=== PATIENT | male | born 1960 | race Caucasian/White ===

== ENCOUNTER → 2017-02-20 | Outpatient (CLI) | payer MEDICARE, MEDICAID ==
--- NOTE | 2017-02-20 12:53 | XCELERA REPORT ---
[address] [address] Lower Extremity Arterial Evaluation Name: JEYSON HELLER Age: 56 yrs Gender: Male : 1960 Patient Status: Outpatient Patient Location: Study Date: 02/20/2017 10:25 AM Procedure: A color flow and duplex scan of the lower extremity arteries was performed bilaterally with velocity and waveform anaylsis. Ankle brachial indicies performed. Reason For Study: PAD Ordering Physician: CHARLEY ATKINSON Performed By: Chiara Batista Measurements and Calculations Right Left MEDICAL INSTRUCTOR PSV 114.1 97.6 cm/sec Prox PFA PSV -106.2 -82.5 cm/sec Prox SFA PSV -128.9 105.9 cm/sec Mid SFA PSV -109.7 -101.2 cm/sec Dist SFA PSV -110.3 -134.1 cm/sec Prox Pop A PSV 59.7 85.9 cm/sec Prox KLARISSA PSV 80.5 257.7 cm/sec Mid KLARISSA PSV 101.2 33.7 cm/sec Dist KLARISSA PSV 78.6 cm/sec Prox EVENT MARKETING ASSISTANT PSV 60.9 cm/sec Mid EVENT MARKETING ASSISTANT PSV 73.5 cm/sec Dist EVENT MARKETING ASSISTANT PSV 18.6 -63.3 cm/sec Prox Rayray A PSV 16.1 51.9 cm/sec Mid Rayray A PSV 17.3 77.0 cm/sec Dist Rayray A PSV -20.6 -73.9 cm/sec Goldy Pedis PSV 96.3 42.7 cm/sec Right Side Arterial Evaluation Normal velocity and triphasic waveforms noted from the Common Femoral artery to the Dorsalis Pedis artery. Biphasic in the Deep Femoral. Occluded Posterior Tibial with retrograde reconstitution. Ankle Brachial index was not obtainable due to non compressibility. Left Side Arterial Evaluation Normal velocity and triphasic waveforms noted from the Common Femoral artery to the Posterior Tibial artery. Biphasic in the Deep Femoral. Occluded Anterior Tibial after a proximal stenosis. Biphasic Dorsalis Pedis, reconstituted. Ankle Brachial index was not obtainable due to non compressibility. Interpretation Summary Mild hemodynamically significant lesions in the bilateral lower extremities, on duplex imaging, at rest. Quite good apparent collateral formation. : CHARLEY ATKINSON > Margarito Mata
== END ==
LOC: SP 09:59
PROVIDERS: ATTEND Surgery
DX: I73.9 Peripheral vascular disease, unspecified (principal)
CPT/HCPCS: 93925

== ENCOUNTER 2017-03-14 05:06 | Inpatient (IN) | payer MEDICARE, MEDICAID ==
--- NOTE | 2017-03-14 05:16 | ER Document Report ---
Doctor's Note Notes: 03/14/17 05:14 I performed a quick triage evaluation of the patient. Patient is a 56-year-old male who presents with complaints of severe vomiting and diarrhea. Patient then apparently passed out. Paramedics were called. When they arrived patient had an O2 saturation in the 70s. He said his breathing very shallow. He was poorly responsive aaccording to the paramedics. Upon office workforce planner arrival he was also hypotensive, but this has resolved with a fluids bolus. He is now much more responsive awake and alert. Does not remember exactly what happened. He denies any chest pain or back pain. No abdominal pain. Patient apparently had a large amount of diarrheal stool health. There is no blood in it. No vomiting of blood. He denies drinking alcohol on a daily basis. He denies any recent fevers or infections. He has history of COPD. Has a history of diabetes. He does have a healing toe infection on the big toe of the left foot. On exam patient is very thin and cachectic. He is awake alert and answering questions appropriately hoarse. He is in no distress. He denies any pain. Heart is regular rate and rhythm. His abdomen is soft nontender. There is no focal neurologic deficits on exam this time. EKG has been performed in shows sinus tachycardia. Patient has some scattered concave up ST segment elevations without reciprocal depressions. No ischemic T-wave inversions. Intervals are within normal range. I will order blood work. Will order chest x -ray. Will place on quality assurance monitor body. 03/14/17 05:18
[2017-03-14 05:45] LABS: HEMATOCRIT 40.6 % (37.9-51.0); HEMOGLOBIN 13.3 g/dL (13.5-17.0); HGB HCT DIFFERENCE -0.7; MEAN CORPUSCULAR HEMOGLOBIN 29.2 pg (27.0-33.4); MEAN CORPUSCULAR HGB CONC 32.7 g/dL (32.0-36.0); MEAN CORPUSCULAR VOLUME 89 fl (80-97); RED BLOOD COUNT 4.54 10^6/uL (4.35-5.55); RED CELL DISTRIBUTION WIDTH 14.4 % (11.5-14.0); WHITE BLOOD COUNT 13.4 10^3/uL (4.0-10.5)
[2017-03-14] MEDS ORDERED: NORMAL SALINE 1000 ML 1,000 ML IV ONE ×2 (05:45→06:33)
--- NOTE | 2017-03-14 05:51 | RADIOLOGY REPORT (SQ) ---
EXAM DESCRIPTION: CHEST SINGLE VIEW COMPLETED DATE/TIME: 03/14/2017 5:39 am REASON FOR STUDY: syncope COMPARISON: 06/15/2015. EXAM PARAMETERS: NUMBER OF VIEWS: One view. TECHNIQUE: Single frontal radiographic view of the chest acquired. RADIATION DOSE: NA LIMITATIONS: None. FINDINGS: LUNGS AND PLEURA: Small to moderate reticulonodular markings and or scar of the left upper lobe and left mid-lower lung field. Moderate left lung volume. No significant interval change comp ared with prior exam from May 2015. MEDIASTINUM AND HILAR STRUCTURES: No masses. Contour normal. HEART AND VASCULAR STRUCTURES: Heart normal in size. Normal vasculature. BONES: No acute findings. HARDWARE: None in the chest. OTHER: No other significant finding. IMPRESSION: No acute cardiopulmonary findings. TECHNICAL DOCUMENTATION: JOB ID: [id number]
[2017-03-14 06:01] LABS: ALANINE AMINOTRANSFERASE 20 U/L (21-72); ALBUMIN 3.1 g/dL (3.5-5.0); ALKALINE PHOSPHATASE 95 U/L (38-126); ANION GAP 11 (5-19); ASPARTATE AMINO TRANSFERASE 30 U/L (17-59); BILIRUBIN,DIRECT 0.6 mg/dL (0.0-0.4); BILIRUBIN,TOTAL 0.8 mg/dL (0.2-1.3); BLOOD UREA NITROGEN 15 mg/dL (7-20); CALCIUM 8.7 mg/dL (8.4-10.2); CARBON DIOXIDE 23 mmol/L (22-30); CHLORIDE 99 mmol/L (98-107); CREATINE KINASE 187 U/L (55-170); CREATININE RESULT 1.72 mg/dL (0.52-1.25); GLUCOSE 141 mg/dL (75-110); LIPASE 57.3 U/L (23-300); POTASSIUM 3.9 mmol/L (3.6-5.0); SODIUM 133.3 mmol/L (137-145)
[2017-03-14 06:03] LABS: ALCOHOL < 10 mg/dL (NONE DETECTED)
[2017-03-14 06:08] LABS: BAND NEUTROPHILS % (MANUAL) 9 % (3-5); BASOPHILS % (MANUAL) 0 % (0-2); EOSINOPHILS % (MANUAL) 1 % (0-6); LYMPHOCYTES % (MANUAL) 6 % (13-45); TOTAL CELLS COUNTED 100
[2017-03-14 06:09] LABS: RBC MORPHOLOGY COMMENT NORMO-CYTIC/CHROMIC; TOXIC GRANULATION SLIGHT; TOXIC VACUOLATION PRESENT
[2017-03-14 06:12] LABS: CREATINE KINASE MB 2.34 ng/mL (<4.55)
[2017-03-14 06:15] LABS: TROPONIN I 0.043 ng/mL
--- NOTE | 2017-03-14 06:29 | ER Document Report ---
ED Blood Pressure Problem - General Mode of Arrival: Medic Information source: Patient, Friend - Girlfriend, Emergency Med Personnel TRAVEL OUTSIDE OF THE [place] IN LAST 30 DAYS: No - HPI Patient complains to provider of: Low blood pressure Onset: Just prior to arrival Associated symptoms: Other - See above <MAYO FOSTER - Last Filed: 03/14/17 07:02> <FABIEN PASCUAL - Last Filed: 03/14/17 11:43> - General Chief Complaint: Blood Pressure Problem Stated Complaint: low blood pressure Time Seen by Provider: 03/14/17 06:17 Notes: Patient is a 56 year old male, with a past medical history including diabetes and IBS constipation type, who presents to the emergency department via EMS for low blood pressure and unresponsiveness. Per girlfriend, patient had nausea, vomiting, and diarrhea for about 3 hours between 1230 and 330 this morning in which he lost around 3 gallons of fluids. Girlfriend states that this episode was not like his normal IBS episodes. After going to lay down patient became incoherent, girlfriend took BP and it was low so she called EMS at around 0400. EMS report that patient had O2 saturation of 75% and a blood pressure of 70/30 with pulse of 130BPM when they arrived. Patient states he is feeling normal now and would like to go home after receiving 2L of fluids en route and 1L in facility. Patient's girlfriend reports patient has had an infection in his left big toe for the past 6 months which is being monitored by Dr. Ayden Hyde DPM. Patient has had no recent antibiotics. Patient currently takes 10mg of Lisinopril BID. (MAYO FOSTER) - Related Data Allergies/Adverse Reactions: No Known Allergies Allergy (Unverified 06/13/12 00:21) Home Medications: Current Home Medications Albuterol Sulfate [Proair HFA Inhalation Aerosol 8.5 gm MDI] 2 puff IH Q4HP PRN 03/14/17 [History] Cetirizine HCl [Zyrtec 10 mg Tablet] 10 mg PO DAILY 03/14/17 [History] Fluticasone/Salmeterol [Advair 250-50 Diskus 14 Dose/Diskus] 1 puff IH Q12 03/14 [History] Gabapentin [Neurontin 300 mg Capsule] 300 mg PO Q8 03/14/17 [History] Insulin Glargine,Hum.rec.anlog [Lantus Solostar] 19 units SQ QHS 03/14/17 [ History] Insulin Lispro [Humalog Insulin (Lispro) 100 unit/mL] 13 units SQ [id number] [History] Insulin Lispro [Humalog Insulin (Lispro) 100 unit/mL] 19 units SQ BIDLS [History] Lisinopril [Prinivil] 20 mg PO DAILY 03/14/17 [History] Omeprazole 40 mg PO DAILY 03/14/17 [History] Oxycodone HCl/Acetaminophen [Percocet 10-325 mg Tablet] 1 tab PO Q8 03/14/17 [ History] Pentoxifylline [Trental 400 mg Tablet.sa] 400 mg PO Q8 03/14/17 [History] Ropinirole HCl 1.5 mg PO DAILY 03/14/17 [History] Simvastatin [Zocor 20 mg Tablet] 20 mg PO QHS 03/14/17 [History] Past Medical History - General Information source: Patient - Social History Smoking Status: Current Every Day Smoker Family History: Reviewed & Not Pertinent Patient has suicidal ideation: No Patient has homicidal ideation: No - Past Medical History Cardiac Medical History: Reports: Hx Hypercholesterolemia, Hx Hypertension Pulmonary Medical History: Reports: Hx COPD Endocrine Medical History: Reports: Hx Diabetes Mellitus Type 2 GI Medical History: Reports: Hx Gastroesophageal Reflux Disease, Hx Irritable Bowel - constipation type Past Surgical History: Reports: Hx Orthopedic Surgery - Immunizations Immunizations up to date: Yes Hx Diphtheria, Pertussis, Tetanus Vaccination: Yes - unk <MAYO FOSTER - Last Filed: 03/14/17 07:02> Review of Systems - Review of Systems Constitutional: See HPI, Other - low blood pressure and incoherrent EENT: No symptoms reported Cardiovascular: No symptoms reported Respiratory: No symptoms reported Gastrointestinal: See HPI, Diarrhea, Nausea, Vomiting Genitourinary: No symptoms reported Male Genitourinary: No symptoms reported Musculoskeletal: No symptoms reported Skin: No symptoms reported Hematologic/Lymphatic: No symptoms reported Neurological/Psychological: No symptoms reported -: Yes All other systems reviewed and negative <MAYO FOSTER - Last Filed: 03/14/17 07:02> Physical Exam - Vital signs Interpretation: Normal - General General appearance: Appears well, Other - sleepy during exam - HEENT Head: Normocephalic, Atraumatic - Respiratory Respiratory status: No respiratory distress Chest status: Nontender Breath sounds: Normal Chest palpation: Normal - Cardiovascular Rhythm: Regular Heart sounds: Normal auscultation Murmur: No - Abdominal Inspection: Normal Distension: No distension Bowel sounds: Normal Tenderness: Nontender Organomegaly: No organomegaly - Back Back: Normal, Nontender - Extremities General upper extremity: Normal inspection Foot: Other - chronic ulcer on left 1st toe - Neurological Neuro grossly intact: Yes Cognition: Normal Orientation: AAOx4 [place] Coma Scale Eye Opening: Spontaneous [place] Coma Scale Verbal: Oriented [place] Coma Scale Motor: Obeys Commands [place] Coma Scale Total: 15 Speech: Normal - Psychological Associated symptoms: Normal affect, Normal mood - Skin Skin Temperature: Warm Skin Moisture: Dry Skin Color: Normal <MAYO FOSTER - Last Filed: 03/14/17 07:02> Course - Laboratory Result Diagrams: 03/14/17 05:15 03/14/17 05:15 <MAYO FOSTER - Last Filed: 03/14/17 07:02> - Laboratory Result Diagrams: 03/14/17 05:15 03/14/17 05:15 - Diagnostic Test Radiology reviewed: Image reviewed, Reports reviewed - Patient shows stable COPD - EKG Interpretation by Tx EKG shows normal: Sinus rhythm, [place], Intervals, QRS Complexes, ST-T Waves Rate: Tachycardia - 116 P Waves: LAE - Consults Dr. De LaV ega Consulted provider: will come to ER <FABIEN PASCUAL - Last Filed: 03/14/17 11:43> - Vital Signs Vital signs: Temp Pulse Resp BP Pulse Ox 98.3 F 117 H 18 136/79 H 100 03/14/17 05:14 03/14/17 05:14 03/14/17 10:31 03/14/17 10:31 03/14/17 11:00 - Laboratory Laboratory results interpreted by me: 03/14/17 03/14/17 03/14/17 05:15 05:15 05:15 WBC 13.4 H Hgb 13.3 L RDW 14.4 H Band Neutrophils % 9 H Lymphocytes % (Manual) 6 L Abs Neuts (Manual) 11.0 H Abs Monocytes (Manual) 1.5 H Sodium 133.3 L Creatinine 1.72 H Est GFR ( Amer) 50 L Est GFR (Non-Af Amer) 41 L Glucose 141 H POC Glucose Lactic Acid 3.2 H Direct Bilirubin 0.6 H ALT 20 L Creatine Kinase 187 H Total Protein 6.0 L Albumin 3.1 L 03/14/17 05:46 WBC Hgb RDW Band Neutrophils % Lymphocytes % (Manual) Abs Neuts (Manual) Abs Monocytes (Manual) Sodium Creatinine Est GFR ( Amer) Est GFR (Non-Af Amer) Glucose POC Glucose 116 H Lactic Acid Direct Bilirubin ALT Creatine Kinase Total Protein Albumin Critical Care Note - Critical Care Note Total time excluding time spent on procedures (mins): 45 <FABIEN PASCUAL - Last Filed: 03/14/17 11:43> Discharge <MAYO FOSTER - Last Filed: 03/14/17 07:02> - Discharge Admitting Provider: Hospitalist Unit Admitted: IMCU <FABIEN PASCUAL - Last Filed: 03/14/17 11:43> - Discharge Clinical Impression: Nausea, vomiting and diarrhea, Septic shock Hypotension Qualifiers: Hypotension type: other hypotension type Qualified Code(s): I95.89 - Other hypotension Leukocytosis Qualifiers: Leukocytosis type: bandemia Qualified Code(s): D72.825 - Bandemia COPD (chronic obstructive pulmonary disease) Qualifiers: COPD type: unspecified COPD Qualified Code(s): J44.9 - Chronic obstructive pulmonary disease, unspecified Diabetes Qualifiers: Diabetes mellitus type: type 2 Diabetes mellitus complication status: with unspecified complications Diabetes mellitus director long term care insulin use: unspecified longterm insulin use status Qualified Code(s): E11.8 - Type 2 diabetes mellitus with unspecified complications Condition: Fair Disposition: ADMITTED INPATIENT Scribe Attestation: 03/14/17 09:07 I personally performed the services described in the documentation, reviewed and edited the documentation which was dictated to the scribe in my presence, and it accurately records my words and actions. (FABIEN PASCUAL) Scribe Documentation - Scribe Written by Scribe:: randy Knight, 03/14/17, 0704 acting as scribe for :: Lynnette <MAYO FOSTER - Last Filed: 03/14/17 07:02>
[2017-03-14] MEDS ORDERED: ERTAPENEM SODIUM INJ 1 GM VIAL IV ONE (07:01)
[2017-03-14] MEDS ORDERED: RINGERS SOLUTION,LACTATED 1,000 ML IV ONE (07:43)
[2017-03-14] MEDS ORDERED: ONDANSETRON HCL INJ/PF 4 MG/2 ML SDV IV PRN (09:05)
[2017-03-14] MEDS: DEXTROSE 5%-NORMAL SALINE 1,000 ML IV PRN ×2 (09:55→20:23)
[2017-03-14] MEDS ORDERED: ENOXAPARIN SODIUM INJ 40 MG/0.4 ML DISP.SYRIN SUBCUT ONE (10:00)
[2017-03-14 10:13] LABS: APPEARANCE,URINE CLEAR; BILIRUBIN,URINE NEGATIVE (NEGATIVE); GLUCOSE, URINE >=500 mg/dL (NEGATIVE); KETONES,URINE NEGATIVE (NEGATIVE); LEUKOCYTE ESTERASE,URINE NEGATIVE (NEGATIVE); NITRITE,URINE NEGATIVE (NEGATIVE); PROTEIN,URINE 30 mg/dL (NEGATIVE); URINE SPECIFIC GRAVITY 1.005; UROBILINOGEN,URINE NEGATIVE mg/dL (<2.0)
--- NOTE | 2017-03-14 14:03 | PDOC H&P ---
History of Present Illness Admission Date/PCP: 03/14/17 09:05 History of Present Illness: JEYSON HELLER is a 56 year old male with a background history of type 2 diabetes, hypertension, hyperlipidemia, COPD, ongoing tobacco abuse, irritable bowel syndrome with a tendency to constipation. Overnight he developed the fairly sudden onset of explosive nausea vomiting and diarrhea. He had several episodes. He gradually became more somnolent and incoherent. Low blood pressure was measured at home and he was brought by EMS to the hospital. The EMS also documented hypotension with a BP of 70/40 and a pulse of 130, as well as pulse oximetry of 75%. In the emergency department he received 5 L of IV fluid after which his blood pressure improved. His white blood count 13.4 with 73 segs and 9 bands and 11% monos. Creatinine was 1.72 with a baseline one year ago of 0.87. Lactic acid was 3.2. Chest x-ray is verbally reported as stable COPD. He received 1 g of Invanz in the ED. Blood cultures and urine analysis have been ordered. He will now be admitted to the MICU for further evaluation and treatment. Past Medical History Cardiac Medical History: Reports: Hyperlipidema, Hypertension Pulmonary Medical History: Reports: Chronic Obstructive Pulmonary Disease (COPD) Endocrine Medical History: Reports: Diabetes Mellitus Type 2 GI Medical History: Reports: Gastroesophageal Reflux Disease Past Surgical History Past Surgical History: Reports: Orthopedic Surgery Social History Smoking Status: Current Every Day Smoker - Advance Directive Resuscitation Status: Full Code Family History Family History: Reviewed & Not Pertinent Parental Family History Reviewed: No Children Family History Reviewed: No Sibling(s) Family History Reviewed.: No Medication/Allergy Home Medications: Albuterol Sulfate [Proair HFA Inhalation Aerosol 8.5 gm MDI] 2 puff IH Q4HP PRN 03/14/17 Cetirizine HCl [Zyrtec 10 mg Tablet] 10 mg PO DAILY 03/14/17 Fluticasone/Salmeterol [Advair 250-50 Diskus 14 Dose/Diskus] 1 puff IH Q12 03/14 Gabapentin [Neurontin 300 mg Capsule] 300 mg PO Q8 03/14/17 Insulin Glargine,Hum.rec.anlog [Lantus Solostar] 19 units SQ QHS 03/14/17 Insulin Lispro [Humalog Insulin (Lispro) 100 unit/mL] 13 units SQ WBRKFST Insulin Lispro [Humalog Insulin (Lispro) 100 unit/mL] 19 units SQ BIDLS Lisinopril [Prinivil] 20 mg PO DAILY 03/14/17 Omeprazole 40 mg PO DAILY 03/14/17 Oxycodone HCl/Acetaminophen [Percocet 10-325 mg Tablet] 1 tab PO Q8 03/14/17 Pentoxifylline [Trental 400 mg Tablet.sa] 400 mg PO Q8 03/14/17 Ropinirole HCl 1.5 mg PO DAILY 03/14/17 Simvastatin [Zocor 20 mg Tablet] 20 mg PO QHS 03/14/17 Allergies/Adverse Reactions: No Known Allergies Allergy (Unverified 06/13/12 00:21) Review of Systems ROS unobtainable: Due to mental status - somnolent Physical Exam Vital Signs: Temp Pulse Resp BP Pulse Ox 97.9 F 98 13 157/90 H 96 03/14/17 11:48 03/14/17 11:48 03/14/17 11:48 03/14/17 11:48 03/14/17 11:48 Intake & Output 03/13/17 03/14/17 03/15/17 06:59 06:59 06:59 Weight 54.7 kg General appearance: PRESENT: well-developed, well-nourished, other - appears ill , foul odor in room after recent diarrhea BM Head exam: PRESENT: atraumatic, normocephalic Eye exam: PRESENT: conjunctiva pink, EOMI, PERRLA. ABSENT: scleral icterus Ear exam: PRESENT: normal external ear exam Mouth exam: PRESENT: dry mucosa, tongue midline Neck exam: ABSENT: carotid bruit, JVD, lymphadenopathy, thyromegaly Respiratory exam: PRESENT: clear to auscultation zaid. ABSENT: rales, rhonchi, wheezes Cardiovascular exam: PRESENT: RRR. ABSENT: diastolic murmur, rubs, systolic murmur Pulses: PRESENT: normal dorsalis pedis pul Vascular exam: PRESENT: normal capillary refill GI/Abdominal exam: PRESENT: soft. ABSENT: distended, guarding, mass, organolmegaly, rebound, tenderness Rectal exam: PRESENT: deferred Extremities exam: PRESENT: full ROM. ABSENT: calf tenderness, clubbing, pedal edema Neurological exam: PRESENT: altered, other - somnolent. ABSENT: motor sensory deficit Skin exam: PRESENT: dry, intact, warm. ABSENT: cyanosis, rash Results Laboratory Results: 03/14/17 03/14/17 09:45 10:58 Lactic Acid 1.0 Urine Color YELLOW Urine Appearance CLEAR Urine pH 7.0 Ur Specific [place] 1.005 Urine Protein 30 H Urine Glucose (UA) >=500 H Urine Ketones NEGATIVE Urine Blood SMALL H Urine Nitrite NEGATIVE Ur Leukocyte Esterase NEGATIVE Urine WBC (Auto) 1 Urine RBC (Auto) 1 Impressions: Chest X-Ray 03/14/17 05:12 IMPRESSION: No acute cardiopulmonary findings. Assessment & Plan - Diagnosis (1) Gastroenteritis Is this a current diagnosis for this admission?: YesPlan: This may be viral in etiology. Stool culture has been requested. (2) Dehydration Is this a current diagnosis for this admission?: YesPlan: He received 5 L of IV fluids in the ED. We will continue IV fluids. (3) Hypotension Qualifiers: Hypotension type: other hypotension type Qualified Code(s): I95.89 - Other hypotension Is this a current diagnosis for this admission?: YesPlan: The blood pressure is already better after IV fluids. Will monitor. Hold lisinopril for now. (4) DM2 (diabetes mellitus, type 2) Qualifiers: Diabetes mellitus complication status: without complication Is this a current diagnosis for this admission?: YesPlan: We will continue home medications, monitor, and adjust accordingly. (5) HTN (hypertension) Qualifiers: Hypertension type: essential hypertension Qualified Code(s): I10 - Essential (primary) hypertension Is this a current diagnosis for this admission?: YesPlan: He is actually hypotensive at this point. Will hold lisinopril. (6) COPD (chronic obstructive pulmonary disease) Qualifiers: COPD type: unspecified COPD Qualified Code(s): J44.9 - Chronic obstructive pulmonary disease, unspecified Is this a current diagnosis for this admission?: YesPlan: There is history of ongoing tobacco abuse. Will use nicotine patch if he is symptomatic. (7) Hyperlipidemia associated with type 2 diabetes mellitus Is this a current diagnosis for this admission?: Yes (8) GERD (gastroesophageal reflux disease) Qualifiers: Esophagitis presence: esophagitis presence not specified Qualified Code(s): K21.9 - Gastro-esophageal reflux disease without esophagitis Is this a current diagnosis for this admission?: YesPlan: Continue PPI. - Time Time Spent: 50 to 70 Minutes Critical Time spent with patient: 35 or more minutes
[2017-03-14] MEDS ORDERED: ALBUTEROL SULFATE HFA (90 MCG/PUFF) 200 PUFF/8.5 GM MDI IH PRN (14:06)
[2017-03-14] MEDS: METRONIDAZOLE 500 MG/NS RTU 100 ML IV SCH (17:38)
[2017-03-14] MEDS ORDERED: GLUCAGON,HUMAN RECOMB 1 MG INJ IM PRN (18:42)
[2017-03-14] MEDS ORDERED: DEXTROSE 50%-WATER SYRINGE 12.5 GM/25 ML DOSE IV PRN (18:42)
[2017-03-14] MEDS ORDERED: DEXTROSE 50%-WATER SYRINGE 25 GM/50 ML DOSE IV PRN (18:42)
[2017-03-14] MEDS ORDERED: DEXTROSE 40% GEL 15 GM TUBE X 2 PO PRN (18:42)
[2017-03-14] MEDS: SIMVASTATIN 10 MG TABLET PO SCH (21:31)
[2017-03-14] MEDS ORDERED: INSULIN GLARGINE,HUM.REC.ANLOG 1,000 UNIT/10 ML UNIT SUBCUT ONE (21:31)
[2017-03-14] MEDS: OXYCODONE-ACETAMINOPHEN 5-325 MG TABLET PO SCH (21:32)
[2017-03-14] MEDS: GABAPENTIN 300 MG CAPSULE PO SCH (21:32)
[2017-03-14] MEDS: OXYCODONE HCL IR 5 MG TABLET PO SCH (21:33)
[2017-03-14] MEDS: PENTOXIFYLLINE 400 MG TABLET.SA PO SCH (21:34)
[2017-03-14] MEDS: INSULIN GLARGINE,HUM.REC.ANLOG 300 UNIT/3 ML INSULN.PEN SUBCUT SCH (21:34)
[2017-03-14] MEDS: FLUTICASONE/SALMETEROL DISKUS 250-50 MCG/DOSE IH SCH (21:34)
[2017-03-14] MEDS ORDERED: METRONIDAZOLE 500 MG/NS RTU 250 MG in CONTAINER,EMPTY 1 EACH IV SCH (22:00)
[2017-03-14] MEDS ORDERED: (PENDING PHARMACY ID) (Oxycodone Hcl/Acetaminophen [Percocet 10-325 Mg Tablet] 1 TAB) PO SCH (22:00)
[2017-03-15] MEDS: METRONIDAZOLE 500 MG/NS RTU 100 ML IV SCH ×3 (03:05→17:25)
[2017-03-15 04:48] LABS: ABSOLUTE BASOPHILS # (AUTO) 0.1 10^3/uL (0.0-0.2); ABSOLUTE MONOCYTES (AUTO) 0.7 10^3/uL (0.1-1.4); ABSOLUTE NEUT (AUTO) 14.8 10^3/uL (1.7-8.2); BASOPHILS % (AUTO) 0.4 % (0-2); EOSINOPHILS % (AUTO) 0.1 % (0-6); HEMATOCRIT 33.8 % (37.9-51.0); HGB HCT DIFFERENCE -0.2; LYMPHOCYTES % (AUTO) 5.9 % (13-45); MEAN CORPUSCULAR HEMOGLOBIN 29.5 pg (27.0-33.4); MEAN CORPUSCULAR HGB CONC 33.2 g/dL (32.0-36.0); MEAN CORPUSCULAR VOLUME 89 fl (80-97); MONOCYTES % (AUTO) 4.1 % (3-13); RED CELL DISTRIBUTION WIDTH 14.6 % (11.5-14.0); SEGMENTED NEUTROPHILS % (AUTO) 89.5 % (42-78); WHITE BLOOD COUNT 16.6 10^3/uL (4.0-10.5)
[2017-03-15 04:57] LABS: HEMOGLOBIN 11.2 g/dL (13.5-17.0)
[2017-03-15 05:04] LABS: ANION GAP 6 (5-19); BLOOD UREA NITROGEN 21 mg/dL (7-20); CALCIUM 7.5 mg/dL (8.4-10.2); CARBON DIOXIDE 21 mmol/L (22-30); CHLORIDE 107 mmol/L (98-107); CREATININE RESULT 1.15 mg/dL (0.52-1.25); GLUCOSE 334 mg/dL (75-110); POTASSIUM 4.3 mmol/L (3.6-5.0); SODIUM 133.5 mmol/L (137-145)
[2017-03-15] MEDS: PENTOXIFYLLINE 400 MG TABLET.SA PO SCH ×3 (05:26→22:01)
[2017-03-15] MEDS: GABAPENTIN 300 MG CAPSULE PO SCH ×3 (05:27→22:00)
[2017-03-15] MEDS: OXYCODONE HCL IR 5 MG TABLET PO SCH ×3 (05:28→21:59)
[2017-03-15] MEDS: OXYCODONE-ACETAMINOPHEN 5-325 MG TABLET PO SCH ×3 (05:28→22:00)
[2017-03-15] MEDS: DEXTROSE 5%-NORMAL SALINE 1,000 ML IV PRN ×2 (05:43→17:33)
[2017-03-15] MEDS: INSULIN REG, HUMAN 100 UNIT/ML 3 ML VIAL (PYX) SUBCUT PRN ×3 (08:01→22:01)
[2017-03-15] MEDS: ENOXAPARIN SODIUM INJ 40 MG/0.4 ML DISP.SYRIN SUBCUT SCH (08:02)
[2017-03-15] MEDS ORDERED: LANSOPRAZOLE 30 MG TAB.RAP.DR PO ONE (09:15)
[2017-03-15] MEDS: CETIRIZINE 10 MG TABLET PO SCH (09:26)
[2017-03-15] MEDS: FLUTICASONE/SALMETEROL DISKUS 250-50 MCG/DOSE IH SCH ×2 (09:28→21:56)
[2017-03-15] MEDS ORDERED: ROPINIROLE HCL 1 MG TABLET PO SCH ×2 (10:00→22:00)
[2017-03-15] MEDS ORDERED: LANSOPRAZOLE 30 MG TAB.RAP.DR PO SCH (10:00)
--- NOTE | 2017-03-15 13:26 | PDOC PROGRESS REPORT ---
Subjective Progress Note for:: 03/15/17 Subjective:: JEYSON HELLER is a 56 year old male with a background history of type 2 diabetes, hypertension, hyperlipidemia, COPD, ongoing tobacco abuse, irritable bowel syndrome with a tendency to constipation. Overnight he developed the fairly sudden onset of explosive nausea vomiting and diarrhea. He had several episodes. He gradually became more somnolent and incoherent. Low blood pressure was measured at home and he was brought by EMS to the hospital. The EMS also documented hypotension with a BP of 70/40 and a pulse of 130, as well as pulse oximetry of 75%. In the emergency department he received 5 L of IV fluid after which his blood pressure improved. His white blood count 13.4 with 73 segs and 9 bands and 11% monos. Creatinine was 1.72 with a baseline one year ago of 0.87. Lactic acid was 3.2. Chest x-ray is verbally reported as stable COPD. He received 1 g of Invanz in the ED. Blood cultures and urine analysis have been ordered. He will now be admitted to the MICU for further evaluation and treatment. There was one recorded bowel movement yesterday. The patient denies any further nausea or vomiting. He has tolerated dinner yesterday and breakfast this morning. He is certainly much more awake and alert than he was yesterday on presentation. Physical Exam Vital Signs: Temp Pulse Resp BP Pulse Ox 97.4 F 91 18 100/48 L 97 03/15/17 11:02 03/15/17 11:02 03/15/17 11:02 03/15/17 11:02 03/15/17 11:02 Intake & Output 03/14/17 03/15/17 03/16/17 06:59 06:59 06:59 Intake Total 3137 Output Total 1550 Balance 1587 Weight 54.8 kg Additional comments: General appearance: PRESENT: well-developed, well-nourished, awake, alert, interactive Head exam: PRESENT: atraumatic, normocephalic Eye exam: PRESENT: conjunctiva pink, EOMI, PERRLA. ABSENT: scleral icterus Ear exam: PRESENT: normal external ear exam Mouth exam: PRESENT: dry mucosa, tongue midline Neck exam: ABSENT: carotid bruit, JVD, lymphadenopathy, thyromegaly Respiratory exam: PRESENT: clear to auscultation zaid. ABSENT: rales, rhonchi, wheezes Cardiovascular exam: PRESENT: RRR. ABSENT: diastolic murmur, rubs, systolic murmur Pulses: PRESENT: normal dorsalis pedis pul Vascular exam: PRESENT: normal capillary refill GI/Abdominal exam: PRESENT: soft. ABSENT: distended, guarding, mass, organolmegaly, rebound, tenderness Rectal exam: PRESENT: deferred Extremities exam: PRESENT: full ROM. ABSENT: calf tenderness, clubbing, pedal edema Neurological exam: PRESENT: awake, alert, interactive, moves all fours Skin exam: PRESENT: dry, intact, warm. ABSENT: cyanosis, rash Results Laboratory Results: 03/15/17 04:39 03/15/17 04:39 03/15/17 03/15/17 04:39 04:39 WBC 16.6 H RBC 3.80 L Hgb 11.2 L D Hct 33.8 L MCV 89 MCH 29.5 MCHC 33.2 RDW 14.6 H Plt Count 196 Seg Neutrophils % 89.5 H Lymphocytes % 5.9 L Monocytes % 4.1 Eosinophils % 0.1 Basophils % 0.4 Absolute Neutrophils 14.8 H Absolute Lymphocytes 1.0 Absolute Monocytes 0.7 Absolute Eosinophils 0.0 Absolute Basophils 0.1 Sodium 133.5 L Potassium 4.3 Chloride 107 Carbon Dioxide 21 L Anion Gap 6 BUN 21 H Creatinine 1.15 Est GFR ( Amer) > 60 Est GFR (Non-Af Amer) > 60 Glucose 334 H Calcium 7.5 L Impressions: Chest X-Ray 03/14/17 05:12 IMPRESSION: No acute cardiopulmonary findings. Assessment & Plan - Diagnosis (1) Gastroenteritis Is this a current diagnosis for this admission?: YesPlan: This may be viral in etiology. Stool culture has been requested. Nausea vomiting and diarrhea seem to be improving. Hydration status is improving. Continue IV fluids. Continue current diet. Awaiting results of blood and stool cultures. Elevated white blood count noted. (2) Dehydration Is this a current diagnosis for this admission?: YesPlan: He received 5 L of IV fluids in the ED and has continued on IV fluids. He is now also eating and drinking. He appears clinically better hydrated. BUN and creatinine have improved. Continue current plan. (3) Hypotension Qualifiers: Hypotension type: other hypotension type Qualified Code(s): I95.89 - Other hypotension Is this a current diagnosis for this admission?: YesPlan: Resolved. (4) DM2 (diabetes mellitus, type 2) Qualifiers: Diabetes mellitus complication status: without complication Is this a current diagnosis for this admission?: YesPlan: We will continue home medications, monitor, and adjust accordingly. (5) HTN (hypertension) Qualifiers: Hypertension type: essential hypertension Qualified Code(s): I10 - Essential (primary) hypertension Is this a current diagnosis for this admission?: YesPlan: Holding lisinopril until BP is hypertensive. (6) COPD (chronic obstructive pulmonary disease) Qualifiers: COPD type: unspecified COPD Qualified Code(s): J44.9 - Chronic obstructive pulmonary disease, unspecified Is this a current diagnosis for this admission?: YesPlan: There is history of ongoing tobacco abuse. Will use nicotine patch if he is symptomatic. (7) Hyperlipidemia associated with type 2 diabetes mellitus Is this a current diagnosis for this admission?: Yes (8) GERD (gastroesophageal reflux disease) Qualifiers: Esophagitis presence: esophagitis presence not specified Qualified Code(s): K21.9 - Gastro-esophageal reflux disease without esophagitis Is this a current diagnosis for this admission?: YesPlan: Continue PPI.
[2017-03-15] MEDS: INSULIN GLARGINE,HUM.REC.ANLOG 300 UNIT/3 ML INSULN.PEN SUBCUT SCH (21:55)
[2017-03-15] MEDS: SIMVASTATIN 10 MG TABLET PO SCH (21:59)
[2017-03-16] MEDS: METRONIDAZOLE 500 MG/NS RTU 100 ML IV SCH ×3 (01:33→17:15)
[2017-03-16] MEDS: DEXTROSE 5%-NORMAL SALINE 1,000 ML IV PRN (01:33)
[2017-03-16] MEDS: PENTOXIFYLLINE 400 MG TABLET.SA PO SCH ×3 (05:16→23:30)
[2017-03-16] MEDS: GABAPENTIN 300 MG CAPSULE PO SCH ×3 (05:16→23:30)
[2017-03-16] MEDS: OXYCODONE-ACETAMINOPHEN 5-325 MG TABLET PO SCH (05:17)
[2017-03-16] MEDS: OXYCODONE HCL IR 5 MG TABLET PO SCH (05:17)
[2017-03-16 05:54] LABS: ABSOLUTE BASOPHILS # (AUTO) 0.1 10^3/uL (0.0-0.2); ABSOLUTE EOSINOPHILS # (AUTO) 0.1 10^3/uL (0.0-0.6); ABSOLUTE LYMPHOCYTES (AUTO) 1.1 10^3/uL (0.5-4.7); ABSOLUTE MONOCYTES (AUTO) 0.5 10^3/uL (0.1-1.4); BASOPHILS % (AUTO) 0.4 % (0-2); HEMATOCRIT 33.3 % (37.9-51.0); HGB HCT DIFFERENCE -0.3; LYMPHOCYTES % (AUTO) 7.7 % (13-45); MEAN CORPUSCULAR HEMOGLOBIN 29.6 pg (27.0-33.4); MEAN CORPUSCULAR VOLUME 90 fl (80-97); MONOCYTES % (AUTO) 3.9 % (3-13); RED BLOOD COUNT 3.72 10^6/uL (4.35-5.55); RED CELL DISTRIBUTION WIDTH 14.5 % (11.5-14.0); WHITE BLOOD COUNT 13.8 10^3/uL (4.0-10.5)
[2017-03-16 06:14] LABS: ANION GAP 7 (5-19); BLOOD UREA NITROGEN 12 mg/dL (7-20); CALCIUM 7.6 mg/dL (8.4-10.2); CARBON DIOXIDE 21 mmol/L (22-30); CHLORIDE 102 mmol/L (98-107); CREATININE RESULT 0.81 mg/dL (0.52-1.25); GLUCOSE 111 mg/dL (75-110); POTASSIUM 3.4 mmol/L (3.6-5.0); SODIUM 129.9 mmol/L (137-145)
[2017-03-16] MEDS: LANSOPRAZOLE 30 MG TAB.RAP.DR PO SCH (07:53)
[2017-03-16] MEDS: ENOXAPARIN SODIUM INJ 40 MG/0.4 ML DISP.SYRIN SUBCUT SCH (07:53)
[2017-03-16] MEDS: CETIRIZINE 10 MG TABLET PO SCH (09:45)
[2017-03-16] MEDS: FLUTICASONE/SALMETEROL DISKUS 250-50 MCG/DOSE IH SCH ×2 (09:45→23:30)
[2017-03-16] MEDS ORDERED: LORAZEPAM INJ 2 MG/1 ML VIAL IV ONE (09:45)
[2017-03-16] MEDS ORDERED: LORAZEPAM INJ 2 MG/1 ML VIAL IV PRN ×2 (10:40→13:26)
--- NOTE | 2017-03-16 10:40 | PDOC PROGRESS REPORT ---
Subjective Progress Note for:: 03/16/17 Subjective:: JEYSON HELLER is a 56 year old male with a background history of type 2 diabetes, hypertension, hyperlipidemia, COPD, ongoing tobacco abuse, irritable bowel syndrome with a tendency to constipation. Overnight he developed the fairly sudden onset of explosive nausea vomiting and diarrhea. He had several episodes. He gradually became more somnolent and incoherent. Low blood pressure was measured at home and he was brought by EMS to the hospital. The EMS also documented hypotension with a BP of 70/40 and a pulse of 130, as well as pulse oximetry of 75%. In the emergency department he received 5 L of IV fluid after which his blood pressure improved. His white blood count 13.4 with 73 segs and 9 bands and 11% monos. Creatinine was 1.72 with a baseline one year ago of 0.87. Lactic acid was 3.2. Chest x-ray is verbally reported as stable COPD. He received 1 g of Invanz in the ED. Blood cultures and urine analysis have been ordered. He will now be admitted to the MICU for further evaluation and treatment. 03/15 - There was one recorded bowel movement yesterday. The patient denies any further nausea or vomiting. He has tolerated dinner yesterday and breakfast this morning. He is certainly much more awake and alert than he was yesterday on presentation. 03/16 -The patient again had only one bowel movement yesterday. Diarrhea has essentially resolved. Some residual nausea is not vomiting. She is eating poorly. Overnight he became restless and confused. There is history of alcohol use. Physical Exam Vital Signs: Temp Pulse Resp BP Pulse Ox 99.2 F 102 H 18 140/68 H 94 03/16/17 08:08 03/16/17 08:08 03/16/17 08:08 03/16/17 08:08 03/16/17 08:08 Intake & Output 03/15/17 03/16/17 03/17/17 06:59 06:59 06:59 Intake Total 3137 5024 Output Total 5460 6390 Balance 1587 3604 Weight 54.8 kg 55.4 kg Additional comments: General appearance: PRESENT: well-developed, well-nourished, awake, alert, interactive, follows commands, confused Head exam: PRESENT: atraumatic, normocephalic Eye exam: PRESENT: conjunctiva pink, EOMI, PERRLA. ABSENT: scleral icterus Ear exam: PRESENT: normal external ear exam Mouth exam: PRESENT: dry mucosa, tongue midline Neck exam: ABSENT: carotid bruit, JVD, lymphadenopathy, thyromegaly Respiratory exam: PRESENT: clear to auscultation zaid. ABSENT: rales, rhonchi, wheezes Cardiovascular exam: PRESENT: RRR. ABSENT: diastolic murmur, rubs, systolic murmur Pulses: PRESENT: normal dorsalis pedis pul Vascular exam: PRESENT: normal capillary refill GI/Abdominal exam: PRESENT: soft. ABSENT: distended, guarding, mass, organolmegaly, rebound, tenderness Rectal exam: PRESENT: deferred Extremities exam: PRESENT: full ROM. ABSENT: calf tenderness, clubbing, pedal edema Neurological exam: PRESENT: awake, alert, interactive, moves all fours to command, confused Skin exam: PRESENT: dry, intact, warm. ABSENT: cyanosis, rash Results Laboratory Results: 03/16/17 05:16 03/16/17 05:16 03/16/17 03/16/17 05:16 05:16 WBC 13.8 H RBC 3.72 L Hgb 11.0 L Hct 33.3 L MCV 90 MCH 29.6 MCHC 33.0 RDW 14.5 H Plt Count 197 Seg Neutrophils % 87.0 H Lymphocytes % 7.7 L Monocytes % 3.9 Eosinophils % 1.0 Basophils % 0.4 Absolute Neutrophils 12.0 H Absolute Lymphocytes 1.1 Absolute Monocytes 0.5 Absolute Eosinophils 0.1 Absolute Basophils 0.1 Sodium 129.9 L Potassium 3.4 L Chloride 102 Carbon Dioxide 21 L Anion Gap 7 BUN 12 Creatinine 0.81 Est GFR ( Amer) > 60 Est GFR (Non-Af Amer) > 60 Glucose 111 H Calcium 7.6 L 03/14/17 09:24 Stool - Stool - Final 03/14/17 09:24 Stool - Stool Stool Culture - Final NO SALMONELLA, SHIGELLA, CAMPYLOBACTER, OR E.COLI 0157 RECOVERED. NEGATIVE FOR SHIGA TOXINS 1&2. Impressions: Chest X-Ray 03/14/17 05:12 IMPRESSION: No acute cardiopulmonary findings. Assessment & Plan - Diagnosis (1) Gastroenteritis Is this a current diagnosis for this admission?: YesPlan: This may be viral in etiology. Stool culture negative. Blood cultures negative 2. Leukocytosis improving. Nausea, vomiting and diarrhea improving. Hydration status is improving. Mild hyponatremia and mild hypokalemia. Continue IV fluids. Continue current diet. (2) Dehydration Is this a current diagnosis for this admission?: YesPlan: He received 5 L of IV fluids in the ED and has continued on IV fluids. He is now also eating and drinking, but perhaps not sufficiently. He appears clinically rehydrated. BUN and creatinine have improved. Continue current plan. (3) Hypotension Qualifiers: Hypotension type: other hypotension type Qualified Code(s): I95.89 - Other hypotension Is this a current diagnosis for this admission?: YesPlan: Resolved. (4) DM2 (diabetes mellitus, type 2) Qualifiers: Diabetes mellitus complication status: without complication Is this a current diagnosis for this admission?: YesPlan: Controlled on current Rx. We will continue to monitor, and adjust Rx accordingly. (5) HTN (hypertension) Qualifiers: Hypertension type: essential hypertension Qualified Code(s): I10 - Essential (primary) hypertension Is this a current diagnosis for this admission?: YesPlan: Holding lisinopril until BP is hypertensive. (6) COPD (chronic obstructive pulmonary disease) Qualifiers: COPD type: unspecified COPD Qualified Code(s): J44.9 - Chronic obstructive pulmonary disease, unspecified Is this a current diagnosis for this admission?: YesPlan: There is history of ongoing tobacco abuse. Start nicotine patch. (7) Hyperlipidemia associated with type 2 diabetes mellitus Is this a current diagnosis for this admission?: Yes (8) GERD (gastroesophageal reflux disease) Qualifiers: Esophagitis presence: esophagitis presence not specified Qualified Code(s): K21.9 - Gastro-esophageal reflux disease without esophagitis Is this a current diagnosis for this admission?: YesPlan: Continue PPI. (9) Alcohol withdrawal delirium Is this a current diagnosis for this admission?: YesPlan: Will start with Ativan [id number].
[2017-03-16] MEDS ORDERED: POTASSIUM CHLORIDE 10 MEQ TABLET.SA PO ONE (12:00)
[2017-03-16] MEDS ORDERED: NICOTINE 21 MG/24 HR PATCH.TD24 TD ONE (12:00)
[2017-03-16] MEDS: DEXTROSE 40% GEL 15 GM TUBE PO PRN ×2 (12:15→18:24)
[2017-03-16] MEDS ORDERED: LISINOPRIL 10 MG TABLET PO ONE (12:30)
[2017-03-16] MEDS ORDERED: OXYCODONE-ACETAMINOPHEN 5-325 MG TABLET PO PRN ×2 (13:31→21:31)
[2017-03-16] MEDS ORDERED: NALOXONE HCL INJ/PF 0.4 MG/1 ML SDV IV ONE (13:45)
--- NOTE | 2017-03-16 14:13 | RADIOLOGY REPORT (SQ) ---
EXAM DESCRIPTION: CHEST SINGLE VIEW COMPLETED DATE/TIME: 03/16/2017 1:46 pm REASON FOR STUDY: hypoxemia COMPARISON: 03/14/2017. EXAM PARAMETERS: NUMBER OF VIEWS: One view. TECHNIQUE: Single frontal radiographic view of the chest acquired. RADIATION DOSE: NA LIMITATIONS: None. FINDINGS: LUNGS AND PLEURA: Developing airspace disease in the lower lobes. No pleural effusion. N o pneumothorax. MEDIASTINUM AND HILAR STRUCTURES: No masses. Contour normal. HEART AND VASCULAR STRUCTURES: Heart upper limits of normal in size. Normal vasculature. BONES: No acute findings. HARDWARE: None in the chest. OTHER: No other significant finding. IMPRESSION: DEVELOPING AIRSPACE DISEASE IN THE LOWER LOBES, CONCERNING FOR PNEUMONIA. TECHNICAL DOCUMENTATION: JOB ID: [id number]
[2017-03-16 15:43] LABS: ARTERIAL BLOOD BASE EXCESS -3.8 mmol/L; ARTERIAL BLOOD O2 SATURATION 94.2 % (94-98)
[2017-03-16] MEDS ORDERED: POTASSIUM CHLORIDE 20 MEQ/15 ML UDCUP PO ONE (16:30)
[2017-03-16] MEDS ORDERED: IPRATROPIUM/ALBUTEROL 0.5-2.5 MG/3 ML AMPUL NEB ONE (21:45)
[2017-03-16] MEDS ORDERED: LEVOFLOXACIN 750 MG/D5W RTU 750 MG/150 ML RTUPB IV ONE (22:00)
[2017-03-16 22:13] LABS: ALANINE AMINOTRANSFERASE 31 U/L (21-72); ALBUMIN 2.4 g/dL (3.5-5.0); ALKALINE PHOSPHATASE 66 U/L (38-126); ANION GAP 8 (5-19); ASPARTATE AMINO TRANSFERASE 26 U/L (17-59); BILIRUBIN,DIRECT 0.2 mg/dL (0.0-0.4); BILIRUBIN,TOTAL 0.4 mg/dL (0.2-1.3); BLOOD UREA NITROGEN 6 mg/dL (7-20); CALCIUM 7.3 mg/dL (8.4-10.2); CARBON DIOXIDE 23 mmol/L (22-30); CHLORIDE 102 mmol/L (98-107); CREATINE KINASE 56 U/L (55-170); CREATININE RESULT 0.81 mg/dL (0.52-1.25); GLUCOSE 210 mg/dL (75-110); POTASSIUM 3.2 mmol/L (3.6-5.0); SODIUM 132.8 mmol/L (137-145)
[2017-03-16 22:23] LABS: ABSOLUTE EOSINOPHILS # (AUTO) 0.1 10^3/uL (0.0-0.6); ABSOLUTE MONOCYTES (AUTO) 0.4 10^3/uL (0.1-1.4); ABSOLUTE NEUT (AUTO) 10.1 10^3/uL (1.7-8.2); BASOPHILS % (AUTO) 0.2 % (0-2); EOSINOPHILS % (AUTO) 0.4 % (0-6); HEMATOCRIT 32.7 % (37.9-51.0); HEMOGLOBIN 10.8 g/dL (13.5-17.0); HGB HCT DIFFERENCE -0.3; LYMPHOCYTES % (AUTO) 8.7 % (13-45); MAGNESIUM 1.1 mg/dL (1.6-2.3); MEAN CORPUSCULAR HEMOGLOBIN 29.2 pg (27.0-33.4); MEAN CORPUSCULAR HGB CONC 32.9 g/dL (32.0-36.0); MEAN CORPUSCULAR VOLUME 89 fl (80-97); MONOCYTES % (AUTO) 3.7 % (3-13); RED BLOOD COUNT 3.69 10^6/uL (4.35-5.55); RED CELL DISTRIBUTION WIDTH 14.1 % (11.5-14.0); WHITE BLOOD COUNT 11.7 10^3/uL (4.0-10.5)
[2017-03-16 22:24] LABS: CREATINE KINASE MB 0.35 ng/mL (<4.55)
[2017-03-16 22:25] LABS: TROPONIN I < 0.012 ng/mL
--- NOTE | 2017-03-16 22:40 | RADIOLOGY REPORT (SQ) ---
EXAM DESCRIPTION: CHEST PA/LAT COMPLETED DATE/TIME: 03/16/2017 10:29 pm REASON FOR STUDY: sob COMPARISON: May 2015 EXAM PARAMETERS: NUMBER OF VIEWS: two views TECHNIQUE: Digital Frontal and Lateral radiographic views of the chest acquired. RADIATION DOSE: NA LIMITATIONS: none FINDINGS: LUNGS AND PLEURA: No acute consolidations are identified. There is some blunting of the c ostophrenic angles which I cannot exclude is tiny pleural effusions. Chronic appearing changes are a gain identified. MEDIASTINUM AND HILAR STRUCTURES: No masses or contour abnormalities. HEART AND VASCULAR STRUCTURES: Heart normal size. No evidence for failure. BONES: No acute findings. HARDWARE: None in the chest. OTHER: No other significant finding. IMPRESSION: No acute consolidations. There is some blunting of the costophrenic angles which I alecia ot exclude is tiny pleural effusions. Other findings as noted above TECHNICAL DOCUMENTATION: JOB ID: [id number] [employer]- All Rights Reserved
[2017-03-16] MEDS: FLUTICASONE NASAL SPRAY 50 MCG/SPRY 120 SPRAY/16 GM NASL SCH (23:30)
[2017-03-16] MEDS: SIMVASTATIN 10 MG TABLET PO SCH (23:30)
[2017-03-16] MEDS: INSULIN GLARGINE,HUM.REC.ANLOG 300 UNIT/3 ML INSULN.PEN SUBCUT SCH (23:39)
[2017-03-17] MEDS: MAGNESIUM SULFATE/D5W 100 ML IV SCH ×2 (00:23→01:43)
[2017-03-17] MEDS: POTASSI CL 20 MEQ/50 ML RIDER 20 MEQ/50 ML RTUPB IV SCH ×2 (00:24→02:13)
[2017-03-17] MEDS: METRONIDAZOLE 500 MG/NS RTU 100 ML IV SCH ×3 (01:42→17:03)
[2017-03-17] MEDS: DEXTROSE 5%-NORMAL SALINE 1,000 ML IV PRN (02:15)
[2017-03-17] MEDS: IPRATROPIUM/ALBUTEROL 0.5-2.5 MG/3 ML AMPUL NEB SCH ×4 (02:17→20:24)
[2017-03-17] MEDS ORDERED: MAGNESIUM SULFATE/D5W 1 GM/100 ML RTUPB IV ONE (03:15)
[2017-03-17 03:44] LABS: ABSOLUTE EOSINOPHILS # (AUTO) 0.1 10^3/uL (0.0-0.6); ABSOLUTE LYMPHOCYTES (AUTO) 1.2 10^3/uL (0.5-4.7); ABSOLUTE MONOCYTES (AUTO) 0.5 10^3/uL (0.1-1.4); ABSOLUTE NEUT (AUTO) 8.6 10^3/uL (1.7-8.2); BASOPHILS % (AUTO) 0.4 % (0-2); EOSINOPHILS % (AUTO) 0.6 % (0-6); HEMATOCRIT 31.6 % (37.9-51.0); HEMOGLOBIN 10.6 g/dL (13.5-17.0); HGB HCT DIFFERENCE 0.2; LYMPHOCYTES % (AUTO) 11.6 % (13-45); MEAN CORPUSCULAR HEMOGLOBIN 29.9 pg (27.0-33.4); MEAN CORPUSCULAR HGB CONC 33.7 g/dL (32.0-36.0); MEAN CORPUSCULAR VOLUME 89 fl (80-97); MONOCYTES % (AUTO) 4.6 % (3-13); RED BLOOD COUNT 3.55 10^6/uL (4.35-5.55); RED CELL DISTRIBUTION WIDTH 14.2 % (11.5-14.0); SEGMENTED NEUTROPHILS % (AUTO) 82.8 % (42-78); WHITE BLOOD COUNT 10.5 10^3/uL (4.0-10.5)
[2017-03-17] MEDS ORDERED: MAGNESIUM SULFATE 1 GM in D5W 100 ML IV ONE (03:45)
[2017-03-17 03:57] LABS: ANION GAP 5 (5-19); BLOOD UREA NITROGEN 6 mg/dL (7-20); CALCIUM 7.3 mg/dL (8.4-10.2); CARBON DIOXIDE 25 mmol/L (22-30); CHLORIDE 102 mmol/L (98-107); CREATINE KINASE 53 U/L (55-170); CREATININE RESULT 0.76 mg/dL (0.52-1.25); GLUCOSE 218 mg/dL (75-110); POTASSIUM 3.5 mmol/L (3.6-5.0); SODIUM 131.9 mmol/L (137-145)
[2017-03-17 04:11] LABS: TROPONIN I < 0.012 ng/mL
[2017-03-17] MEDS: GABAPENTIN 300 MG CAPSULE PO SCH ×3 (05:59→21:47)
[2017-03-17] MEDS: PENTOXIFYLLINE 400 MG TABLET.SA PO SCH ×3 (05:59→21:47)
[2017-03-17] MEDS: ENALAPRILAT DIHYDRATE INJ/PF 1.25 MG/1 ML SDV IV PRN (08:29)
[2017-03-17] MEDS: ENOXAPARIN SODIUM INJ 40 MG/0.4 ML DISP.SYRIN SUBCUT SCH (08:29)
[2017-03-17] MEDS: INSULIN REG, HUMAN 100 UNIT/ML 3 ML VIAL (PYX) SUBCUT PRN ×5 (08:29→22:45)
[2017-03-17] MEDS: LANSOPRAZOLE 30 MG TAB.RAP.DR PO SCH (08:30)
[2017-03-17] MEDS ORDERED: NYSTATIN TOPICAL POWDER 15 GM TP PRN (09:29)
[2017-03-17] MEDS: NICOTINE 21 MG/24 HR PATCH.TD24 TD SCH (10:21)
[2017-03-17] MEDS: FLUTICASONE NASAL SPRAY 50 MCG/SPRY 120 SPRAY/16 GM NASL SCH ×2 (10:21→21:47)
[2017-03-17] MEDS: CETIRIZINE 10 MG TABLET PO SCH (10:21)
[2017-03-17] MEDS: FLUTICASONE/SALMETEROL DISKUS 250-50 MCG/DOSE IH SCH ×2 (10:21→21:47)
[2017-03-17] MEDS: LISINOPRIL 10 MG TABLET PO SCH (10:25)
[2017-03-17 11:21] LABS: CREATINE KINASE MB 0.36 ng/mL (<4.55)
[2017-03-17 11:22] LABS: TROPONIN I < 0.012 ng/mL
[2017-03-17] MEDS ORDERED: DEXTROSE 5%-NORMAL SALINE 1,000 ML IV PRN (11:29)
--- NOTE | 2017-03-17 11:32 | PDOC PROGRESS REPORT ---
Subjective Progress Note for:: 03/17/17 Subjective:: JEYSON HELLER is a 56 year old male with a background history of type 2 diabetes, hypertension, hyperlipidemia, COPD, ongoing tobacco abuse, irritable bowel syndrome with a tendency to constipation. Overnight he developed the fairly sudden onset of explosive nausea vomiting and diarrhea. He had several episodes. He gradually became more somnolent and incoherent. Low blood pressure was measured at home and he was brought by EMS to the hospital. The EMS also documented hypotension with a BP of 70/40 and a pulse of 130, as well as pulse oximetry of 75%. In the emergency department he received 5 L of IV fluid after which his blood pressure improved. His white blood count 13.4 with 73 segs and 9 bands and 11% monos. Creatinine was 1.72 with a baseline one year ago of 0.87. Lactic acid was 3.2. Chest x-ray is verbally reported as stable COPD. He received 1 g of Invanz in the ED. Blood cultures and urine analysis have been ordered. He will now be admitted to the MICU for further evaluation and treatment. 03/15 - There was one recorded bowel movement yesterday. The patient denies any further nausea or vomiting. He has tolerated dinner yesterday and breakfast this morning. He is certainly much more awake and alert than he was yesterday on presentation. 03/16 -The patient again had only one bowel movement yesterday. Diarrhea has essentially resolved. Some residual nausea is not vomiting. He is eating poorly. Overnight he became restless and confused. There is history of alcohol use. 03/17 -Yesterday he became somnolent and altered. He responded to Narcan. Pain medications were reduced. Since then he has been more awake, alert, and is starting to eat and drink. He has had no further diarrhea. He denies nausea. He feels generally weak. Physical Exam Vital Signs: Temp Pulse Resp BP Pulse Ox 98.4 F 95 24 H 183/82 H 100 03/17/17 07:49 03/17/17 07:49 03/17/17 07:49 03/17/17 07:49 03/17/17 07:49 Intake & Output 03/16/17 03/17/17 03/18/17 06:59 06:59 06:59 Intake Total 5024 0848 Output Total 2600 4075 Balance 2424 673 Weight 55.4 kg 58.6 kg Additional comments: General appearance: PRESENT: well-developed, well-nourished, awake, alert, interactive, follows commands Head exam: PRESENT: atraumatic, normocephalic Eye exam: PRESENT: conjunctiva pink, EOMI, PERRLA. ABSENT: scleral icterus Ear exam: PRESENT: normal external ear exam Mouth exam: PRESENT: moist mucosa, tongue midline Neck exam: ABSENT: carotid bruit, JVD, lymphadenopathy, thyromegaly Respiratory exam: PRESENT: clear to auscultation zaid. ABSENT: rales, rhonchi, wheezes Cardiovascular exam: PRESENT: RRR. ABSENT: diastolic murmur, rubs, systolic murmur Pulses: PRESENT: normal dorsalis pedis pul Vascular exam: PRESENT: normal capillary refill GI/Abdominal exam: PRESENT: soft. ABSENT: distended, guarding, mass, organolmegaly, rebound, tenderness Rectal exam: PRESENT: deferred Extremities exam: PRESENT: full ROM. ABSENT: calf tenderness, clubbing, pedal edema Neurological exam: PRESENT: awake, alert, interactive, moves all fours to command Skin exam: PRESENT: dry, intact, warm. ABSENT: cyanosis, rash Results Laboratory Results: 03/17/17 03:24 03/17/17 03:24 03/16/17 03/16/17 03/16/17 14:24 21:50 21:50 WBC 11.7 H RBC 3.69 L Hgb 10.8 L Hct 32.7 L MCV 89 MCH 29.2 MCHC 32.9 RDW 14.1 H Plt Count 180 Seg Neutrophils % 87.0 H Lymphocytes % 8.7 L Monocytes % 3.7 Eosinophils % 0.4 Basophils % 0.2 Absolute Neutrophils 10.1 H Absolute Lymphocytes 1.0 Absolute Monocytes 0.4 Absolute Eosinophils 0.1 Absolute Basophils 0.0 Carbonic Acid 0.97 L HCO3/H2CO3 Ratio 20:1 ABG pH 7.41 ABG pCO2 32.3 L ABG pO2 69.1 L ABG HCO3 19.8 L ABG O2 Saturation 94.2 ABG Base Excess -3.8 FiO2 3L Sodium 132.8 L Potassium 3.2 L Chloride 102 Carbon Dioxide 23 Anion Gap 8 BUN 6 L Creatinine 0.81 Est GFR ( Amer) > 60 Est GFR (Non-Af Amer) > 60 Glucose 210 H Calcium 7.3 L Magnesium 1.1 L* Total Bilirubin 0.4 AST 26 ALT 31 Alkaline Phosphatase 66 Total Protein 5.0 L Albumin 2.4 L 03/17/17 03/17/17 03:24 03:24 WBC 10.5 RBC 3.55 L Hgb 10.6 L Hct 31.6 L MCV 89 MCH 29.9 MCHC 33.7 RDW 14.2 H Plt Count 169 Seg Neutrophils % 82.8 H Lymphocytes % 11.6 L Monocytes % 4.6 Eosinophils % 0.6 Basophils % 0.4 Absolute Neutrophils 8.6 H Absolute Lymphocytes 1.2 Absolute Monocytes 0.5 Absolute Eosinophils 0.1 Absolute Basophils 0.0 Carbonic Acid HCO3/H2CO3 Ratio ABG pH ABG pCO2 ABG pO2 ABG HCO3 ABG O2 Saturation ABG Base Excess FiO2 Sodium 131.9 L Potassium 3.5 L Chloride 102 Carbon Dioxide 25 Anion Gap 5 BUN 6 L Creatinine 0.76 Est GFR ( Amer) > 60 Est GFR (Non-Af Amer) > 60 Glucose 218 H Calcium 7.3 L Magnesium Total Bilirubin AST ALT Alkaline Phosphatase Total Protein Albumin 03/14/17 09:24 Stool - Stool - Final 03/14/17 09:24 Stool - Stool Stool Culture - Final NO SALMONELLA, SHIGELLA, CAMPYLOBACTER, OR E.COLI 0157 RECOVERED. NEGATIVE FOR SHIGA TOXINS 1&2. 03/16/17 03/16/17 03/17/17 21:50 21:50 03:24 Creatine Kinase 56 53 L CK-MB (CK-2) 0.35 Troponin I < 0.012 NT-Pro-B Natriuret Pep 1910 H 03/17/17 03:24 Creatine Kinase CK-MB (CK-2) 0.30 Troponin I < 0.012 NT-Pro-B Natriuret Pep Impressions: Chest X-Ray 03/16/17 00:00 IMPRESSION: No acute consolidations. There is some blunting of the costophrenic angles which I cannot exclude is tiny pleural effusions. Other findings as noted above Assessment & Plan - Diagnosis (1) Gastroenteritis Is this a current diagnosis for this admission?: YesPlan: This was probably viral in etiology. Stool culture negative. Blood cultures negative 2. Leukocytosis resolved. Nausea, vomiting and diarrhea improving/ resolved. Hydration status has improving. Mild hyponatremia and mild hypokalemia. Continue IV fluids. He is to push his oral diet and activity today. Anticipate discharge in 24-48 hours. (2) Dehydration Is this a current diagnosis for this admission?: YesPlan: He has been adequately rehydrated with IV fluids. He is now starting to eat and drink. Will reduce IV fluid rate. Will recheck BMP in a.m. (3) Hypotension Qualifiers: Hypotension type: other hypotension type Qualified Code(s): I95.89 - Other hypotension Is this a current diagnosis for this admission?: YesPlan: Resolved. (4) DM2 (diabetes mellitus, type 2) Qualifiers: Diabetes mellitus complication status: without complication Is this a current diagnosis for this admission?: YesPlan: Controlled on current Rx. We will continue to monitor, and adjust Rx accordingly. (5) HTN (hypertension) Qualifiers: Hypertension type: essential hypertension Qualified Code(s): I10 - Essential (primary) hypertension Is this a current diagnosis for this admission?: YesPlan: Have resumed lisinopril. (6) COPD (chronic obstructive pulmonary disease) Qualifiers: COPD type: unspecified COPD Qualified Code(s): J44.9 - Chronic obstructive pulmonary disease, unspecified Is this a current diagnosis for this admission?: YesPlan: There is history of ongoing tobacco abuse. On nicotine patch. (7) Hyperlipidemia associated with type 2 diabetes mellitus Is this a current diagnosis for this admission?: Yes (8) GERD (gastroesophageal reflux disease) Qualifiers: Esophagitis presence: esophagitis presence not specified Qualified Code(s): K21.9 - Gastro-esophageal reflux disease without esophagitis Is this a current diagnosis for this admission?: YesPlan: Continue PPI. (9) Alcohol withdrawal delirium Is this a current diagnosis for this admission?: YesPlan: Has apparently resolved.
[2017-03-17] MEDS ORDERED: ONDANSETRON HCL INJ/PF 4 MG/2 ML SDV IV PRN (14:54)
[2017-03-17] MEDS ORDERED: LEVOFLOXACIN 750 MG/D5W RTU 750 MG/150 ML RTUPB IV SCH (18:00)
[2017-03-17] MEDS: SIMVASTATIN 10 MG TABLET PO SCH (21:47)
[2017-03-17] MEDS: INSULIN GLARGINE,HUM.REC.ANLOG 300 UNIT/3 ML INSULN.PEN SUBCUT SCH (21:48)
[2017-03-18] MEDS: METRONIDAZOLE 500 MG/NS RTU 100 ML IV SCH (01:15)
[2017-03-18] MEDS: IPRATROPIUM/ALBUTEROL 0.5-2.5 MG/3 ML AMPUL NEB SCH ×4 (01:51→20:51)
[2017-03-18] MEDS: PENTOXIFYLLINE 400 MG TABLET.SA PO SCH ×3 (05:31→21:36)
[2017-03-18] MEDS: GABAPENTIN 300 MG CAPSULE PO SCH ×3 (05:31→21:36)
[2017-03-18 07:13] LABS: ANION GAP 9 (5-19); BLOOD UREA NITROGEN 6 mg/dL (7-20); CALCIUM 8.5 mg/dL (8.4-10.2); CARBON DIOXIDE 26 mmol/L (22-30); CHLORIDE 102 mmol/L (98-107); CREATININE RESULT 0.79 mg/dL (0.52-1.25); GLUCOSE 207 mg/dL (75-110); POTASSIUM 3.4 mmol/L (3.6-5.0); SODIUM 136.7 mmol/L (137-145)
[2017-03-18] MEDS: ENOXAPARIN SODIUM INJ 40 MG/0.4 ML DISP.SYRIN SUBCUT SCH (08:29)
[2017-03-18] MEDS: LANSOPRAZOLE 30 MG TAB.RAP.DR PO SCH (08:29)
[2017-03-18] MEDS: LISINOPRIL 10 MG TABLET PO SCH (10:17)
[2017-03-18] MEDS: CETIRIZINE 10 MG TABLET PO SCH (10:17)
[2017-03-18] MEDS: FLUTICASONE/SALMETEROL DISKUS 250-50 MCG/DOSE IH SCH ×2 (10:18→21:36)
[2017-03-18] MEDS: NICOTINE 21 MG/24 HR PATCH.TD24 TD SCH (10:20)
[2017-03-18] MEDS: FLUTICASONE NASAL SPRAY 50 MCG/SPRY 120 SPRAY/16 GM NASL SCH ×2 (10:21→21:37)
[2017-03-18] MEDS: INSULIN REG, HUMAN 100 UNIT/ML 3 ML VIAL (PYX) SUBCUT PRN ×2 (13:08→17:06)
--- NOTE | 2017-03-18 14:15 | PDOC PROGRESS REPORT ---
Subjective Progress Note for:: 03/18/17 Subjective:: reason for visit: f/u gastroenteritis, hypovolemic shock, ETOH w/d syndrome hospital course: per other's notes - "JEYSON HELLER is a 56 year old male with a background history of type 2 diabetes, hypertension, hyperlipidemia, COPD , ongoing tobacco abuse, irritable bowel syndrome with a tendency to constipation. Overnight he developed the fairly sudden onset of explosive nausea vomiting and diarrhea. He had several episodes. He gradually became more somnolent and incoherent. Low blood pressure was measured at home and he was brought by EMS to the hospital. The EMS also documented hypotension with a BP of 70/40 and a pulse of 130, as well as pulse oximetry of 75%. In the emergency department he received 5 L of IV fluid after which his blood pressure improved. His white blood count 13.4 with 73 segs and 9 bands and 11% monos. Creatinine was 1.72 with a baseline one year ago of 0.87. Lactic acid was 3.2. Chest x-ray is verbally reported as stable COPD. He received 1 g of Invanz in the ED. Blood cultures and urine analysis have been ordered. He will now be admitted to the MICU for further evaluation and treatment. 03/15 - There was one recorded bowel movement yesterday. The patient denies any further nausea or vomiting. He has tolerated dinner yesterday and breakfast this morning. He is certainly much more awake and alert than he was yesterday on presentation. 03/16 -The patient again had only one bowel movement yesterday. Diarrhea has essentially resolved. Some residual nausea is not vomiting. He is eating poorly. Overnight he became restless and confused. There is history of alcohol use. 03/17 -Yesterday he became somnolent and altered. He responded to Narcan. Pain medications were reduced. Since then he has been more awake, alert, and is starting to eat and drink. He has had no further diarrhea. He denies nausea. He feels generally weak." i inherited his care Friday and he reports worsening diarrhea with frequent loose stools x2 over the last 6 hrs, worsening weakness and easy fatigueability. ROS: as above, denies chest pain, palpitations, fever/chills, abd pain, arthralgias, total 10 systems reviewed, remaining systems negative. Physical Exam Vital Signs: Temp Pulse Resp BP Pulse Ox 98.2 F 98 16 165/86 H 98 03/18/17 12:00 03/18/17 12:00 03/18/17 12:00 03/18/17 12:00 03/18/17 12:00 Intake & Output 03/17/17 03/18/17 03/19/17 06:59 06:59 06:59 Intake Total 4748 2937 Output Total 4074 4290 Balance 673 -763 Weight 58.6 kg 53.5 kg General appearance: PRESENT: mild distress, thin, well-developed Head exam: PRESENT: atraumatic, normocephalic Eye exam: PRESENT: EOMI. ABSENT: scleral icterus Teeth exam: PRESENT: poor dentation Neck exam: PRESENT: full ROM. ABSENT: tenderness Respiratory exam: PRESENT: clear to auscultation zaid. ABSENT: accessory muscle use, unlabored Cardiovascular exam: PRESENT: RRR. ABSENT: systolic murmur Pulses: PRESENT: normal carotid pulses, normal radial pulses Vascular exam: PRESENT: normal capillary refill GI/Abdominal exam: PRESENT: normal bowel sounds, soft. ABSENT: tenderness Extremities exam: ABSENT: calf tenderness, pedal edema Musculoskeletal exam: PRESENT: full ROM. ABSENT: tenderness Neurological exam: PRESENT: alert, awake, oriented to person, oriented to place , oriented to time, oriented to situation Psychiatric exam: PRESENT: normal mood. ABSENT: appropriate affect - flat Skin exam: PRESENT: warm. ABSENT: dry Results Laboratory Results: 03/17/17 03:24 03/18/17 06:25 03/18/17 06:25 Sodium 136.7 L Potassium 3.4 L Chloride 102 Carbon Dioxide 26 Anion Gap 9 BUN 6 L Creatinine 0.79 Est GFR ( Amer) > 60 Est GFR (Non-Af Amer) > 60 Glucose 207 H Calcium 8.5 03/16/17 03/16/17 03/17/17 21:50 21:50 03:24 Creatine Kinase 56 53 L CK-MB (CK-2) 0.35 Troponin I < 0.012 NT-Pro-B Natriuret Pep 1910 H 03/17/17 03/17/17 03/17/17 03:24 10:33 10:33 Creatine Kinase 40 L CK-MB (CK-2) 0.30 0.36 Troponin I < 0.012 < 0.012 NT-Pro-B Natriuret Pep Impressions: Chest X-Ray 03/16/17 00:00 IMPRESSION: No acute consolidations. There is some blunting of the costophrenic angles which I cannot exclude is tiny pleural effusions. Other findings as noted above Assessment & Plan - Diagnosis (1) Gastroenteritis Is this a current diagnosis for this admission?: YesPlan: improved but not back to baseline. (2) Hypotension Qualifiers: Hypotension type: other hypotension type Qualified Code(s): I95.89 - Other hypotension Is this a current diagnosis for this admission?: YesPlan: resolved (3) Alcohol withdrawal delirium Is this a current diagnosis for this admission?: YesPlan: improved but not back to baseline. add thiamine (4) COPD (chronic obstructive pulmonary disease) Qualifiers: COPD type: chronic bronchitis Qualified Code(s): J44.9 - Chronic obstructive pulmonary disease, unspecified Is this a current diagnosis for this admission?: Yes (5) DM2 (diabetes mellitus, type 2) Qualifiers: Diabetes mellitus complication status: without complication Is this a current diagnosis for this admission?: Yes (6) GERD (gastroesophageal reflux disease) Qualifiers: Esophagitis presence: esophagitis presence not specified Qualified Code(s): K21.9 - Gastro-esophageal reflux disease without esophagitis Is this a current diagnosis for this admission?: Yes - Time Time Spent with patient: 25-34 minutes Anticipated discharge: Home Within: within 24 hours - Plan Summary Plan Summary: stool studies negative, no clear indication for bacterial source so will remove the abx as confounder to his diarrhea. SL ivf's and monitor volume status. encourage activity anticipating d/c home in am
[2017-03-18] MEDS ORDERED: THIAMINE HCL 100 MG TABLET PO ONE (15:00)
[2017-03-18] MEDS: SIMVASTATIN 10 MG TABLET PO SCH (21:36)
[2017-03-18] MEDS: INSULIN GLARGINE,HUM.REC.ANLOG 300 UNIT/3 ML INSULN.PEN SUBCUT SCH (21:37)
[2017-03-19] MEDS: IPRATROPIUM/ALBUTEROL 0.5-2.5 MG/3 ML AMPUL NEB SCH ×2 (02:14→08:39)
[2017-03-19] MEDS: ENALAPRILAT DIHYDRATE INJ/PF 1.25 MG/1 ML SDV IV PRN (04:10)
[2017-03-19] MEDS: PENTOXIFYLLINE 400 MG TABLET.SA PO SCH (05:54)
[2017-03-19] MEDS: GABAPENTIN 300 MG CAPSULE PO SCH (05:54)
[2017-03-19] MEDS: ENOXAPARIN SODIUM INJ 40 MG/0.4 ML DISP.SYRIN SUBCUT SCH (09:17)
[2017-03-19] MEDS: LISINOPRIL 10 MG TABLET PO SCH (09:19)
[2017-03-19] MEDS: NICOTINE 21 MG/24 HR PATCH.TD24 TD SCH (09:19)
[2017-03-19] MEDS: CETIRIZINE 10 MG TABLET PO SCH (09:19)
[2017-03-19] MEDS: LANSOPRAZOLE 30 MG TAB.RAP.DR PO SCH (09:19)
[2017-03-19] MEDS: FLUTICASONE/SALMETEROL DISKUS 250-50 MCG/DOSE IH SCH (09:20)
[2017-03-19] MEDS: FLUTICASONE NASAL SPRAY 50 MCG/SPRY 120 SPRAY/16 GM NASL SCH (09:20)
[2017-03-19] MEDS ORDERED: THIAMINE HCL 100 MG TABLET PO SCH (10:00)
--- NOTE | 2017-03-19 10:52 | PDOC DISCHARGE SUMMARY ---
General - Admit/Disc Date/PCP Admission Date/Primary Care Provider: 03/14/17 09:05 Discharge Date: 03/19/17 - Discharge Diagnosis (1) Gastroenteritis Is this a current diagnosis for this admission?: YesSummary: improved, able to tolerate diet and stools slowing enough that he can manage at home. (2) Hypotension Is this a current diagnosis for this admission?: YesSummary: resolved. likely volume related. encouraged to stay hydrated with water rather than gallons of iced tea and pepsi (3) Alcohol withdrawal delirium Is this a current diagnosis for this admission?: YesSummary: resolved. back to baseline. not interested in cessation at this time. (4) COPD (chronic obstructive pulmonary disease) Is this a current diagnosis for this admission?: YesSummary: stable and back to baseline (5) DM2 (diabetes mellitus, type 2) Is this a current diagnosis for this admission?: Yes (6) GERD (gastroesophageal reflux disease) Is this a current diagnosis for this admission?: Yes - Additional Information Resuscitation Status: Full Code Discharge Diet: As Tolerated Discharge Activity: Activity As Tolerated Home Medications: Albuterol Sulfate [Proair HFA Inhalation Aerosol 8.5 gm MDI] 2 puff IH Q4HP PRN 03/14/17 Cetirizine HCl [Zyrtec 10 mg Tablet] 10 mg PO DAILY 03/14/17 Fluticasone/Salmeterol [Advair 250-50 Diskus 14 Dose/Diskus] 1 puff IH Q12 03/14 Gabapentin [Neurontin 300 mg Capsule] 300 mg PO Q8 03/14/17 Insulin Glargine,Hum.rec.anlog [Lantus Solostar] 19 units SQ QHS 03/14/17 Insulin Lispro [Humalog Insulin (Lispro) 100 unit/mL] 13 units SQ [id number] Insulin Lispro [Humalog Insulin (Lispro) 100 unit/mL] 19 units SQ BIDLS Lisinopril [Prinivil] 20 mg PO DAILY 03/14/17 Omeprazole 40 mg PO DAILY 03/14/17 Oxycodone HCl/Acetaminophen [Percocet 10-325 mg Tablet] 1 tab PO Q8 03/14/17 Pentoxifylline [Trental 400 mg Tablet.sa] 400 mg PO Q8 03/14/17 Ropinirole HCl 1.5 mg PO DAILY 03/14/17 Simvastatin [Zocor 20 mg Tablet] 20 mg PO QHS 03/14/17 Nystatin [Mycostatin Topical Powder 15 gm] 1 applic TP QIDP PRN #1 bottle History of Present Illness Patient complains of: N/V/D History of Present Illness: JEYSON HELLER is a 56 year old male with a background history of type 2 diabetes, hypertension, hyperlipidemia, COPD, ongoing tobacco abuse, irritable bowel syndrome with a tendency to constipation. Overnight he developed the fairly sudden onset of explosive nausea vomiting and diarrhea. He had several episodes. He gradually became more somnolent and incoherent. Low blood pressure was measured at home and he was brought by EMS to the hospital. Hospital Course Hospital Course: The EMS also documented hypotension with a BP of 70/40 and a pulse of 130, as well as pulse oximetry of 75%. In the emergency department he received 5 L of IV fluid after which his blood pressure improved. His white blood count 13.4 with 73 segs and 9 bands and 11% monos. Creatinine was 1.72 with a baseline one year ago of 0.87. Lactic acid was 3.2. Chest x-ray is verbally reported as stable COPD. He received 1 g of Invanz in the ED. Blood cultures and urine analysis have been ordered. He will now be admitted to the MICU for further evaluation and treatment. 03/15 - There was one recorded bowel movement yesterday. The patient denies any further nausea or vomiting. He has tolerated dinner yesterday and breakfast this morning. He is certainly much more awake and alert than he was yesterday on presentation. 03/16 -The patient again had only one bowel movement yesterday. Diarrhea has essentially resolved. Some residual nausea is not vomiting. He is eating poorly. Overnight he became restless and confused. There is history of alcohol use. 03/17 -Yesterday he became somnolent and altered. He responded to Narcan. Pain medications were reduced. Since then he has been more awake, alert, and is starting to eat and drink. He has had no further diarrhea. He denies nausea. He feels generally weak." i inherited his care Friday and he reports worsening diarrhea with frequent loose stools x2 over the last 6 hrs, worsening weakness and easy fatigueability. by this morning his fiance' has arrived and reports that he is much improved and they can manage his care at home, she is a [employer]. his BPs have responded to IVFs and in fact hypertensive now so he should resume his usual home regimen, they will continue to ck at home and contact his PCP if needed for further dose adjustment. He has an MRI scheduled for later today in evaluation of his chronic back pain and is very interested in keeping that appt, he would like to go home. Physical Exam Vital Signs: Temp Pulse Resp BP Pulse Ox 97.9 F 99 15 181/83 H 98 03/19/17 07:09 03/19/17 07:09 03/19/17 07:09 03/19/17 07:09 03/19/17 07:09 Intake & Output 03/18/17 03/19/17 03/20/17 06:59 06:59 06:59 Intake Total 2937 1570 Output Total 3700 6222 Balance -763 -972 Weight 53.5 kg 52.5 kg General appearance: PRESENT: no acute distress, thin Head exam: PRESENT: atraumatic, normocephalic Eye exam: ABSENT: conjunctival injection, scleral icterus Mouth exam: PRESENT: moist, neck supple Neck exam: ABSENT: tenderness, tracheal deviation Respiratory exam: PRESENT: clear to auscultation zaid, unlabored Cardiovascular exam: PRESENT: RRR. ABSENT: systolic murmur Pulses: PRESENT: normal radial pulses, normal dorsalis pedis pul GI/Abdominal exam: PRESENT: hyperactive bowel sounds, soft. ABSENT: tenderness Musculoskeletal exam: PRESENT: full ROM Neurological exam: PRESENT: alert, awake, oriented to person, oriented to place , oriented to time, oriented to situation Psychiatric exam: PRESENT: appropriate affect, normal mood Skin exam: PRESENT: warm. ABSENT: rash Results Laboratory Results: 03/17/17 03:24 03/18/17 06:25 03/16/17 03/16/17 03/17/17 21:50 21:50 03:24 Creatine Kinase 56 53 L CK-MB (CK-2) 0.35 Troponin I < 0.012 NT-Pro-B Natriuret Pep 1910 H 03/17/17 03/17/17 03/17/17 03:24 10:33 10:33 Creatine Kinase 40 L CK-MB (CK-2) 0.30 0.36 Troponin I < 0.012 < 0.012 NT-Pro-B Natriuret Pep Impressions: Chest X-Ray 03/16/17 00:00 IMPRESSION: No acute consolidations. There is some blunting of the costophrenic angles which I cannot exclude is tiny pleural effusions. Other findings as noted above Qualifiers PATEINT BEING DISCHARGED WITH ANY OF THE FOLLOWING DIAGNOSIS?: No VTE patient discharged on overlapping Therapy?: No Reason(s) for not prescribing Overlap Therapy:: Not indicated Plan Discharge Plan: f/u PCP as scheduled previously; return to the ED for recurrence or worsening symptomsa Time Spent: Greater than 30 Minutes
[2017-03-19 11:35] VITALS: BP 150/88
== END 2017-03-19 12:47 | disposition home or self-care (01) | DRG 392 ==
LOC: ER 05:06 → EH 09:05 → UNDOADMIN 09:45 → ICU 11:41 → 3S 15:00
PROVIDERS: ADMIT Internal Medicine; ATTEND Internal Medicine
DX: K52.9 Noninfective gastroenteritis and colitis, unspecified (principal); F10.231 Alcohol dependence with withdrawal delirium; E86.0 Dehydration; I95.9 Hypotension, unspecified; J44.9 Chronic obstructive pulmonary disease, unspecified; E11.9 Type 2 diabetes mellitus without complications; K21.9 Gastro-esophageal reflux disease without esophagitis; E78.5 Hyperlipidemia, unspecified; Z79.4 Long term (current) use of insulin; Z79.899 Other long term (current) drug therapy; F17.200 Nicotine dependence, unspecified, uncomplicated
CPT/HCPCS: 36415; 36600; 71010; 71020; 80048; 80053; 80307; 81001; 82550; 82553; 82803; 82962; 83605; 83690; 83735; 83880; 84484; 85025; 87040; 87045; 87205; 87493; 94640; 94667; 94668; 94799; 96361; 96365; 96367; 99291; J1335; J1650; J1815; J1956; J2060; J2310; J3475; J3480; J3490; J7030; J7120; J7620

== ENCOUNTER 2017-05-08 00:53 | Emergency (ER) | payer MEDICARE, MEDICAID ==
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
[2017-05-08] MEDS ORDERED: GLUCAGON,HUMAN RECOMB 1 MG INJ SUBCUT ONE (02:28)
[2017-05-08] MEDS ORDERED: GLUCAGON,HUMAN RECOMB 1 MG INJ IM ONE (02:29)
[2017-05-08 03:17] VITALS: BP 141/81
== END 2017-05-08 05:31 | disposition home or self-care (01) ==
LOC: ER 00:53
DX: T38.3X1A Poisoning by insulin and oral hypoglycemic [antidiabetic] drugs, accidental (unintentional), initial encounter (principal); E11.9 Type 2 diabetes mellitus without complications; L98.499 Non-pressure chronic ulcer of skin of other sites with unspecified severity; T23.022S Burn of unspecified degree of single left finger (nail) except thumb, sequela; X19.XXXS Contact with other heat and hot substances, sequela; I10 Essential (primary) hypertension; J44.9 Chronic obstructive pulmonary disease, unspecified
CPT/HCPCS: 99284; 96372; 82962; J1610

== ENCOUNTER 2017-06-09 01:21 | Emergency (ER) | payer MEDICARE, MEDICAID ==
[2017-06-09] MEDS ORDERED: DEXTROSE 50%-WATER 25 GM/50 ML DISP.SYRIN IV ONE (01:35)
[2017-06-09] MEDS ORDERED: NORMAL SALINE 1000 ML 1,000 ML IV ONE (01:44)
--- NOTE | 2017-06-09 01:45 | ER Document Report ---
ED General - General Stated Complaint: POSSIBLE OVER DOSE Time Seen by Provider: 06/09/17 01:39 Cannot obtain history due to: Uncooperative, Altered mental status Notes: Patient is a 56-year-old male with past medical history of insulin-dependent diabetes, alcoholism, oxycodone use who presents by EMS with altered mental status. Apparently his roommate found him altered, given honey with minimal response. EMS found initial BGL to be 24. An amp of dextrose was given he is transferred to the emergency department. At time of arrival patient is somewhat lethargic but is able to be stimulated with loud verbal stimulus. When he is awake he is combative, agitated, refuses to answer questions. TRAVEL OUTSIDE OF THE [place] IN LAST 30 DAYS: No - Related Data Allergies/Adverse Reactions: No Known Allergies Allergy (Unverified 06/13/12 00:21) Past Medical History - General Information source: Patient, Emergency Med Personnel Cannot obtain history due to: Uncooperative, Altered mental status - Social History Smoking Status: Current Every Day Smoker Frequency of alcohol use: Heavy Drug Abuse: None Lives with: Friend Family History: Reviewed & Not Pertinent - Past Medical History Cardiac Medical History: Reports: Hx Hypercholesterolemia, Hx Hypertension Pulmonary Medical History: Reports: Hx COPD Endocrine Medical History: Reports: Hx Diabetes Mellitus Type 2 Renal/ Medical History: Denies: Hx Peritoneal Dialysis GI Medical History: Reports: Hx Gastroesophageal Reflux Disease, Hx Irritable Bowel - constipation type Past Surgical History: Reports: Hx Orthopedic Surgery - Immunizations Immunizations up to date: Yes Hx Diphtheria, Pertussis, Tetanus Vaccination: Yes - unk Review of Systems - Review of Systems -: Yes ROS unobtainable due to patient's medical condition Physical Exam - Vital signs Notes: PHYSICAL EXAMINATION: GENERAL: Disheveled, cachectic, altered but in no acute distress HEAD: Atraumatic, normocephalic. EYES: Pupils equal round and reactive to light, extraocular movements intact, sclera anicteric, conjunctiva are normal. ENT: nares patent, oropharynx clear without exudates. Moderately dry mucous membranes. NECK: Normal range of motion, supple without lymphadenopathy LUNGS: Breath sounds clear to auscultation bilaterally and equal. No wheezes rales or rhonchi. HEART: Regular rate and rhythm without murmurs ABDOMEN: Soft, nontender, normoactive bowel sounds. No guarding, no rebound. No masses appreciated. EXTREMITIES: Normal range of motion, no pitting or edema. No cyanosis. NEUROLOGICAL: No focal neurological deficits. Moves all extremities spontaneously and on command. PSYCH: Somnolent but wakes to verbal stimulus. Will not answer questions appropriately. SKIN: Warm, Dry, normal turgor, no rashes or lesions noted. Course - Re-evaluation Re-evalutation: 06/09/17 01:44 Patient presents altered, combative, intermittently somnolent. He was apparently found by his roommate unresponsive, initial blood sugar by EMS was 24. Patient did receive an amp of dextrose with apparent normalization of his blood sugar but initial BGL here is 34. No additional amp of dextrose was administered. Patient is not able to provide any meaningful history, appears altered and likely intoxicated. Review of a hospitalization from February 2017 does show the patient has a history of chronic alcoholism and is currently on oxycodone for right shoulder pain. He did receive naloxone by EMS without any change in his mental status. Patient is in guarded condition as he has an undifferentiated altered mental status at this time with recurrent hypoglycemia. 0230-patient's laboratories do demonstrate hypokalemia as well as hypoglycemia however these labs were obtained prior to administration of dextrose. Magnesium and potassium will be administered. Will continue to recheck his blood glucose levels. 06/09/17 03:57 Patient has had resolution of his altered mental status, is now at his baseline per his significant other at the bedside. He has not had any further episodes of hypoglycemia, CT of the head and chest x-ray are clear. Spouse at the bedside does provide information demonstrating the patient likely took far too much Humalog which she has done in the past. I have instructed them to continue to check his blood sugars at home and ensure that he does not have any further dips in his glucose level. At this time will discharge with return precautions and follow-up recommendations. Verbal discharge instructions given a the bedside and opportunity for questions given. Medication warnings reviewed. Patient is in agreement with this plan and has verbalized understanding of return precautions and the need for primary care follow-up in the next 24-72 hours. - Laboratory Result Diagrams: 06/09/17 01:30 06/09/17 01:30 Laboratory results interpreted by me: 06/09/17 06/09/17 06/09/17 01:30 01:30 02:55 RBC 4.29 L Hgb 13.0 L Hct 37.5 L RDW 14.7 H Sodium 130.9 L Potassium 2.8 L* Chloride 93 L Glucose 32 L* Urine Glucose (UA) 50 H Urine Blood SMALL H - Diagnostic Test Radiology reviewed: Image reviewed, Reports reviewed Radiology results interpreted by me: 06/09/17 04:00 CT head: No acute intracranial bleed Chest x-ray: No acute infiltrate or pneumothorax - EKG Interpretation by Me Additional EKG results interpreted by me: 06/09/17 04:00 Sinus rhythm. Rate 86. No ST elevations or depressions. QTC is 479. Critical Care Note - Critical Care Note Total time excluding time spent on procedures (mins): 37 Comments: Critical care time spent obtaining history from patient or surrogate, discussions with consultants, development of treatment plan with patient or surrogate, evaluation of patient's response to treatment, examination of patient , ordering and performing treatments and interventions, ordering and review of laboratory studies, re-evaluation of patient's condition, ordering and review of radiographic studies and review of old charts Discharge - Discharge Clinical Impression: Hypoglycemia, Hypoglycemic encephalopathy COPD (chronic obstructive pulmonary disease) Qualifiers: COPD type: unspecified COPD Qualified Code(s): J44.9 - Chronic obstructive pulmonary disease, unspecified Condition: Stable Disposition: HOME, SELF-CARE Additional Instructions: Please be sure to check your blood sugar regularly at home after leaving here in the emergency department to ensure that your blood sugar has not decreased. Return for any further episodes of confusion, low blood sugar, vomiting, or any other symptoms that are worrisome to you.
[2017-06-09] MEDS ORDERED: THIAMINE HCL 500 MG in NORMAL SALINE 250 ML IV PRN (01:46)
[2017-06-09 01:54] LABS: ABSOLUTE BASOPHILS # (AUTO) 0.1 10^3/uL (0.0-0.2); ABSOLUTE EOSINOPHILS # (AUTO) 0.3 10^3/uL (0.0-0.6); ABSOLUTE LYMPHOCYTES (AUTO) 2.1 10^3/uL (0.5-4.7); ABSOLUTE MONOCYTES (AUTO) 0.6 10^3/uL (0.1-1.4); BASOPHILS % (AUTO) 0.9 % (0-2); HEMATOCRIT 37.5 % (37.9-51.0); HGB HCT DIFFERENCE 1.5; LYMPHOCYTES % (AUTO) 23.3 % (13-45); MEAN CORPUSCULAR HEMOGLOBIN 30.3 pg (27.0-33.4); MEAN CORPUSCULAR HGB CONC 34.7 g/dL (32.0-36.0); MEAN CORPUSCULAR VOLUME 87 fl (80-97); MONOCYTES % (AUTO) 6.2 % (3-13); RED BLOOD COUNT 4.29 10^6/uL (4.35-5.55); RED CELL DISTRIBUTION WIDTH 14.7 % (11.5-14.0); SEGMENTED NEUTROPHILS % (AUTO) 66.6 % (42-78)
[2017-06-09 02:09] LABS: ALANINE AMINOTRANSFERASE 37 U/L (21-72); ALBUMIN 3.8 g/dL (3.5-5.0); ALKALINE PHOSPHATASE 91 U/L (38-126); ANION GAP 11 (5-19); ASPARTATE AMINO TRANSFERASE 36 U/L (17-59); BILIRUBIN,DIRECT 0.4 mg/dL (0.0-0.4); BILIRUBIN,TOTAL 0.4 mg/dL (0.2-1.3); BLOOD UREA NITROGEN 8 mg/dL (7-20); CALCIUM 8.7 mg/dL (8.4-10.2); CARBON DIOXIDE 27 mmol/L (22-30); CHLORIDE 93 mmol/L (98-107); CREATININE RESULT 0.76 mg/dL (0.52-1.25); SODIUM 130.9 mmol/L (137-145); TOTAL PROTEIN 6.8 g/dL (6.3-8.2)
[2017-06-09 02:23] LABS: ALCOHOL < 10 mg/dL (NONE DETECTED)
[2017-06-09 02:25] LABS: GLUCOSE 32 mg/dL (75-110); POTASSIUM 2.8 mmol/L (3.6-5.0)
[2017-06-09] MEDS ORDERED: THIAMINE HCL INJ 200 MG/2 ML VIAL ONE ×2 (02:30→02:49)
[2017-06-09] MEDS ORDERED: POTASSIUM CHLORIDE 10 MEQ TABLET.SA PO ONE (02:42)
[2017-06-09] MEDS ORDERED: MAGNESIUM OXIDE 400 MG TABLET PO ONE (02:42)
[2017-06-09 03:27] LABS: APPEARANCE,URINE CLEAR; BILIRUBIN,URINE NEGATIVE (NEGATIVE); GLUCOSE, URINE 50 mg/dL (NEGATIVE); KETONES,URINE NEGATIVE (NEGATIVE); LEUKOCYTE ESTERASE,URINE NEGATIVE (NEGATIVE); NITRITE,URINE NEGATIVE (NEGATIVE); PROTEIN,URINE NEGATIVE (NEGATIVE); URINE SPECIFIC GRAVITY 1.004; UROBILINOGEN,URINE NEGATIVE mg/dL (<2.0)
--- NOTE | 2017-06-09 03:28 | RADIOLOGY REPORT (SQ) ---
EXAM DESCRIPTION: CT HEAD WITHOUT COMPLETED DATE/TIME: 06/09/2017 3:04 am REASON FOR STUDY: ams COMPARISON: MRI, 09/27/2013. TECHNIQUE: Axial images acquired through the brain without intravenous contrast. Images reviewed wi th bone, brain and subdural windows. Images stored on PACS. All CT scanners at this facility use dose modulation, iterative reconstruction, and/or weight based d osing when appropriate to reduce radiation dose to as low as reasonably achievable (ALARA). [facility]: Dose Right [facility]: CareDose [facility]: Dose Right [facility]: Teradose 4D [facility]: [employer] RADIATION DOSE: Up-to-date CT equipment and radiation dose reduction techniques were employed. CTDIv ol: 64.6 mGy. DLP: 1163 mGy-cm. mGy. LIMITATIONS: None. FINDINGS: VENTRICLES: Normal size and contour. CEREBRUM: No masses. No hemorrhage. No midline shift. Normal matthews/white matter differentiation. N o evidence for acute infarction. CEREBELLUM: No masses. No hemorrhage. No alteration of density. No evidence for acute infarction. EXTRAAXIAL SPACES: No fluid collections. No masses. ORBITS AND GLOBE: No intra- or extraconal masses. Normal contour of globe without masses. CALVARIUM: No fracture. PARANASAL SINUSES: No fluid or mucosal thickening. Mild deformity of the right zygomatic arch sugges ts prior injury. SOFT TISSUES: No mass or hematoma. OTHER: No other significant finding. IMPRESSION: No acute findings. TECHNICAL DOCUMENTATION: JOB ID: [id number] Quality ID # [id number]: Final reports with documentation of one or more dose reduction techniques (e.g., Au tomated exposure control, adjustment of the mA and/or kV according to patient size, use of iterative reconstruction technique) 2010 [employer]- All Rights Reserved
--- NOTE | 2017-06-09 03:33 | RADIOLOGY REPORT (SQ) ---
EXAM DESCRIPTION: CHEST SINGLE VIEW COMPLETED DATE/TIME: 06/09/2017 3:14 am REASON FOR STUDY: cough, ams COMPARISON: 03/16/2017. EXAM PARAMETERS: NUMBER OF VIEWS: One view. TECHNIQUE: Single frontal radiographic view of the chest acquired. RADIATION DOSE: NA LIMITATIONS: None. FINDINGS: LUNGS AND PLEURA: Small scattered atelectasis or scar and mild chronic interstitial markin gs, left more than right. Possible small old granulomatous disease. Mild left hemidiaphragmatic poncho vation, chronic. MEDIASTINUM AND HILAR STRUCTURES: No masses. Contour normal. HEART AND VASCULAR STRUCTURES: Heart normal in size. Normal vasculature. BONES: No acute findings. HARDWARE: None in the chest. OTHER: No other significant finding. IMPRESSION: No acute cardiopulmonary findings. Mild chronic interstitial lung disease. TECHNICAL DOCUMENTATION: JOB ID: [id number]
[2017-06-09] MEDS ORDERED: DEXTROSE 5%-NORMAL SALINE 1,000 ML IV ONE (03:34)
[2017-06-09 03:36] LABS: URINE BARBITURATES SCREEN NEGATIVE; URINE METHADONE SCREEN NEGATIVE; URINE OPIATES LOW NEGATIVE; URINE PHENCYCLIDINE SCREEN NEGATIVE
[2017-06-09 05:10] VITALS: BP 153/83
--- NOTE | 2017-06-09 08:41 | EKG REPORT ---
SEVERITY:- BORDERLINE ECG - SINUS RHYTHM BORDERLINE PROLONGED QT INTERVAL : Confirmed by: Natalia Agrawal 09-Jun-2017 08:41:24
== END 2017-06-09 04:45 | disposition home or self-care (01) ==
LOC: ER 01:21
DX: E11.649 Type 2 diabetes mellitus with hypoglycemia without coma (principal); G93.41 Metabolic encephalopathy; J44.9 Chronic obstructive pulmonary disease, unspecified; R41.82 Altered mental status, unspecified; F10.20 Alcohol dependence, uncomplicated; F17.200 Nicotine dependence, unspecified, uncomplicated; I10 Essential (primary) hypertension; E78.00 Pure hypercholesterolemia, unspecified; Z79.4 Long term (current) use of insulin
CPT/HCPCS: 93005; 99291; 96361; 96374; 36415; 82962; 80307 ×2; 85025; 80053; 81001; 84484; 71010; 70450; 93010; A9270 ×2; J3490; J3411; J7030; J7050

== ENCOUNTER 2018-04-18 12:09 | Inpatient (IN) | payer MEDICARE, MEDICAID ==
[2018-04-18] MEDS ORDERED: RINGERS SOLUTION,LACTATED 1,000 ML IV ONE (12:20)
[2018-04-18] MEDS ORDERED: NORMAL SALINE 1000 ML 1,000 ML IV ONE (12:31)
[2018-04-18 12:39] LABS: ABSOLUTE LYMPHOCYTES (AUTO) 0.7 10^3/uL (0.5-4.7); ABSOLUTE MONOCYTES (AUTO) 0.9 10^3/uL (0.1-1.4); ABSOLUTE NEUT (AUTO) 11.1 10^3/uL (1.7-8.2); BASOPHILS % (AUTO) 0.2 % (0-2); EOSINOPHILS % (AUTO) 0.1 % (0-6); HEMOGLOBIN 12.1 g/dL (13.5-17.0); LYMPHOCYTES % (AUTO) 5.4 % (13-45); MEAN CORPUSCULAR HEMOGLOBIN 29.8 pg (27.0-33.4); MEAN CORPUSCULAR HGB CONC 33.7 g/dL (32.0-36.0); MEAN CORPUSCULAR VOLUME 89 fl (80-97); MONOCYTES % (AUTO) 7.3 % (3-13); PLATELET COUNT 241 10^3/uL (150-450); RED BLOOD COUNT 4.07 10^6/uL (4.35-5.55); RED CELL DISTRIBUTION WIDTH 16.3 % (11.5-14.0); TOTAL CELLS COUNTED % (AUTO) 100 %; WHITE BLOOD COUNT 12.7 10^3/uL (4.0-10.5)
[2018-04-18 12:40] LABS: VENOUS BLOOD BASE EXCESS 0.8 mmol/L; VENOUS BLOOD HCO3 26.6 mmol/L (20-32); VENOUS BLOOD PCO2 46.7 mmHg (35-63); VENOUS BLOOD PH 7.37 (7.30-7.42)
[2018-04-18 12:47] LABS: INTERNATIONAL RATION (INR) 1.09; PROTHROMBIN TIME 14.7 SEC (11.4-15.4)
[2018-04-18] MEDS ORDERED: NORMAL SALINE 1000 ML 1,000 ML IV PRN (12:52)
--- NOTE | 2018-04-18 12:56 | RADIOLOGY REPORT (SQ) ---
EXAM DESCRIPTION: CHEST SINGLE VIEW COMPLETED DATE/TIME: 04/18/2018 12:44 pm REASON FOR STUDY: hypotensive COMPARISON: 06/09/2017 EXAM PARAMETERS: NUMBER OF VIEWS: One view. TECHNIQUE: Single frontal radiographic view of the chest acquired. RADIATION DOSE: NA LIMITATIONS: None. FINDINGS: LUNGS AND PLEURA: Infiltrate versus poorly defined mass in the left upper lobe. Right lelo g is clear. MEDIASTINUM AND HILAR STRUCTURES: No masses. Contour normal. HEART AND VASCULAR STRUCTURES: Heart normal in size. Normal vasculature. BONES: No acute findings. HARDWARE: None in the chest. OTHER: No other significant finding. IMPRESSION: Mass versus infiltrate in the left upper lobe. TECHNICAL DOCUMENTATION: JOB ID: [id number] [employer]- All Rights Reserved Reading location - IP/workstation name: [email or web address]
[2018-04-18 12:59] LABS: ALANINE AMINOTRANSFERASE 26 U/L (21-72); ALBUMIN 3.1 g/dL (3.5-5.0); ALKALINE PHOSPHATASE 72 U/L (38-126); ANION GAP 10 (5-19); ASPARTATE AMINO TRANSFERASE 18 U/L (17-59); BILIRUBIN,DIRECT 0.4 mg/dL (0.0-0.4); BILIRUBIN,TOTAL 0.5 mg/dL (0.2-1.3); BLOOD UREA NITROGEN 29 mg/dL (7-20); CARBON DIOXIDE 29 mmol/L (22-30); CHLORIDE 98 mmol/L (98-107); CREATINE KINASE 81 U/L (55-170); GLUCOSE 246 mg/dL (75-110); LIPASE 11.3 U/L (23-300); POTASSIUM 3.8 mmol/L (3.6-5.0); SODIUM 136.5 mmol/L (137-145); TOTAL PROTEIN 5.8 g/dL (6.3-8.2)
[2018-04-18] MEDS ORDERED: MAGNESIUM SULFATE/D5W 1 GM/100 ML RTUPB IV ONE (13:02)
[2018-04-18 13:10] LABS: NT PRO BNP 690 pg/mL (5-900)
[2018-04-18 13:12] LABS: TROPONIN I < 0.012 ng/mL
--- NOTE | 2018-04-18 14:05 | RADIOLOGY REPORT (SQ) ---
EXAM DESCRIPTION: CTA CHEST COMPLETED DATE/TIME: 04/18/2018 1:47 pm REASON FOR STUDY: hypotension massvinfection on cxr COMPARISON: Chest radiograph TECHNIQUE: CT scan of the chest performed using helical scanning technique with dynamic intravenous contrast injection. Images reviewed with lung, soft tissue and bone windows. Reconstructed coronal and sagittal MPR images reviewed. Additional 3 dimensional post-processing performed to develop Maximal Intensity Projection images ([place] P). All images stored on PACS. All CT scanners at this facility use dose modulation, iterative reconstruction, and/or weight based d osing when appropriate to reduce radiation dose to as low as reasonably achievable (ALARA). [facility]: Dose Right [facility]: CareDose [facility]: Dose Right [facility]: Teradose 4D [facility]: [employer] CONTRAST TYPE AND DOSE: contrast/concentration: Isovue 370.00 mg/ml; Total Contrast Delivered: 62.0 ml; Total Saline Delivered: 80.0 ml Contrast bolus adequate for pulmonary arteries and aorta. RENAL FUNCTION: Creatinine 1.2 none RADIATION DOSE: CT Rad equipment meets quality standard of care and radiation dose reduction techniq ues were employed. CTDIvol: 14.3 - 16.5 mGy. DLP: 651 mGy-cm. . LIMITATIONS: None. FINDINGS: LUNGS AND PLEURA: Extensive dense left upper lobe infiltrate with possible cavitation. Un derlying mass is in the differential. Extensive bullous emphysema. AORTA AND GREAT VESSELS: No aneurysm. Contrast bolus not optimized for the aorta. HEART: No pericardial effusion. No significant coronary artery calcifications. PULMONARY ARTERIES: No emboli visualized in the main pulmonary arteries or the segmental branches. HILAR AND MEDIASTINAL STRUCTURES: No identified masses or abnormal nodes. HARDWARE: None in the chest. UPPER ABDOMEN: No significant findings. Limited exam. THYROID AND OTHER SOFT TISSUES: No masses. No adenopathy. BONES: No acute or significant finding. 3D MIPS: Confirm above findings. OTHER: No other significant finding. IMPRESSION: Extensive left upper lobe infiltrate with possible cavitation. Underlying mass is still in the differential. No hilar or mediastinal masses. COMMENT: Quality ID # [id number]: Final reports with documentation of one or more dose reduction techniques (e.g., Automated exposure control, adjustment of the mA and/or kV according to patient size, use of iterative reconstruction technique) TECHNICAL DOCUMENTATION: JOB ID: [id number]- All Rights Reserved Reading location - IP/workstation name: [email or web address]
--- NOTE | 2018-04-18 14:27 | ER Document Report ---
ED General - General Chief Complaint: Blood Pressure Problem Stated Complaint: DIZZINESS Time Seen by Provider: 04/18/18 12:57 TRAVEL OUTSIDE OF THE [place] IN LAST 30 DAYS: No - HPI Patient complains to provider of: Dizziness low blood pressure Notes: Patient coming in for dizziness low blood pressure states fevers chills and cough with productive sputum ongoing for the last few weeks patient states he was on antibiotics approximately 2 weeks ago for respiratory infection. Patient otherwise states he does have blood pressure issues did not take his blood pressure medication this morning has had multiple bouts of diarrhea. Patient denies any other sick contacts denies any recent travel. Patient upon triage was found to be hypotensive of both arms with blood pressure in the 70s. Patient states he has been drinking plenty of fluids otherwise with a blood pressure in the 70s is mentating ANO 3 upon my evaluation does not seem to be symptomatic. Denies any chest pain abdominal pain - Related Data Allergies/Adverse Reactions: No Known Allergies Allergy (Verified 04/18/18 12:13) Past Medical History - Social History Smoking Status: Current Every Day Smoker Frequency of alcohol use: None Drug Abuse: None Family History: Reviewed & Not Pertinent Patient has suicidal ideation: No Patient has homicidal ideation: No - Past Medical History Cardiac Medical History: Reports: Hx Hypercholesterolemia, Hx Hypertension Pulmonary Medical History: Reports: Hx COPD Endocrine Medical History: Reports: Hx Diabetes Mellitus Type 2 Renal/ Medical History: Denies: Hx Peritoneal Dialysis GI Medical History: Reports: Hx Gastroesophageal Reflux Disease, Hx Irritable Bowel - constipation type Past Surgical History: Reports: Hx Orthopedic Surgery - Immunizations Immunizations up to date: Yes Hx Diphtheria, Pertussis, Tetanus Vaccination: Yes - unk Review of Systems - Review of Systems Constitutional: Other - Weakness dizziness fatigue fevers cough EENT: No symptoms reported Cardiovascular: No symptoms reported Respiratory: No symptoms reported Gastrointestinal: No symptoms reported Genitourinary: No symptoms reported Male Genitourinary: No symptoms reported Musculoskeletal: No symptoms reported Skin: No symptoms reported Hematologic/Lymphatic: No symptoms reported Neurological/Psychological: No symptoms reported Physical Exam - Vital signs Vitals: Pulse Ox 96 04/18/18 12:15 Interpretation: Hypotensive - General General appearance: Appears well, Alert - HEENT Head: Normocephalic, Atraumatic Eyes: Normal Pupils: PERRL - Respiratory Respiratory status: No respiratory distress Chest status: Nontender Breath sounds: Normal Chest palpation: Normal - Cardiovascular Rhythm: Regular Heart sounds: Normal auscultation Murmur: No - Abdominal Inspection: Normal Distension: No distension Bowel sounds: Normal Tenderness: Nontender Organomegaly: No organomegaly - Back Back: Normal, Nontender - Extremities General upper extremity: Normal inspection, Nontender, Normal color, Normal ROM , Normal temperature General lower extremity: Normal inspection, Nontender, Normal color, Normal ROM , Normal temperature, Normal weight bearing. No: Shi's sign - Neurological Neuro grossly intact: Yes Cognition: Normal Orientation: AAOx4 Artem Coma Scale Eye Opening: Spontaneous [place] Coma Scale Verbal: Oriented [place] Coma Scale Motor: Obeys Commands Artem Coma Scale Total: 15 Speech: Normal Motor strength normal: LUE, RUE, LLE, RLE Sensory: Normal - Psychological Associated symptoms: Normal affect, Normal mood - Skin Skin Temperature: Warm Skin Moisture: Dry Skin Color: Normal Course - Re-evaluation Re-evalutation: 04/18/18 16:46 Patient was given IV fluid boluses with improvement of his blood pressure however did increase greatly to currently blood pressure 150 systolic. More likely this is transient drop. Review of previous records that showed history of gastroenteritis with transient drops in his blood pressure would good response to IV fluids. Patient is a chest x-ray showed infiltrate versus mass. Did discuss with the radiologist agrees CT scan with IV contrast however did opt for CTA is that the patient was hypotensive to make sure patient does not have any other he is at low risk. CT scan showed a cavitary lesion left upper lobe with possible mass still. Patient upon further questioning does state he has a history of of TB infection department 10 years ago was compliant with his medications. Reviewed patient's previous chest x-rays not show any other cavitary lesions or masses. Tuberculosis is concerned discussed with hospitalist patient will be admitted for further evaluation and workup. Patient was then at that time placed and are negative pressure room. - Vital Signs Vital signs: Temp Pulse Resp BP Pulse Ox 98.3 F 84 12 162/82 H 98 04/18/18 12:16 04/18/18 12:16 04/18/18 16:20 04/18/18 16:20 04/18/18 16:20 - Laboratory Result Diagrams: 04/18/18 12:23 04/18/18 12:23 Laboratory results interpreted by me: 04/18/18 04/18/18 04/18/18 12:23 12:23 14:53 WBC 12.7 H RBC 4.07 L Hgb 12.1 L Hct 36.0 L RDW 16.3 H Seg Neutrophils % 87.0 H Lymphocytes % 5.4 L Absolute Neutrophils 11.1 H Sodium 136.5 L BUN 29 H Creatinine 1.29 H Est GFR (Non-Af Amer) 57 L Glucose 246 H Calcium 8.0 L Magnesium 1.3 L Total Protein 5.8 L Albumin 3.1 L Lipase 11.3 L Urine Glucose (UA) 150 H Critical Care Note - Critical Care Note Total time excluding time spent on procedures (mins): 35 Comments: Multiple evaluations for patient with hypotension Discharge - Discharge Clinical Impression: Nausea, vomiting and diarrhea, Left upper lobe cavitary lesion Condition: Good Disposition: ADMITTED INPATIENT Admitting Provider: Chaseist Silverio [facility] Unit Admitted: JUANITO
[2018-04-18] MEDS ORDERED: LEVOFLOXACIN 500 MG/D5W RTU 500 MG/100 ML RTUPB IV ONE (14:31)
[2018-04-18 15:16] LABS: APPEARANCE,URINE CLEAR; BILIRUBIN,URINE NEGATIVE (NEGATIVE); COLOR,URINE YELLOW; GLUCOSE, URINE 150 mg/dL (NEGATIVE); KETONES,URINE NEGATIVE (NEGATIVE); LEUKOCYTE ESTERASE,URINE NEGATIVE (NEGATIVE); NITRITE,URINE NEGATIVE (NEGATIVE); PROTEIN,URINE NEGATIVE (NEGATIVE); URINE SPECIFIC GRAVITY 1.014; UROBILINOGEN,URINE NEGATIVE mg/dL (<2.0)
[2018-04-18 15:26] LABS: URINE AMPHETAMINES SCREEN NEGATIVE; URINE BARBITURATES SCREEN NEGATIVE; URINE BENZODIAZEPINES SCREEN NEGATIVE; URINE COCAINE SCREEN NEGATIVE; URINE MARIJUANA (THC) SCREEN NEGATIVE; URINE METHADONE SCREEN NEGATIVE; URINE PHENCYCLIDINE SCREEN NEGATIVE
[2018-04-18] MEDS: MAGNESIUM SULFATE/D5W 1 GM/100 ML RTUPB IV SCH ×2 (15:43→15:44)
[2018-04-18] MEDS ORDERED: ALBUTEROL SULFATE 0.083% NEB 2.5 MG/3 ML AMPUL NEB PRN (15:56)
[2018-04-18] MEDS ORDERED: ONDANSETRON 4 MG TAB.RAPDIS PO PRN (15:56)
[2018-04-18] MEDS ORDERED: ONDANSETRON HCL INJ/PF 4 MG/2 ML SDV IV PRN (15:56)
[2018-04-18] MEDS ORDERED: ACETAMINOPHEN 325 MG TABLET PO PRN (15:56)
[2018-04-18] MEDS ORDERED: (PENDING PHARMACY ID) (Oxycodone Hcl/Acetaminophen [Percocet 10-325 Mg Tablet] 1 TAB) PO PRN (16:00)
[2018-04-18] MEDS ORDERED: GLUCAGON,HUMAN RECOMB 1 MG INJ IM PRN (16:02)
[2018-04-18] MEDS ORDERED: DEXTROSE 40% GEL 15 GM TUBE PO PRN (16:02)
[2018-04-18] MEDS ORDERED: DEXTROSE 50%-WATER 25 GM/50 ML DISP.SYRIN IV PRN ×2 (16:02)
--- NOTE | 2018-04-18 16:12 | PDOC H&P ---
History of Present Illness Admission Date/PCP: 04/18/18 CYNTHIA LÓPEZ Patient complains of: Cough, weakness, chills History of Present Illness: JEYSON HELLER is a 57 year old male with past medical history of Tuberculosis more than 10 years ago Tobacco dependence 1 pack per day 50 years Prior history of alcohol withdrawal delirium COPD Type 2 diabetes, insulin-dependent Hypertension Hyperlipidemia IBS GERD He presented to the hospital on April 18 complaining of generalized weakness lightheadedness chills sweats cough and shortness of breath. His girlfriend checked his blood pressure at home and noted it to be low. The patient drank some salt water and subsequently became nauseated and threw up. In the emergency room his initial systolic blood pressure was in the 70s. He was found to have leukocytosis. He was treated with IV fluids. He was also found to have hypomagnesemia and a left upper lobe cavitary lesion on x-ray which was further defined by a CAT scan of the chest. The patient is currently on disability. He denies any significant recent weight loss. No hemoptysis. He recently completed a course of antibiotics which were prescribed by his primary care physician for similar symptoms. Past Medical History Cardiac Medical History: Reports: Hyperlipidema, Hypertension Pulmonary Medical History: Reports: Chronic Obstructive Pulmonary Disease (COPD) Endocrine Medical History: Reports: Diabetes Mellitus Type 2 GI Medical History: Reports: Gastroesophageal Reflux Disease Psychiatric Medical History: Reports: Tobacco Dependency Infectious Medical History: Reports: Other Past Surgical History Past Surgical History: Reports: Orthopedic Surgery Social History Information Source: Patient Smoking Status: Current Every Day Smoker Frequency of Alcohol Use: Occasional Hx Recreational Drug Use: No Family History Family History: DM, Hypertension Parental Family History Reviewed: Yes Children Family History Reviewed: Yes Sibling(s) Family History Reviewed.: Yes Medication/Allergy Home Medications: Albuterol Sulfate [Proair HFA Inhalation Aerosol 8.5 gm MDI] 2 puff IH Q4HP PRN 03/14/17 Cetirizine HCl [Zyrtec 10 mg Tablet] 10 mg PO DAILY 03/14/17 Fluticasone/Salmeterol [Advair 250-50 Diskus 14 Dose/Diskus] 1 puff IH Q12 03/14 Gabapentin [Neurontin 300 mg Capsule] 300 mg PO Q8 03/14/17 Insulin Glargine,Hum.rec.anlog [Lantus Solostar] 19 units SQ QHS 03/14/17 Insulin Lispro [Humalog Insulin (Lispro) 100 unit/mL] 13 units SQ [id number] Insulin Lispro [Humalog Insulin (Lispro) 100 unit/mL] 19 units SQ BIDLS Lisinopril [Prinivil] 20 mg PO DAILY 03/14/17 Omeprazole 40 mg PO DAILY 03/14/17 Oxycodone HCl/Acetaminophen [Percocet 10-325 mg Tablet] 1 tab PO Q8 03/14/17 Pentoxifylline [Trental 400 mg Tablet.sa] 400 mg PO Q8 03/14/17 Ropinirole HCl 1.5 mg PO DAILY 03/14/17 Simvastatin [Zocor 20 mg Tablet] 20 mg PO QHS 03/14/17 Nystatin [Mycostatin Topical Powder 15 gm] 1 applic TP QIDP PRN #1 bottle Allergies/Adverse Reactions: No Known Allergies Allergy (Verified 04/18/18 12:13) Review of Systems Constitutional: PRESENT: anorexia, chills, fever(s), night sweats, weakness Eyes: ABSENT: visual disturbances Ears: ABSENT: hearing changes Nose, Mouth, and Throat: ABSENT: sore throat Cardiovascular: ABSENT: chest pain, edema Respiratory: PRESENT: cough, dyspnea. ABSENT: hemoptysis Gastrointestinal: PRESENT: vomiting. ABSENT: abdominal pain, diarrhea, hematochezia Genitourinary: ABSENT: dysuria Musculoskeletal: ABSENT: joint swelling Integumentary: ABSENT: pruritus Neurological: ABSENT: focal weakness Psychiatric: ABSENT: hallucinations Endocrine: ABSENT: heat intolerance Hematologic/Lymphatic: ABSENT: easy bleeding Allergic/Immunologic: ABSENT: seasonal rhinorrhea Physical Exam Vital Signs: Temp Pulse Resp BP Pulse Ox 98.3 F 84 11 L 165/80 H 96 04/18/18 12:16 04/18/18 12:16 04/18/18 15:21 04/18/18 15:21 04/18/18 15:21 Intake & Output 04/17/18 04/18/18 04/19/18 06:59 06:59 06:59 Weight 51.8 kg General appearance: PRESENT: no acute distress Head exam: PRESENT: normocephalic Eye exam: ABSENT: scleral icterus Ear exam: PRESENT: normal external ear exam Mouth exam: PRESENT: moist Neck exam: ABSENT: lymphadenopathy, tracheal deviation Respiratory exam: PRESENT: symmetrical, unlabored. ABSENT: crackles, wheezes Cardiovascular exam: PRESENT: RRR GI/Abdominal exam: PRESENT: normal bowel sounds, soft. ABSENT: tenderness Rectal exam: PRESENT: deferred Gentrourinary exam: ABSENT: indwelling catheter Extremities exam: ABSENT: pedal edema Neurological exam: PRESENT: alert, awake, oriented to person, oriented to place , oriented to time, oriented to situation Psychiatric exam: PRESENT: appropriate affect Skin exam: ABSENT: petechiae Results Laboratory Results: 04/18/18 12:23 04/18/18 12:23 04/18/18 04/18/18 04/18/18 12:23 12:23 12:23 WBC 12.7 H RBC 4.07 L Hgb 12.1 L Hct 36.0 L MCV 89 MCH 29.8 MCHC 33.7 RDW 16.3 H Plt Count 241 Seg Neutrophils % 87.0 H Lymphocytes % 5.4 L Monocytes % 7.3 Eosinophils % 0.1 Basophils % 0.2 Absolute Neutrophils 11.1 H Absolute Lymphocytes 0.7 Absolute Monocytes 0.9 Absolute Eosinophils 0.0 Absolute Basophils 0.0 VBG pH VBG pCO2 VBG HCO3 VBG Base Excess Sodium 136.5 L Potassium 3.8 Chloride 98 Carbon Dioxide 29 Anion Gap 10 BUN 29 H Creatinine 1.29 H Est GFR ( Amer) > 60 Est GFR (Non-Af Amer) 57 L Glucose 246 H Lactic Acid 1.3 Calcium 8.0 L Magnesium 1.3 L Total Bilirubin 0.5 AST 18 ALT 26 Alkaline Phosphatase 72 Total Protein 5.8 L Albumin 3.1 L Lipase 11.3 L Urine Color Urine Appearance Urine pH Ur Specific [place] Urine Protein Urine Glucose (UA) Urine Ketones Urine Blood Urine Nitrite Ur Leukocyte Esterase Urine WBC (Auto) Urine RBC (Auto) 04/18/18 04/18/18 12:23 14:53 WBC RBC Hgb Hct MCV MCH MCHC RDW Plt Count Seg Neutrophils % Lymphocytes % Monocytes % Eosinophils % Basophils % Absolute Neutrophils Absolute Lymphocytes Absolute Monocytes Absolute Eosinophils Absolute Basophils VBG pH 7.37 VBG pCO2 46.7 VBG HCO3 26.6 VBG Base Excess 0.8 Sodium Potassium Chloride Carbon Dioxide Anion Gap BUN Creatinine Est GFR ( Amer) Est GFR (Non-Af Amer) Glucose Lactic Acid Calcium Magnesium Total Bilirubin AST ALT Alkaline Phosphatase Total Protein Albumin Lipase Urine Color YELLOW Urine Appearance CLEAR Urine pH 6.0 Ur Specific [place] 1.014 Urine Protein NEGATIVE Urine Glucose (UA) 150 H Urine Ketones NEGATIVE Urine Blood NEGATIVE Urine Nitrite NEGATIVE Ur Leukocyte Esterase NEGATIVE Urine WBC (Auto) 0 Urine RBC (Auto) 1 04/18/18 04/18/18 12:23 12:23 Creatine Kinase 81 Troponin I < 0.012 NT-Pro-B Natriuret Pep 690 Impressions: Chest X-Ray 04/18/18 12:20 IMPRESSION: Mass versus infiltrate in the left upper lobe. Chest/Abdomen CTA 04/18/18 13:03 IMPRESSION: Extensive left upper lobe infiltrate with possible cavitation. Underlying mass is still in the differential. No hilar or mediastinal masses. Assessment & Plan - Diagnosis (1) Pneumonia Qualifiers: Pneumonia type: due to unspecified organism Laterality: left Lung location: upper lobe of lung Qualified Code(s): J18.1 - Lobar pneumonia, unspecified organism Is this a current diagnosis for this admission?: Yes Plan: Continue antibiotics. Check sputum cultures. Pulmonology consultation. Respiratory isolation. Sputum for AFB and culture. TB QuantiFERON gold test. Place PPD. (2) Hyperlipidemia Is this a current diagnosis for this admission?: Yes Plan: Continue statin (3) Tobacco dependence Is this a current diagnosis for this admission?: Yes Plan: Nicotine patch. (4) COPD (chronic obstructive pulmonary disease) Is this a current diagnosis for this admission?: Yes Plan: Stable. Continue outpatient inhalers. Nebs as needed. (5) DM2 (diabetes mellitus, type 2) Is this a current diagnosis for this admission?: Yes Plan: Diabetic diet. Lantus and insulin sliding scale. (6) HTN (hypertension) Qualifiers: Is this a current diagnosis for this admission?: Yes Plan: Blood pressures have now normalized. He was hypotensive initially. Continue to monitor and adjust medications accordingly. - Time Time Spent: Greater than 70 Minutes
[2018-04-18] MEDS ORDERED: OXYCODONE-ACETAMINOPHEN 5-325 MG TABLET PO PRN (16:20)
[2018-04-18] MEDS ORDERED: OXYCODONE HCL IR 5 MG TABLET PO PRN (16:21)
[2018-04-18] MEDS ORDERED: TUBERCULIN,PURIF.PROT.DERIV. 5 TU/0.1 ML TEST 1 ML VIAL ID ONE (17:00)
[2018-04-18 18:19] LABS: ALANINE AMINOTRANSFERASE 26 U/L (21-72); ALBUMIN 2.8 g/dL (3.5-5.0); ALKALINE PHOSPHATASE 74 U/L (38-126); ANION GAP 10 (5-19); ASPARTATE AMINO TRANSFERASE 17 U/L (17-59); BILIRUBIN,DIRECT 0.3 mg/dL (0.0-0.4); BILIRUBIN,TOTAL 0.3 mg/dL (0.2-1.3); BLOOD UREA NITROGEN 24 mg/dL (7-20); CALCIUM 7.5 mg/dL (8.4-10.2); CARBON DIOXIDE 25 mmol/L (22-30); CHLORIDE 100 mmol/L (98-107); GLUCOSE 254 mg/dL (75-110); POTASSIUM 3.5 mmol/L (3.6-5.0); SODIUM 135.2 mmol/L (137-145); TOTAL PROTEIN 5.5 g/dL (6.3-8.2)
[2018-04-18] MEDS: MAGNESIUM OXIDE 400 MG TABLET PO SCH (20:03)
[2018-04-18] MEDS: SIMVASTATIN 40 MG TABLET PO SCH (21:50)
[2018-04-18] MEDS: ROPINIROLE HCL 1 MG TABLET PO SCH (21:50)
[2018-04-18] MEDS: FLUTICASONE/SALMETEROL DISKUS 250-50 MCG/DOSE IH SCH (21:51)
[2018-04-18] MEDS: PENTOXIFYLLINE 400 MG TABLET.SA PO SCH (21:51)
--- NOTE | 2018-04-18 22:59 | EKG REPORT ---
SEVERITY:- ABNORMAL ECG - SINUS RHYTHM PROBABLE LEFT ATRIAL ABNORMALITY LEFT VENTRICULAR HYPERTROPHY : Confirmed by: Meghan Coughlin MD 18-Apr-2018 22:58:37
[2018-04-19] MEDS: PENTOXIFYLLINE 400 MG TABLET.SA PO SCH ×3 (05:14→21:56)
[2018-04-19] MEDS: LANSOPRAZOLE 30 MG TAB.RAP.DR PO SCH (05:15)
[2018-04-19 06:38] LABS: ABSOLUTE EOSINOPHILS # (AUTO) 0.1 10^3/uL (0.0-0.6); ABSOLUTE LYMPHOCYTES (AUTO) 0.9 10^3/uL (0.5-4.7); ABSOLUTE MONOCYTES (AUTO) 0.8 10^3/uL (0.1-1.4); ABSOLUTE NEUT (AUTO) 8.6 10^3/uL (1.7-8.2); BASOPHILS % (AUTO) 0.2 % (0-2); EOSINOPHILS % (AUTO) 1.2 % (0-6); HEMATOCRIT 32.4 % (37.9-51.0); HEMOGLOBIN 11.2 g/dL (13.5-17.0); LYMPHOCYTES % (AUTO) 8.6 % (13-45); MEAN CORPUSCULAR HEMOGLOBIN 30.5 pg (27.0-33.4); MEAN CORPUSCULAR HGB CONC 34.6 g/dL (32.0-36.0); MEAN CORPUSCULAR VOLUME 88 fl (80-97); PLATELET COUNT 239 10^3/uL (150-450); RED BLOOD COUNT 3.69 10^6/uL (4.35-5.55); RED CELL DISTRIBUTION WIDTH 16.5 % (11.5-14.0); TOTAL CELLS COUNTED % (AUTO) 100 %; WHITE BLOOD COUNT 10.4 10^3/uL (4.0-10.5)
[2018-04-19 06:45] LABS: INTERNATIONAL RATION (INR) 1.05; PROTHROMBIN TIME 14.2 SEC (11.4-15.4)
[2018-04-19 06:46] LABS: PARTIAL THROMBOPLASTIN TIME 34.1 SEC (23.5-35.8)
[2018-04-19 06:54] LABS: ALANINE AMINOTRANSFERASE 25 U/L (21-72); ALBUMIN 2.7 g/dL (3.5-5.0); ALKALINE PHOSPHATASE 70 U/L (38-126); ANION GAP 8 (5-19); ASPARTATE AMINO TRANSFERASE 19 U/L (17-59); BILIRUBIN,DIRECT 0.3 mg/dL (0.0-0.4); BILIRUBIN,TOTAL 0.3 mg/dL (0.2-1.3); BLOOD UREA NITROGEN 20 mg/dL (7-20); CALCIUM 7.7 mg/dL (8.4-10.2); CARBON DIOXIDE 28 mmol/L (22-30); CHLORIDE 101 mmol/L (98-107); GLUCOSE 152 mg/dL (75-110); PHOSPHORUS 1.5 mg/dL (2.5-4.5); POTASSIUM 3.1 mmol/L (3.6-5.0); SODIUM 136.8 mmol/L (137-145); TOTAL PROTEIN 5.4 g/dL (6.3-8.2)
[2018-04-19] MEDS ORDERED: POTASSIUM CHLORIDE 10 MEQ CAPSULE.ER PO ONE (07:39)
[2018-04-19] MEDS ORDERED: NICOTINE 21 MG/24 HR PATCH.TD24 TD PRN (07:42)
[2018-04-19] MEDS: PHOSPHORUS #1 250 MG TABLET PO SCH ×3 (08:10→15:28)
[2018-04-19] MEDS: POTASSIUM CHLORIDE 10 MEQ CAPSULE.ER PO SCH ×3 (08:10→12:27)
[2018-04-19] MEDS: INSULIN LISPRO 100 UNIT/ML 3 ML VIAL SUBCUT PRN (08:10)
[2018-04-19] MEDS ORDERED: INSULIN GLARGINE,HUM.REC.ANLOG 1,000 UNIT/10 ML UNIT SUBCUT SCH ×2 (10:00)
[2018-04-19] MEDS: LACTOBACILLUS ACIDOPHILUS 250 MG TAB PO SCH ×2 (10:40→17:30)
[2018-04-19] MEDS: CETIRIZINE 10 MG TABLET PO SCH (10:41)
[2018-04-19] MEDS: MAGNESIUM OXIDE 400 MG TABLET PO SCH ×2 (10:41→17:30)
[2018-04-19] MEDS: FLUTICASONE/SALMETEROL DISKUS 250-50 MCG/DOSE IH SCH ×2 (10:41→21:55)
[2018-04-19] MEDS: LEVOFLOXACIN 750 MG/D5W RTU 750 MG/150 ML RTUPB IV SCH (10:41)
--- NOTE | 2018-04-19 13:12 | PDOC PROGRESS REPORT ---
Subjective Progress Note for:: 04/19/18 Subjective:: No complaints at present. No hemoptysis. Appetite is poor. PPD placed. Sputum AFB pending. Reason For Visit: PNEUMONIA Physical Exam Vital Signs: Temp Pulse Resp BP Pulse Ox 100.4 F 82 14 146/67 H 95 04/19/18 09:13 04/19/18 10:25 04/19/18 10:25 04/19/18 09:13 04/19/18 10:25 Intake & Output 04/18/18 04/19/18 04/20/18 06:59 06:59 06:59 Intake Total 585 Balance 585 Weight 53.4 kg General appearance: PRESENT: no acute distress Head exam: PRESENT: normocephalic Respiratory exam: PRESENT: symmetrical, unlabored Cardiovascular exam: PRESENT: RRR GI/Abdominal exam: PRESENT: normal bowel sounds, soft. ABSENT: tenderness Rectal exam: PRESENT: deferred Neurological exam: PRESENT: alert, awake, oriented to person, oriented to place , oriented to time, oriented to situation Psychiatric exam: PRESENT: appropriate affect Results Laboratory Results: 04/19/18 06:22 04/19/18 06:22 04/18/18 04/19/18 04/19/18 17:07 06:22 06:22 WBC 10.4 RBC 3.69 L Hgb 11.2 L Hct 32.4 L MCV 88 MCH 30.5 MCHC 34.6 RDW 16.5 H Plt Count 239 Seg Neutrophils % 82.0 H Lymphocytes % 8.6 L Monocytes % 8.0 Eosinophils % 1.2 Basophils % 0.2 Absolute Neutrophils 8.6 H Absolute Lymphocytes 0.9 Absolute Monocytes 0.8 Absolute Eosinophils 0.1 Absolute Basophils 0.0 Sodium 135.2 L 136.8 L Potassium 3.5 L 3.1 L Chloride 100 101 Carbon Dioxide 25 28 Anion Gap 10 8 BUN 24 H 20 Creatinine 0.96 0.80 Est GFR ( Amer) > 60 > 60 Est GFR (Non-Af Amer) > 60 > 60 Glucose 254 H 152 H Calcium 7.5 L 7.7 L Phosphorus 1.5 L Magnesium 1.7 Total Bilirubin 0.3 0.3 AST 17 19 ALT 26 25 Alkaline Phosphatase 74 70 Total Protein 5.5 L 5.4 L Albumin 2.8 L 2.7 L TSH 04/19/18 06:22 WBC RBC Hgb Hct MCV MCH MCHC RDW Plt Count Seg Neutrophils % Lymphocytes % Monocytes % Eosinophils % Basophils % Absolute Neutrophils Absolute Lymphocytes Absolute Monocytes Absolute Eosinophils Absolute Basophils Sodium Potassium Chloride Carbon Dioxide Anion Gap BUN Creatinine Est GFR ( Amer) Est GFR (Non-Af Amer) Glucose Calcium Phosphorus Magnesium Total Bilirubin AST ALT Alkaline Phosphatase Total Protein Albumin TSH 0.55 04/18/18 04/19/18 16:30 06:22 Troponin I < 0.012 NT-Pro-B Natriuret Pep 657 Impressions: Chest X-Ray 04/18/18 12:20 IMPRESSION: Mass versus infiltrate in the left upper lobe. Chest/Abdomen CTA 04/18/18 13:03 IMPRESSION: Extensive left upper lobe infiltrate with possible cavitation. Underlying mass is still in the differential. No hilar or mediastinal masses. Assessment & Plan - Diagnosis (1) Pneumonia Qualifiers: Pneumonia type: due to unspecified organism Laterality: left Lung location: upper lobe of lung Qualified Code(s): J18.1 - Lobar pneumonia, unspecified organism Is this a current diagnosis for this admission?: Yes Plan: Day 2 Levaquin Check sputum cultures and AFB Pulmonology consultation. Respiratory isolation. TB QuantiFERON gold test. Follow up on PPD. (2) Hyperlipidemia Is this a current diagnosis for this admission?: Yes Plan: Continue statin (3) Tobacco dependence Is this a current diagnosis for this admission?: Yes Plan: Nicotine patch. (4) COPD (chronic obstructive pulmonary disease) Is this a current diagnosis for this admission?: Yes Plan: Stable. Continue outpatient inhalers. Nebs as needed. (5) DM2 (diabetes mellitus, type 2) Is this a current diagnosis for this admission?: Yes Plan: Diabetic diet. Lantus and insulin sliding scale. (6) HTN (hypertension) Qualifiers: Is this a current diagnosis for this admission?: Yes Plan: Blood pressures have now normalized. He was hypotensive initially. Continue to monitor and adjust medications accordingly. (7) Hypokalemia Is this a current diagnosis for this admission?: Yes Plan: Replete (8) Hypomagnesemia Is this a current diagnosis for this admission?: Yes Plan: Replete (9) Hypophosphatemia Is this a current diagnosis for this admission?: Yes Plan: Replete (10) Cavitary lesion of lung Is this a current diagnosis for this admission?: Yes Plan: Airborne precautions. R/o TB ID and Pulmonology consults requested - Time Time Spent with patient: 25-34 minutes
[2018-04-19] MEDS ORDERED: (PENDING PHARMACY ID) (Lisinopril [Prinivil] 20 MG) PO SCH (13:15)
[2018-04-19] MEDS: LISINOPRIL 10 MG TABLET PO SCH (15:29)
[2018-04-19] MEDS: INSULIN GLARGINE,HUM.REC.ANLOG 300 UNIT/3 ML INSULN.PEN SUBCUT SCH (17:33)
[2018-04-19] MEDS: ROPINIROLE HCL 1 MG TABLET PO SCH (21:54)
[2018-04-19] MEDS: SIMVASTATIN 40 MG TABLET PO SCH (21:55)
[2018-04-19] MEDS: DEXTROSE 40% GEL 15 GM TUBE PO PRN (23:41)
[2018-04-20] MEDS: PENTOXIFYLLINE 400 MG TABLET.SA PO SCH ×3 (06:47→22:09)
[2018-04-20] MEDS: LANSOPRAZOLE 30 MG TAB.RAP.DR PO SCH (06:48)
[2018-04-20] MEDS: INSULIN GLARGINE,HUM.REC.ANLOG 300 UNIT/3 ML INSULN.PEN SUBCUT SCH ×2 (06:49→17:36)
[2018-04-20] MEDS: PHOSPHORUS #1 250 MG TABLET PO SCH ×3 (08:49→17:22)
[2018-04-20] MEDS: MAGNESIUM OXIDE 400 MG TABLET PO SCH ×2 (10:03→17:36)
[2018-04-20] MEDS: LACTOBACILLUS ACIDOPHILUS 250 MG TAB PO SCH ×2 (10:03→17:36)
[2018-04-20] MEDS: CETIRIZINE 10 MG TABLET PO SCH (10:03)
[2018-04-20] MEDS: FLUTICASONE/SALMETEROL DISKUS 250-50 MCG/DOSE IH SCH ×2 (10:04→22:09)
[2018-04-20] MEDS: LEVOFLOXACIN 750 MG/D5W RTU 750 MG/150 ML RTUPB IV SCH (10:05)
--- NOTE | 2018-04-20 12:41 | PDOC CONSULTATION ---
Consultation Consult Date: 04/19/18 Attending physician:: NANCY NARAYANAN Consult reason:: Left upper lobe infiltrate History of Present Illness Admission Date/PCP: 04/18/18 16:17 CYNTHIA LÓPEZ History of Present Illness: JEYSON HELLER is a 57 year old,Plan a cough 3-5 days prior to admission fever and chills for a week no nausea vomiting diarrhea no hemoptysis PPD is has been positive in the past patient states he has been treated with medicines for an extended period of time he is not sure which medicines are for how long. He denies a history of chronic lung disease as a child he admits to exposure to passive smoke as a child and as an adult he himself is smoked 1 pack a day for 50 years and stopped smoking smoking 1-2 weeks ago. 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 3 dogs no recent travel no angina-like chest pain sleeps on 2 pillows occasional PND occasional nocturnal cough occasional edema no snoring no restless sleep nocturia 2 times per night denies unrestful sleep or excessive daytime somnolence. He status post esophageal dilatation 2 months ago. Past Medical History Cardiac Medical History: Reports: Hyperlipidema, Hypertension Pulmonary Medical History: Reports: Chronic Obstructive Pulmonary Disease (COPD) EENT Medical History: Reports: Cataracts Neurological Medical History: Denies: Multiple Sclerosis, Seizures Endocrine Medical History: Reports: Diabetes Mellitus Type 2 Renal/ Medical History: Denies: Chronic Kidney Disease GI Medical History: Reports: Gastroesophageal Reflux Disease Denies: Crohn's Disease, Ulcerative Colitis Musculoskeltal Medical History: Denies: Fibromyalgia Skin Medical History: Denies: Psoriasis Psychiatric Medical History: Reports: Tobacco Dependency Denies: Depression Traumatic Medical History: Denies: Traumatic Brain Injury Hematology: Denies: Sickle Cell Disease Infectious Medical History: Denies: Clostridium Difficile Past Surgical History Past Surgical History: Reports: Orthopedic Surgery Social History Information Source: Patient, [facility] Records 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 Smoking Status: Current Every Day Smoker Cigarettes Packs Per Day: 1 Number of Years Smokin Last Time Smoked: 04/18/18 Passive smoke exposure as: Both Frequency of Alcohol Use: None Hx Recreational Drug Use: Yes Drugs: None Hx Prescription Drug Abuse: No Do you have pets?: Yes Have you had any respiratory illnesses as a child?: No Have you been exposed to any sick contacts recently?: No Have you had any recent respiratory illnesses?: No Have you travelled outside of [place] in the past 12 months?: No - Advance Directive Resuscitation Status: Full Code Family History Family History: CAD, DM, Hyperlipidemia, Hypertension, Malignancy Parental Family History Reviewed: Yes Children Family History Reviewed: Yes Sibling(s) Family History Reviewed.: Yes Medication/Allergy Home Medications: Albuterol Sulfate [Proair HFA Inhalation Aerosol 8.5 gm MDI] 2 puff IH Q4HP PRN 03/14/17 Cetirizine HCl [Zyrtec 10 mg Tablet] 10 mg PO DAILY 03/14/17 Fluticasone/Salmeterol [Advair 250-50 Diskus 14 Dose/Diskus] 1 puff IH Q12 03/14 Gabapentin [Neurontin 300 mg Capsule] 300 mg PO Q8 03/14/17 Insulin Glargine,Hum.rec.anlog [Lantus Solostar] 25 units SQ BID 03/14/17 Lisinopril [Prinivil] 20 mg PO DAILY 03/14/17 Omeprazole 40 mg PO BID 03/14/17 Pentoxifylline [Trental 400 mg Tablet.sa] 400 mg PO Q8 03/14/17 Ropinirole HCl 1.5 mg PO QHS 03/14/17 Simvastatin [Zocor 20 mg Tablet] 20 mg PO QHS 03/14/17 Aspirin [Aspirin 81 mg Chewable Tablet] 81 mg PO DAILY 04/19/18 Insulin Aspart [Novolog Flexpen] 2 unit SQ MEALS 04/19/18 Oxycodone HCl/Acetaminophen [Percocet 5-325 mg Tablet] 1 tab PO Q8HP PRN Allergies/Adverse Reactions: No Known Allergies Allergy (Verified 04/18/18 12:13) Review of Systems Constitutional: ABSENT: anorexia, chills, fever(s), headache(s), night sweats Eyes: ABSENT: visual disturbances Ears: ABSENT: hearing changes Nose, Mouth, and Throat: ABSENT: sore throat Cardiovascular: ABSENT: palpitations Respiratory: PRESENT: cough, dyspnea, sputum. ABSENT: hemoptysis Gastrointestinal: ABSENT: abdominal pain, bloating, coffee ground emesis, hematemesis, hematochezia, melena Genitourinary: ABSENT: dysuria, hematuria Musculoskeletal: ABSENT: deformity, joint swelling Integumentary: ABSENT: pruritus, rash Neurological: ABSENT: abnormal gait, abnormal movements, abnormal speech, confusion, focal weakness, frequent falls, lack of coordination, memory loss Psychiatric: ABSENT: hallucinations, homidical ideation, suicidal ideation Endocrine: ABSENT: cold intolerance, heat intolerance Hematologic/Lymphatic: PRESENT: easy bruising Allergic/Immunologic: PRESENT: seasonal rhinorrhea Physical Exam Vital Signs: Temp Pulse Resp BP Pulse Ox 97.8 F 75 14 170/64 H 95 04/19/18 11:19 04/19/18 16:00 04/19/18 16:00 04/19/18 11:19 04/19/18 16:00 Intake & Output 04/18/18 04/19/18 04/20/18 06:59 06:59 06:59 Intake Total 585 Balance 585 Weight 53.4 kg General appearance: PRESENT: no acute distress, cooperative, disheveled, hard of hearing, thin Head exam: PRESENT: atraumatic, normocephalic Eye exam: PRESENT: conjunctiva pale, EOMI. ABSENT: nystagmus, periorbital swelling, scleral icterus Neck exam: ABSENT: carotid bruit, JVD, lymphadenopathy, thyromegaly, tracheal deviation, tracheostomy Respiratory exam: PRESENT: decreased breath sounds, prolonged expiratory phas, rales, rhonchi, unlabored, wheezes. ABSENT: retraction, stridor, tachypnea Cardiovascular exam: PRESENT: RRR, +S1, +S2 Pulses: PRESENT: normal radial pulses GI/Abdominal exam: PRESENT: normal bowel sounds, soft Extremities exam: ABSENT: calf tenderness, clubbing, joint swelling, pedal edema Musculoskeletal exam: ABSENT: deformity, dislocation Neurological exam: PRESENT: alert, awake Psychiatric exam: PRESENT: flat affect Skin exam: PRESENT: dry, warm Results Laboratory Results: 04/19/18 06:22 04/19/18 06:22 04/18/18 04/19/18 04/19/18 17:07 06:22 06:22 WBC 10.4 RBC 3.69 L Hgb 11.2 L Hct 32.4 L MCV 88 MCH 30.5 MCHC 34.6 RDW 16.5 H Plt Count 239 Seg Neutrophils % 82.0 H Lymphocytes % 8.6 L Monocytes % 8.0 Eosinophils % 1.2 Basophils % 0.2 Absolute Neutrophils 8.6 H Absolute Lymphocytes 0.9 Absolute Monocytes 0.8 Absolute Eosinophils 0.1 Absolute Basophils 0.0 Sodium 135.2 L 136.8 L Potassium 3.5 L 3.1 L Chloride 100 101 Carbon Dioxide 25 28 Anion Gap 10 8 BUN 24 H 20 Creatinine 0.96 0.80 Est GFR ( Amer) > 60 > 60 Est GFR (Non-Af Amer) > 60 > 60 Glucose 254 H 152 H Calcium 7.5 L 7.7 L Phosphorus 1.5 L Magnesium 1.7 Total Bilirubin 0.3 0.3 AST 17 19 ALT 26 25 Alkaline Phosphatase 74 70 Total Protein 5.5 L 5.4 L Albumin 2.8 L 2.7 L TSH 04/19/18 06:22 WBC RBC Hgb Hct MCV MCH MCHC RDW Plt Count Seg Neutrophils % Lymphocytes % Monocytes % Eosinophils % Basophils % Absolute Neutrophils Absolute Lymphocytes Absolute Monocytes Absolute Eosinophils Absolute Basophils Sodium Potassium Chloride Carbon Dioxide Anion Gap BUN Creatinine Est GFR ( Amer) Est GFR (Non-Af Amer) Glucose Calcium Phosphorus Magnesium Total Bilirubin AST ALT Alkaline Phosphatase Total Protein Albumin TSH 0.55 04/18/18 04/19/18 16:30 06:22 Troponin I < 0.012 NT-Pro-B Natriuret Pep 657 Impressions: Chest X-Ray 04/18/18 12:20 IMPRESSION: Mass versus infiltrate in the left upper lobe. Chest/Abdomen CTA 04/18/18 13:03 IMPRESSION: Extensive left upper lobe infiltrate with possible cavitation. Underlying mass is still in the differential. No hilar or mediastinal masses. Assessment & Plan - Diagnosis (1) Cavitary lesion of lung Is this a current diagnosis for this admission?: Yes Plan: Patient has had positive PPD in the past and been treated for tuberculosis. Click serum sputum's. This left upper lobe infiltrate could also be from a malignancy. However, biopsies in the face of acute inflammation are frequently frustrating and seldom productive. (2) Pneumonia Qualifiers: Pneumonia type: due to unspecified organism Laterality: left Lung location: upper lobe of lung Qualified Code(s): J18.1 - Lobar pneumonia, unspecified organism Is this a current diagnosis for this admission?: Yes Plan: Mucomyst consider chest physiotherapy and postural drainage (3) Tobacco dependence Is this a current diagnosis for this admission?: Yes Plan: Discussed at length the risk and dangers associated with continued tobacco use consider transdermal nicotine (4) COPD (chronic obstructive pulmonary disease) Qualifiers: Emphysema type: panlobular Is this a current diagnosis for this admission?: Yes Plan: Discontinue Advair initiate therapy with trelogfouzia MDI Generic Name Dose Route Start Last Admin Trade Name Freq PRN Reason Stop Dose Admin Albuterol 2.5 mg 04/18/18 15:56 Ventolin 0.083% Neb 2.5 Mg/3 Ml Ampul NEB 05/18/18 15:55 [id number] PRN SHORTNESS OF BREATH Nicotine 1 each 04/19/18 07:42 Nicoderm 21 Mg/24 Hr Transderm Patch TD 05/19/18 07:41 DAILYP PRN WITHDRAWAL SYMPTOMS Fluticasone/Salmeterol 1 inh 04/18/18 22:00 04/20/18 10:04 Advair 250-50 Diskus 14 Dose/Diskus IH 05/18/18 21:59 1 inh Q12 MABEL (5) GERD (gastroesophageal reflux disease) Qualifiers: Esophagitis presence: esophagitis presence not specified Qualified Code(s) : K21.9 - Gastro-esophageal reflux disease without esophagitis Is this a current diagnosis for this admission?: Yes Plan: PPI history of esophageal dilatation certainly this would predispose patient to aspiration
--- NOTE | 2018-04-20 12:43 | PDOC PROGRESS REPORT ---
Subjective Progress Note for:: 04/20/18 Subjective:: Unchanged Reason For Visit: PNEUMONIA Physical Exam Vital Signs: Temp Pulse Resp BP Pulse Ox 99.2 F 84 14 177/77 H 97 04/20/18 08:02 04/20/18 08:02 04/20/18 08:02 04/20/18 08:02 04/20/18 08:02 Intake & Output 04/19/18 04/20/18 04/21/18 06:59 06:59 06:59 Intake Total 585 1098 Balance 585 1098 Weight 53.4 kg 52.4 kg General appearance: PRESENT: no acute distress, cooperative, disheveled, hard of hearing, thin Head exam: PRESENT: atraumatic, normocephalic Eye exam: PRESENT: conjunctiva pale, EOMI. ABSENT: nystagmus Mouth exam: PRESENT: dry mucosa, neck supple, tongue midline Teeth exam: PRESENT: edentulous Neck exam: ABSENT: carotid bruit, JVD, lymphadenopathy, thyromegaly, tracheal deviation, tracheostomy Respiratory exam: PRESENT: decreased breath sounds, prolonged expiratory phas, rales, rhonchi, unlabored, wheezes. ABSENT: retraction, stridor, tachypnea Cardiovascular exam: PRESENT: RRR, +S1, +S2 Pulses: PRESENT: normal radial pulses GI/Abdominal exam: PRESENT: normal bowel sounds, soft Extremities exam: ABSENT: calf tenderness, clubbing, joint swelling Musculoskeletal exam: ABSENT: deformity, dislocation Neurological exam: PRESENT: alert, awake Psychiatric exam: PRESENT: flat affect Skin exam: PRESENT: dry, warm Results Laboratory Results: 04/19/18 06:22 04/19/18 06:22 04/18/18 04/19/18 16:30 06:22 Troponin I < 0.012 NT-Pro-B Natriuret Pep 657 Impressions: Chest X-Ray 04/18/18 12:20 IMPRESSION: Mass versus infiltrate in the left upper lobe. Chest/Abdomen CTA 04/18/18 13:03 IMPRESSION: Extensive left upper lobe infiltrate with possible cavitation. Underlying mass is still in the differential. No hilar or mediastinal masses. Assessment & Plan - Diagnosis (1) Cavitary lesion of lung Is this a current diagnosis for this admission?: Yes Plan: Patient has had positive PPD in the past and been treated for tuberculosis. Click serum sputum's. This left upper lobe infiltrate could also be from a malignancy. However, biopsies in the face of acute inflammation are frequently frustrating and seldom productive. (2) Pneumonia Qualifiers: Pneumonia type: due to unspecified organism Laterality: left Lung location: upper lobe of lung Qualified Code(s): J18.1 - Lobar pneumonia, unspecified organism Is this a current diagnosis for this admission?: Yes Plan: Mucomyst consider chest physiotherapy and postural drainage (3) Tobacco dependence Is this a current diagnosis for this admission?: Yes Plan: Discussed at length the risk and dangers associated with continued tobacco use consider transdermal nicotine (4) COPD (chronic obstructive pulmonary disease) Qualifiers: Emphysema type: panlobular Is this a current diagnosis for this admission?: Yes Plan: Discontinue Advair initiate therapy with eliot MDI Generic Name Dose Route Start Last Admin Trade Name Freq PRN Reason Stop Dose Admin Albuterol 2.5 mg 04/18/18 15:56 Ventolin 0.083% Neb 2.5 Mg/3 Ml Ampul NEB 05/18/18 15:55 RTQ3HP PRN SHORTNESS OF BREATH Nicotine 1 each 04/19/18 07:42 Nicoderm 21 Mg/24 Hr Transderm Patch TD 05/19/18 07:41 DAILYP PRN WITHDRAWAL SYMPTOMS Fluticasone/Salmeterol 1 inh 04/18/18 22:00 04/20/18 10:04 Advair 250-50 Diskus 14 Dose/Diskus IH 05/18/18 21:59 1 inh Q12 MABEL (5) GERD (gastroesophageal reflux disease) Qualifiers: Esophagitis presence: esophagitis presence not specified Qualified Code(s) : K21.9 - Gastro-esophageal reflux disease without esophagitis Is this a current diagnosis for this admission?: Yes Plan: PPI history of esophageal dilatation certainly this would predispose patient to aspiration
[2018-04-20] MEDS: INSULIN LISPRO 100 UNIT/ML 3 ML VIAL SUBCUT PRN ×2 (13:06→17:22)
[2018-04-20] MEDS: LISINOPRIL 10 MG TABLET PO SCH (13:06)
--- NOTE | 2018-04-20 15:29 | Progress Note ---
Provider Note Provider Note: ID Consult Note Asked to review patient's chart. Pt not seen or examined. Power Webber is a 57 year old man admitted on 04/18/18 for cough, fever and chills x 1 week, associated generalized weakness and lightheadedness. No significant recent weight loss or hemoptysis. He reported having completed a recent course of antibiotics from his PMD for the similar symptoms. PMH includes prior TB infection treated over 10 years ago, GERD, esophageal dilatation 2 months ago, COPD, former tobacco use, prior hx of alochol withdrawal delirium and DM. Tmax 100.4 F on 04/19. WBC 12.7 and Cr 1.3 on presentation, since improved. Exam was notable for decreased breath sounds, prolonged expiratory phase. CXR on 04/18 demonstrated STEVO mass vs infiltrate. CTA chest on 04/18 was read as showing extensive STEVO infitlrate with possible cavitation. Blood cultures negative x 24h, sputum gram stain and culture from 04/19 and 04/20 pending. AFB sputum smear and culture from 04/20 pending. Impression/recommendations Pneumonia with STEVO cavitary lesion - Agree with current evaluation approach, including airborne isolation until 3 sputum AFB smears are negative, obtained at least 8 hours apart, given the location of the lesion and TB included in the differential, although re- infection or relapse of TB would be unusual after treatment. With a prior hx of TB, repeat IGRA (Quantiferon) or PPD would not be expected to be helpful. Quantiferon and PPD are tests to help determine whether pt has had TB exposure/ infection, but in his case, he is known to have had this already. - The differential considerations for a cavitary lung lesion are broad and includes aspiration/evolving lung abscess given hx of GERD and esophageal dilatation as risk factors. Consider empiric Unasyn rather than Levaquin for expanded anaerobic activity and f/u on sputum cultures. Can consider fungal sputum culture as well, but shorter duration of symptoms favors bacterial etiology. Jaiden Riley MD [facility] Infectious Diseases pager [phone]
[2018-04-20 17:06] LABS: ABSOLUTE EOSINOPHILS # (AUTO) 0.1 10^3/uL (0.0-0.6); ABSOLUTE LYMPHOCYTES (AUTO) 0.9 10^3/uL (0.5-4.7); ABSOLUTE MONOCYTES (AUTO) 0.6 10^3/uL (0.1-1.4); ABSOLUTE NEUT (AUTO) 5.8 10^3/uL (1.7-8.2); BASOPHILS % (AUTO) 0.4 % (0-2); EOSINOPHILS % (AUTO) 1.1 % (0-6); HEMATOCRIT 35.1 % (37.9-51.0); LYMPHOCYTES % (AUTO) 11.6 % (13-45); MEAN CORPUSCULAR HGB CONC 34.3 g/dL (32.0-36.0); MEAN CORPUSCULAR VOLUME 88 fl (80-97); MONOCYTES % (AUTO) 8.4 % (3-13); PLATELET COUNT 222 10^3/uL (150-450); RED CELL DISTRIBUTION WIDTH 16.1 % (11.5-14.0); SEGMENTED NEUTROPHILS % (AUTO) 78.5 % (42-78); TOTAL CELLS COUNTED % (AUTO) 100 %; WHITE BLOOD COUNT 7.4 10^3/uL (4.0-10.5)
[2018-04-20 17:23] LABS: ALANINE AMINOTRANSFERASE 27 U/L (21-72); ALKALINE PHOSPHATASE 81 U/L (38-126); ANION GAP 9 (5-19); ASPARTATE AMINO TRANSFERASE 28 U/L (17-59); BILIRUBIN,DIRECT 0.4 mg/dL (0.0-0.4); BILIRUBIN,TOTAL 0.5 mg/dL (0.2-1.3); BLOOD UREA NITROGEN 12 mg/dL (7-20); CARBON DIOXIDE 29 mmol/L (22-30); CHLORIDE 98 mmol/L (98-107); GLUCOSE 167 mg/dL (75-110); POTASSIUM 3.2 mmol/L (3.6-5.0); SODIUM 136.4 mmol/L (137-145)
--- NOTE | 2018-04-20 17:34 | PDOC PROGRESS REPORT ---
Subjective Progress Note for:: 04/20/18 Subjective:: Pt seen at bedside. He still has cough and dyspnea, though feels better. Pt has given only 1 sputum specimen for AFB- result pending; we will try and get the remaining 2 sputum specimen at least 8 hours apart for AFB. We appreciate input of I.D specialist, Dr Riley and lithographing machine operator,Dr Silverman in the management of this pt. I had ordered CMP and CBC earlier, but it is pending , in order to evaluate the hypokalemia on yesterday's result.Pt is still on respiratory isolation pending the result of sputum AFB. Reason For Visit: PNEUMONIA Physical Exam Vital Signs: Temp Pulse Resp BP Pulse Ox 97.5 F 92 14 161/82 H 99 04/20/18 16:27 04/20/18 16:27 04/20/18 16:27 04/20/18 16:27 04/20/18 16:27 Intake & Output 04/19/18 04/20/18 04/21/18 06:59 06:59 06:59 Intake Total 585 1098 236 Output Total 175 Balance 585 1098 61 Weight 53.4 kg 52.4 kg General appearance: PRESENT: no acute distress Head exam: PRESENT: atraumatic, normocephalic Eye exam: PRESENT: EOMI, PERRLA Mouth exam: PRESENT: moist, neck supple Neck exam: PRESENT: full ROM Respiratory exam: PRESENT: crackles, decreased breath sounds Cardiovascular exam: PRESENT: +S1, +S2 Pulses: PRESENT: +2 pedal pulses bilateral GI/Abdominal exam: PRESENT: normal bowel sounds, soft Rectal exam: PRESENT: deferred Extremities exam: PRESENT: full ROM Musculoskeletal exam: PRESENT: full ROM Neurological exam: PRESENT: alert, awake, oriented to person, oriented to place , oriented to time Psychiatric exam: PRESENT: normal mood Results Laboratory Results: 04/18/18 04/19/18 16:30 06:22 Troponin I < 0.012 NT-Pro-B Natriuret Pep 657 Impressions: Chest X-Ray 04/18/18 12:20 IMPRESSION: Mass versus infiltrate in the left upper lobe. Chest/Abdomen CTA 04/18/18 13:03 IMPRESSION: Extensive left upper lobe infiltrate with possible cavitation. Underlying mass is still in the differential. No hilar or mediastinal masses. Assessment & Plan - Diagnosis (1) Pneumonia Qualifiers: Pneumonia type: due to unspecified organism Laterality: left Lung location: upper lobe of lung Qualified Code(s): J18.1 - Lobar pneumonia, unspecified organism Is this a current diagnosis for this admission?: Yes Plan: Ct with Levaquin 750 mg qd IV; add Clindamycin 300mg q8h IV for additional anaerobic coverage as recommended. Lactobacillus 500 mg BID PO;Ct with Tylenol 650 mg q6h prn po; f/u sputum and blood cultures. (2) Cavitary lesion of lung Is this a current diagnosis for this admission?: Yes Plan: Ct with Airborne isolation; F/u sputum AFB x3 results. (3) DM2 (diabetes mellitus, type 2) Is this a current diagnosis for this admission?: Yes Plan: Ct with accucheck QAC, QHS with slidding scale with humalog insulin [facility] protocol ; Ct Lantus insulin 25 iu BID subcut; 1800 calorie ADA diet. (4) HTN (hypertension) Qualifiers: Is this a current diagnosis for this admission?: Yes Plan: Ct with Lisinopril 20 mg qd po; 2 g sodium diet. (5) Hyperlipidemia Qualifiers: Hyperlipidemia type: mixed hyperlipidemia Qualified Code(s): E78.2 - Mixed hyperlipidemia Is this a current diagnosis for this admission?: Yes Plan: Ct with Simvastatin 20 mg qhs po; 200 mg cholesterol diet. (6) GERD (gastroesophageal reflux disease) Qualifiers: Esophagitis presence: esophagitis presence not specified Qualified Code(s) : K21.9 - Gastro-esophageal reflux disease without esophagitis Is this a current diagnosis for this admission?: Yes Plan: Ct with Prevacid 30 mg qd po since we do not have Omeprazole in our formulary (7) Diabetic neuropathy Qualifiers: Diabetes mellitus type: type 2 Diabetes mellitus complication detail: diabetic polyneuropathy Qualified Code(s): E11.42 - Type 2 diabetes mellitus with diabetic polyneuropathy Is this a current diagnosis for this admission?: Yes Plan: Ct with Gabapentin 300 mg TID po. (8) COPD (chronic obstructive pulmonary disease) Qualifiers: Emphysema type: panlobular Is this a current diagnosis for this admission?: Yes Plan: Ct with oxygen by N/C 2 L/min; Albuterol nebs 2.5 mg q3h prn; Advair 250/50 1 BID. (9) Hypomagnesemia Is this a current diagnosis for this admission?: Yes Plan: Ct with Mg ozide 400 mg BID PO. (10) Tobacco dependence Is this a current diagnosis for this admission?: Yes Plan: Pt counseled on smoking cessation; ct with Nicotine patch 21 mg qd . (11) DVT prophylaxis Is this a current diagnosis for this admission?: Yes Plan: Ct with Lovenox 40 mg qd subcut; SCD - Time Time Spent with patient: 35 or more minutes Smoking Cessation Education: 3 to 10 minutes Medications reviewed and adjusted accordingly: Yes Anticipated discharge: Home Within: within 72 hours - Inpatient Certification Medical Necessity: Failure to Improve With Outpatient Therapy, Significant Comorbidiites Make Outpatient Treatment Too Risky, Need Close Monitoring Due to Risk of Patient Decompensation, Need For Continuous Telemetry Monitoring, Need for Nebulizer Therapy and Monitoring of Response, Need for IV Antibiotics
[2018-04-20] MEDS ORDERED: ENOXAPARIN SODIUM INJ 40 MG/0.4 ML DISP.SYRIN SUBCUT ONE (18:30)
[2018-04-20] MEDS: CLINDAMYCIN 300 MG/D5W RTU 300 MG/50 ML RTUPB IV SCH (22:08)
[2018-04-20] MEDS: ROPINIROLE HCL 1 MG TABLET PO SCH (22:13)
[2018-04-20] MEDS: GABAPENTIN 300 MG CAPSULE PO SCH (22:25)
[2018-04-20] MEDS: SIMVASTATIN 40 MG TABLET PO SCH (22:25)
[2018-04-21] MEDS: DEXTROSE 40% GEL 15 GM TUBE PO PRN (06:30)
[2018-04-21] MEDS: LANSOPRAZOLE 30 MG TAB.RAP.DR PO SCH (06:30)
[2018-04-21] MEDS: GABAPENTIN 300 MG CAPSULE PO SCH ×3 (06:30→22:05)
[2018-04-21] MEDS: PENTOXIFYLLINE 400 MG TABLET.SA PO SCH ×3 (06:31→22:46)
[2018-04-21] MEDS: CLINDAMYCIN 300 MG/D5W RTU 300 MG/50 ML RTUPB IV SCH ×3 (06:32→22:07)
[2018-04-21] MEDS: INSULIN GLARGINE,HUM.REC.ANLOG 300 UNIT/3 ML INSULN.PEN SUBCUT SCH ×2 (06:33→18:34)
[2018-04-21 07:21] LABS: ABSOLUTE EOSINOPHILS # (AUTO) 0.1 10^3/uL (0.0-0.6); ABSOLUTE LYMPHOCYTES (AUTO) 1.1 10^3/uL (0.5-4.7); ABSOLUTE MONOCYTES (AUTO) 0.9 10^3/uL (0.1-1.4); ABSOLUTE NEUT (AUTO) 6.2 10^3/uL (1.7-8.2); BASOPHILS % (AUTO) 0.3 % (0-2); EOSINOPHILS % (AUTO) 1.2 % (0-6); HEMATOCRIT 33.9 % (37.9-51.0); HEMOGLOBIN 11.8 g/dL (13.5-17.0); MEAN CORPUSCULAR HEMOGLOBIN 30.3 pg (27.0-33.4); MEAN CORPUSCULAR HGB CONC 34.7 g/dL (32.0-36.0); MEAN CORPUSCULAR VOLUME 87 fl (80-97); MONOCYTES % (AUTO) 10.4 % (3-13); PLATELET COUNT 218 10^3/uL (150-450); RED BLOOD COUNT 3.89 10^6/uL (4.35-5.55); RED CELL DISTRIBUTION WIDTH 15.8 % (11.5-14.0); SEGMENTED NEUTROPHILS % (AUTO) 75.1 % (42-78); TOTAL CELLS COUNTED % (AUTO) 100 %; WHITE BLOOD COUNT 8.3 10^3/uL (4.0-10.5)
[2018-04-21 07:50] LABS: ALANINE AMINOTRANSFERASE 26 U/L (21-72); ALBUMIN 2.9 g/dL (3.5-5.0); ALKALINE PHOSPHATASE 76 U/L (38-126); ANION GAP 12 (5-19); ASPARTATE AMINO TRANSFERASE 25 U/L (17-59); BILIRUBIN,DIRECT 0.4 mg/dL (0.0-0.4); BILIRUBIN,TOTAL 0.4 mg/dL (0.2-1.3); BLOOD UREA NITROGEN 12 mg/dL (7-20); CALCIUM 7.9 mg/dL (8.4-10.2); CARBON DIOXIDE 27 mmol/L (22-30); CHLORIDE 95 mmol/L (98-107); GLUCOSE 65 mg/dL (75-110); SODIUM 133.7 mmol/L (137-145); TOTAL PROTEIN 5.8 g/dL (6.3-8.2)
[2018-04-21] MEDS: ENOXAPARIN SODIUM INJ 40 MG/0.4 ML DISP.SYRIN SUBCUT SCH (08:20)
[2018-04-21] MEDS: PHOSPHORUS #1 250 MG TABLET PO SCH ×3 (08:24→15:18)
[2018-04-21] MEDS: LEVOFLOXACIN 750 MG/D5W RTU 750 MG/150 ML RTUPB IV SCH (11:15)
[2018-04-21] MEDS: LACTOBACILLUS ACIDOPHILUS 250 MG TAB PO SCH ×2 (11:17→18:34)
[2018-04-21] MEDS: CETIRIZINE 10 MG TABLET PO SCH (11:17)
[2018-04-21] MEDS: MAGNESIUM OXIDE 400 MG TABLET PO SCH ×2 (11:17→18:34)
[2018-04-21] MEDS: POTASSI CL 20 MEQ/50 ML RIDER 20 MEQ/50 ML RTUPB IV SCH ×2 (11:17→16:12)
[2018-04-21] MEDS: POTASSIUM CHLORIDE 20 MEQ/15 ML UDCUP PO SCH (11:18)
[2018-04-21] MEDS: FLUTICASONE/SALMETEROL DISKUS 250-50 MCG/DOSE IH SCH ×2 (11:18→22:06)
[2018-04-21] MEDS: INSULIN LISPRO 100 UNIT/ML 3 ML VIAL SUBCUT PRN ×3 (13:58→22:04)
[2018-04-21] MEDS ORDERED: MAGNESIUM SULFATE 4 GM/100 ML RTUPB IV ONE (14:00)
[2018-04-21] MEDS: LISINOPRIL 10 MG TABLET PO SCH (14:02)
--- NOTE | 2018-04-21 14:30 | PDOC PROGRESS REPORT ---
Subjective Progress Note for:: 04/21/18 Subjective:: He is feeling better and requesting for discharge,. I told him we will discharge after the sputum AFB is negative. His Potassium was 3.0 and he was given KCL IV 20 MEQx2 and KCL 20 MEQ qd PO;. His magnesium was 1.0, so he was given Magnesium sulfate 4g IV, then increased Mg oxide to 800 mg BID.His accucheck this am was 48 despite bedtime snacks, so we decreased his Lantus insulin to 15 iu BID subcut. Reason For Visit: PNEUMONIA Physical Exam Vital Signs: Temp Pulse Resp BP Pulse Ox 99.1 F 91 16 147/78 H 96 04/21/18 11:44 04/21/18 11:44 04/21/18 11:44 04/21/18 11:44 04/21/18 11:44 Intake & Output 04/20/18 04/21/18 04/22/18 06:59 06:59 06:59 Intake Total 1098 1978 322 Output Total 175 Balance 1098 1803 322 Weight 52.4 kg 53.3 kg General appearance: PRESENT: no acute distress, cooperative, well-developed, well-nourished Head exam: PRESENT: atraumatic, normocephalic Eye exam: PRESENT: EOMI, PERRLA Mouth exam: PRESENT: moist, neck supple, tongue midline Neck exam: PRESENT: full ROM Respiratory exam: PRESENT: crackles, decreased breath sounds, symmetrical Cardiovascular exam: PRESENT: +S1, +S2 Pulses: PRESENT: +2 pedal pulses bilateral GI/Abdominal exam: PRESENT: normal bowel sounds, soft Rectal exam: PRESENT: deferred Extremities exam: PRESENT: full ROM Musculoskeletal exam: PRESENT: full ROM Neurological exam: PRESENT: alert, awake, oriented to person, oriented to place , oriented to time Psychiatric exam: PRESENT: normal mood Results Laboratory Results: 04/21/18 07:06 04/21/18 07:06 04/20/18 04/20/18 04/21/18 16:58 16:58 07:06 WBC 7.4 8.3 RBC 4.00 L 3.89 L Hgb 12.0 L 11.8 L Hct 35.1 L 33.9 L MCV 88 87 MCH 30.0 30.3 MCHC 34.3 34.7 RDW 16.1 H 15.8 H Plt Count 222 218 Seg Neutrophils % 78.5 H 75.1 Lymphocytes % 11.6 L 13.0 Monocytes % 8.4 10.4 Eosinophils % 1.1 1.2 Basophils % 0.4 0.3 Absolute Neutrophils 5.8 6.2 Absolute Lymphocytes 0.9 1.1 Absolute Monocytes 0.6 0.9 Absolute Eosinophils 0.1 0.1 Absolute Basophils 0.0 0.0 Sodium 136.4 L Potassium 3.2 L Chloride 98 Carbon Dioxide 29 Anion Gap 9 BUN 12 Creatinine 0.76 Est GFR ( Amer) > 60 Est GFR (Non-Af Amer) > 60 Glucose 167 H Calcium 8.0 L Magnesium Total Bilirubin 0.5 AST 28 ALT 27 Alkaline Phosphatase 81 Total Protein 6.0 L Albumin 3.0 L 04/21/18 04/21/18 07:06 07:06 WBC RBC Hgb Hct MCV MCH MCHC RDW Plt Count Seg Neutrophils % Lymphocytes % Monocytes % Eosinophils % Basophils % Absolute Neutrophils Absolute Lymphocytes Absolute Monocytes Absolute Eosinophils Absolute Basophils Sodium 133.7 L Potassium 3.0 L* Chloride 95 L Carbon Dioxide 27 Anion Gap 12 BUN 12 Creatinine 0.72 Est GFR ( Amer) > 60 Est GFR (Non-Af Amer) > 60 Glucose 65 L Calcium 7.9 L Magnesium 1.0 L* Total Bilirubin 0.4 AST 25 ALT 26 Alkaline Phosphatase 76 Total Protein 5.8 L Albumin 2.9 L 04/18/18 04/19/18 16:30 06:22 Troponin I < 0.012 NT-Pro-B Natriuret Pep 657 Impressions: Chest X-Ray 04/18/18 12:20 IMPRESSION: Mass versus infiltrate in the left upper lobe. Chest/Abdomen CTA 04/18/18 13:03 IMPRESSION: Extensive left upper lobe infiltrate with possible cavitation. Underlying mass is still in the differential. No hilar or mediastinal masses. Assessment & Plan - Diagnosis (1) Pneumonia Qualifiers: Pneumonia type: due to unspecified organism Laterality: left Lung location: upper lobe of lung Qualified Code(s): J18.1 - Lobar pneumonia, unspecified organism Is this a current diagnosis for this admission?: Yes Plan: Ct with Levaquin 750 mg qd IV; add Clindamycin 300mg q8h IV for additional anaerobic coverage as recommended. Lactobacillus 500 mg BID PO;Ct with Tylenol 650 mg q6h prn po; f/u sputum and blood cultures. (2) Cavitary lesion of lung Is this a current diagnosis for this admission?: Yes Plan: Ct with Airborne isolation; F/u sputum AFB x3 results. (3) Hypokalemia Is this a current diagnosis for this admission?: Yes Plan: He was given KCL 20 MEQ IVx2 doses; we added KCL 20 MEQ qd po; monitor chemistries daily. (4) DM2 (diabetes mellitus, type 2) Is this a current diagnosis for this admission?: Yes Plan: Ct with accucheck QAC, QHS with slidding scale with humalog insulin [facility] protocol ; Ct Lantus insulin 15 iu BID subcut; 1800 calorie ADA diet. (5) Hypomagnesemia Is this a current diagnosis for this admission?: Yes Plan: He was given Mg sulfate 4g IVx1; we increased Mg oxide to 800 mg BID PO. Monitor Mg level daily. (6) HTN (hypertension) Qualifiers: Is this a current diagnosis for this admission?: Yes Plan: Ct with Lisinopril 20 mg qd po; 2 g sodium diet. (7) Hyperlipidemia Qualifiers: Hyperlipidemia type: mixed hyperlipidemia Qualified Code(s): E78.2 - Mixed hyperlipidemia Is this a current diagnosis for this admission?: Yes Plan: Ct with Simvastatin 20 mg qhs po; 200 mg cholesterol diet. (8) GERD (gastroesophageal reflux disease) Qualifiers: Esophagitis presence: esophagitis presence not specified Qualified Code(s) : K21.9 - Gastro-esophageal reflux disease without esophagitis Is this a current diagnosis for this admission?: Yes Plan: Ct with Prevacid 30 mg qd po since we do not have Omeprazole in our formulary (9) Diabetic neuropathy Qualifiers: Diabetes mellitus type: type 2 Diabetes mellitus complication detail: diabetic polyneuropathy Qualified Code(s): E11.42 - Type 2 diabetes mellitus with diabetic polyneuropathy Is this a current diagnosis for this admission?: Yes Plan: Ct with Gabapentin 300 mg TID po. (10) COPD (chronic obstructive pulmonary disease) Qualifiers: Emphysema type: panlobular Is this a current diagnosis for this admission?: Yes Plan: Ct with oxygen by N/C 2 L/min; Albuterol nebs 2.5 mg q3h prn; Advair 250/50 1 BID. (11) PAD (peripheral artery disease) Is this a current diagnosis for this admission?: Yes Plan: Ct with Pentoxifylline 300 mg q8h po; smoking cessation counseling. (12) Tobacco dependence Is this a current diagnosis for this admission?: Yes Plan: Pt counseled on smoking cessation; ct with Nicotine patch 21 mg qd . (13) DVT prophylaxis Is this a current diagnosis for this admission?: Yes Plan: Ct with Lovenox 40 mg qd subcut; SCD
[2018-04-21] MEDS ORDERED: LEVOFLOXACIN 750 MG/D5W RTU 750 MG/150 ML RTUPB IV SCH ×2 (18:00→22:00)
[2018-04-21] MEDS: ROPINIROLE HCL 1 MG TABLET PO SCH (22:05)
[2018-04-21] MEDS: SIMVASTATIN 40 MG TABLET PO SCH (22:05)
[2018-04-22] MEDS: GABAPENTIN 300 MG CAPSULE PO SCH ×2 (05:59→13:45)
[2018-04-22] MEDS: PENTOXIFYLLINE 400 MG TABLET.SA PO SCH ×2 (05:59→13:45)
[2018-04-22] MEDS: INSULIN GLARGINE,HUM.REC.ANLOG 300 UNIT/3 ML INSULN.PEN SUBCUT SCH (05:59)
[2018-04-22] MEDS: LANSOPRAZOLE 30 MG TAB.RAP.DR PO SCH (05:59)
[2018-04-22] MEDS: CLINDAMYCIN 300 MG/D5W RTU 300 MG/50 ML RTUPB IV SCH ×2 (05:59→13:45)
[2018-04-22 06:35] LABS: ABSOLUTE EOSINOPHILS # (AUTO) 0.1 10^3/uL (0.0-0.6); ABSOLUTE LYMPHOCYTES (AUTO) 0.8 10^3/uL (0.5-4.7); ABSOLUTE MONOCYTES (AUTO) 0.6 10^3/uL (0.1-1.4); BASOPHILS % (AUTO) 0.2 % (0-2); EOSINOPHILS % (AUTO) 2.3 % (0-6); HEMOGLOBIN 11.3 g/dL (13.5-17.0); LYMPHOCYTES % (AUTO) 14.7 % (13-45); MEAN CORPUSCULAR HGB CONC 34.3 g/dL (32.0-36.0); MEAN CORPUSCULAR VOLUME 88 fl (80-97); MONOCYTES % (AUTO) 11.2 % (3-13); PLATELET COUNT 223 10^3/uL (150-450); RED BLOOD COUNT 3.77 10^6/uL (4.35-5.55); RED CELL DISTRIBUTION WIDTH 15.7 % (11.5-14.0); SEGMENTED NEUTROPHILS % (AUTO) 71.6 % (42-78); TOTAL CELLS COUNTED % (AUTO) 100 %; WHITE BLOOD COUNT 5.6 10^3/uL (4.0-10.5)
[2018-04-22 06:56] LABS: ALANINE AMINOTRANSFERASE 20 U/L (21-72); ALBUMIN 2.7 g/dL (3.5-5.0); ALKALINE PHOSPHATASE 72 U/L (38-126); ANION GAP 10 (5-19); ASPARTATE AMINO TRANSFERASE 21 U/L (17-59); BILIRUBIN,DIRECT 0.4 mg/dL (0.0-0.4); BILIRUBIN,TOTAL 0.4 mg/dL (0.2-1.3); BLOOD UREA NITROGEN 11 mg/dL (7-20); CALCIUM 7.7 mg/dL (8.4-10.2); CARBON DIOXIDE 29 mmol/L (22-30); CHLORIDE 96 mmol/L (98-107); GLUCOSE 144 mg/dL (75-110); POTASSIUM 3.5 mmol/L (3.6-5.0); SODIUM 134.5 mmol/L (137-145); TOTAL PROTEIN 5.4 g/dL (6.3-8.2)
[2018-04-22] MEDS: PHOSPHORUS #1 250 MG TABLET PO SCH ×2 (08:10→11:16)
[2018-04-22] MEDS: ENOXAPARIN SODIUM INJ 40 MG/0.4 ML DISP.SYRIN SUBCUT SCH (08:10)
[2018-04-22] MEDS: INSULIN LISPRO 100 UNIT/ML 3 ML VIAL SUBCUT PRN (08:10)
[2018-04-22] MEDS: POTASSIUM CHLORIDE 20 MEQ/15 ML UDCUP PO SCH (11:14)
[2018-04-22] MEDS: CETIRIZINE 10 MG TABLET PO SCH (11:15)
[2018-04-22] MEDS: MAGNESIUM OXIDE 400 MG TABLET PO SCH (11:15)
[2018-04-22] MEDS: LACTOBACILLUS ACIDOPHILUS 250 MG TAB PO SCH (11:15)
[2018-04-22] MEDS: FLUTICASONE/SALMETEROL DISKUS 250-50 MCG/DOSE IH SCH (11:17)
--- NOTE | 2018-04-22 12:55 | PDOC DISCHARGE SUMMARY ---
General - Admit/Disc Date/PCP Admission Date/Primary Care Provider: 04/18/18 16:17 CYNTHIA LÓPEZ Discharge Date: 04/22/18 - Discharge Diagnosis (1) Pneumonia Is this a current diagnosis for this admission?: Yes (2) Cavitary lesion of lung Is this a current diagnosis for this admission?: Yes (3) Hypokalemia Is this a current diagnosis for this admission?: Yes (4) DM2 (diabetes mellitus, type 2) Is this a current diagnosis for this admission?: Yes (5) Hypomagnesemia Is this a current diagnosis for this admission?: Yes (6) HTN (hypertension) Is this a current diagnosis for this admission?: Yes (7) Hyperlipidemia Is this a current diagnosis for this admission?: Yes (8) GERD (gastroesophageal reflux disease) Is this a current diagnosis for this admission?: Yes (9) Diabetic neuropathy Is this a current diagnosis for this admission?: Yes (10) COPD (chronic obstructive pulmonary disease) Is this a current diagnosis for this admission?: Yes (11) PAD (peripheral artery disease) Is this a current diagnosis for this admission?: Yes (12) Tobacco dependence Is this a current diagnosis for this admission?: Yes (13) DVT prophylaxis Is this a current diagnosis for this admission?: Yes - Additional Information Resuscitation Status: Full Code Prescriptions: Levofloxacin [Levaquin 500 mg Tablet] 500 mg PO DAILY #7 tablet Magnesium Oxide 400 mg PO DAILY #30 tablet Magnesium Oxide [Mag-Ox 400 mg Tablet] 400 mg PO DAILY 30 Days tablet Potassium Chloride 10 meq PO DAILY #30 tablet.er Home Medications: Albuterol Sulfate [Proair HFA Inhalation Aerosol 8.5 gm MDI] 2 puff IH Q4HP PRN 03/14/17 Cetirizine HCl [Zyrtec 10 mg Tablet] 10 mg PO DAILY 03/14/17 Fluticasone/Salmeterol [Advair 250-50 Diskus 14 Dose/Diskus] 1 puff IH Q12 03/14 Gabapentin [Neurontin 300 mg Capsule] 300 mg PO Q8 03/14/17 Insulin Glargine,Hum.rec.anlog [Lantus Solostar] 25 units SQ BID 03/14/17 Lisinopril [Prinivil] 20 mg PO DAILY 03/14/17 Omeprazole 40 mg PO BID 03/14/17 Pentoxifylline [Trental 400 mg Tablet.sa] 400 mg PO Q8 03/14/17 Ropinirole HCl 1.5 mg PO QHS 03/14/17 Simvastatin [Zocor 20 mg Tablet] 20 mg PO QHS 03/14/17 Aspirin [Aspirin 81 mg Chewable Tablet] 81 mg PO DAILY 04/19/18 Insulin Aspart [Novolog Flexpen] 2 unit SQ MEALS 04/19/18 Oxycodone HCl/Acetaminophen [Percocet 5-325 mg Tablet] 1 tab PO Q8HP PRN Levofloxacin [Levaquin 500 mg Tablet] 500 mg PO DAILY #7 tablet 04/22/18 Magnesium Oxide 400 mg PO DAILY #30 tablet 04/22/18 Magnesium Oxide [Mag-Ox 400 mg Tablet] 400 mg PO DAILY 30 Days tablet 04/22/18 Potassium Chloride 10 meq PO DAILY #30 tablet.er 04/22/18 History of Present Illness History of Present Illness: JEYSON HELLER is a 57 year old male with hx of DM/HTN/Hyperlipidemia/COPD/GERD/ PAD/RLS/Backpain/ Chronic smoker, who was admitted to [facility] by hospitalist for Pneumonia/Left upper lobe cavitory lesion/Hypomagnesemia/Hypokalemia. Hospital Course Hospital Course: 57 year old man who was admitted to [facility] for community acquired pneumonia/left upper lobe cavitory lesion/Hypomagnesemia/Hypokalemia. He was put on IV Levaquin and and later Clindamycin for more anaerobic coverage as recommended. We got ID consult from Dr Riley from [facility] and pulmonary consult from Dr Silverman. We appreciate their inputs in the management of this patent. He was placed on Airborne isolation.He had 3 sets of sputum AFB that were negative.He was given several courses of KCL IV and KCL 20 MED qd po. he also received Mg sulfate 40 Mg IV and Mg oxide 800 mg BID PO. His potassium on discharge is 3.5 and magnesium was 1.9. His sputum culture showed gram negative rods. We will discharge him home on Levaquin for that pending final sensitivity pattern. He will discharged home on KCL 10 MEQ and Mg oxide 400 mg qd in addition to his other home medications.Extensive counseling was done on dietary mgt of diabetes and smoking cessation counseling.He will be seen in the office within 1 week for transition of care. Pt and his are in agreement with this parra of care. Physical Exam Vital Signs: Temp Pulse Resp BP Pulse Ox 98.0 F 95 16 106/59 L 100 04/22/18 08:43 04/22/18 08:43 04/22/18 08:43 04/22/18 08:43 04/22/18 08:43 Intake & Output 04/21/18 04/22/18 04/23/18 06:59 06:59 06:59 Intake Total 1977 2023 Output Total 175 575 Balance 1803 1449 Weight 53.3 kg 55.9 kg General appearance: PRESENT: no acute distress, cooperative, well-developed, well-nourished Head exam: PRESENT: atraumatic, normocephalic Eye exam: PRESENT: EOMI Ear exam: PRESENT: normal external ear exam, TM's normal bilaterally Mouth exam: PRESENT: moist, neck supple, tongue midline Neck exam: PRESENT: full ROM Respiratory exam: PRESENT: decreased breath sounds, symmetrical Cardiovascular exam: PRESENT: +S1, +S2 Pulses: PRESENT: +2 pedal pulses bilateral GI/Abdominal exam: PRESENT: normal bowel sounds, soft Rectal exam: PRESENT: deferred Extremities exam: PRESENT: full ROM Musculoskeletal exam: PRESENT: full ROM Neurological exam: PRESENT: alert, awake, oriented to person, oriented to place , oriented to time Psychiatric exam: PRESENT: normal mood Results Laboratory Results: 04/22/18 06:03 04/22/18 06:03 04/22/18 04/22/18 06:03 06:03 WBC 5.6 RBC 3.77 L Hgb 11.3 L Hct 33.0 L MCV 88 MCH 30.0 MCHC 34.3 RDW 15.7 H Plt Count 223 Seg Neutrophils % 71.6 Lymphocytes % 14.7 Monocytes % 11.2 Eosinophils % 2.3 Basophils % 0.2 Absolute Neutrophils 4.0 Absolute Lymphocytes 0.8 Absolute Monocytes 0.6 Absolute Eosinophils 0.1 Absolute Basophils 0.0 Sodium 134.5 L Potassium 3.5 L Chloride 96 L Carbon Dioxide 29 Anion Gap 10 BUN 11 Creatinine 0.77 Est GFR ( Amer) > 60 Est GFR (Non-Af Amer) > 60 Glucose 144 H Calcium 7.7 L Magnesium 1.9 Total Bilirubin 0.4 AST 21 ALT 20 L Alkaline Phosphatase 72 Total Protein 5.4 L Albumin 2.7 L 06/30/18 07/01/18 16:30 06:22 Troponin I < 0.012 NT-Pro-B Natriuret Pep 657 Impressions: Chest X-Ray 04/18/18 12:20 IMPRESSION: Mass versus infiltrate in the left upper lobe. Chest/Abdomen CTA 04/18/18 13:03 IMPRESSION: Extensive left upper lobe infiltrate with possible cavitation. Underlying mass is still in the differential. No hilar or mediastinal masses. Qualifiers - * PATIENT BEING DISCHARGED WITH ANY OF THE FOLLOWING DIAGNOSIS: No
[2018-04-22 13:04] VITALS: BP 119/63
[2018-04-22] MEDS: LISINOPRIL 10 MG TABLET PO SCH (13:45)
== END 2018-04-22 13:51 | disposition home or self-care (01) | DRG 195 ==
LOC: ER 12:09 → UNDOADMIN 16:17 → EH 16:17 → 3S 18:49
PROVIDERS: ADMIT Internal Medicine; ATTEND Internal Medicine
DX: J18.1 Lobar pneumonia, unspecified organism (principal); A15.0 Tuberculosis of lung; I95.9 Hypotension, unspecified; E11.40 Type 2 diabetes mellitus with diabetic neuropathy, unspecified; E83.42 Hypomagnesemia; E83.39 Other disorders of phosphorus metabolism; E78.00 Pure hypercholesterolemia, unspecified; E87.6 Hypokalemia; I10 Essential (primary) hypertension; J44.9 Chronic obstructive pulmonary disease, unspecified; K21.9 Gastro-esophageal reflux disease without esophagitis; K58.9 Irritable bowel syndrome, unspecified; F17.210 Nicotine dependence, cigarettes, uncomplicated; Z79.4 Long term (current) use of insulin; Z79.51 Long term (current) use of inhaled steroids; Z79.899 Other long term (current) drug therapy; Z71.6 Tobacco abuse counseling
CPT/HCPCS: 36415; 71045; 71275; 80053; 80307; 81001; 82550; 82803; 82962; 83036; 83605; 83690; 83735; 83880; 84100; 84443; 84484; 85025; 85610; 85730; 86480; 87015; 87040; 87070; 87077; 87116; 87186; 87205; 87206; 93005; 93010; 96361; 96365; 96375; 99291; J1650; J1815; J1956; J3475; J3480; J3490; J7030; S0119

== ENCOUNTER 2018-07-03 06:21 | Emergency (ER) | payer OTHER, MEDICARE, MEDICAID ==
[2018-07-03] MEDS ORDERED: NORMAL SALINE 1000 ML 1,000 ML IV ONE (06:32)
[2018-07-03] MEDS ORDERED: IPRATROPIUM/ALBUTEROL 0.5-2.5 MG/3 ML AMPUL NEB ONE (06:38)
[2018-07-03] MEDS ORDERED: DEXTROSE 50%-WATER 25 GM/50 ML DISP.SYRIN IV ONE ×2 (06:39)
[2018-07-03 06:45] LABS: ABSOLUTE EOSINOPHILS # (AUTO) 0.2 10^3/uL (0.0-0.6); ABSOLUTE LYMPHOCYTES (AUTO) 1.2 10^3/uL (0.5-4.7); ABSOLUTE MONOCYTES (AUTO) 0.8 10^3/uL (0.1-1.4); ABSOLUTE NEUT (AUTO) 10.6 10^3/uL (1.7-8.2); BASOPHILS % (AUTO) 0.4 % (0-2); EOSINOPHILS % (AUTO) 1.9 % (0-6); HEMATOCRIT 35.3 % (37.9-51.0); HEMOGLOBIN 11.5 g/dL (13.5-17.0); MEAN CORPUSCULAR HEMOGLOBIN 29.6 pg (27.0-33.4); MEAN CORPUSCULAR HGB CONC 32.5 g/dL (32.0-36.0); MEAN CORPUSCULAR VOLUME 91 fl (80-97); MONOCYTES % (AUTO) 6.4 % (3-13); PLATELET COUNT 279 10^3/uL (150-450); RED BLOOD COUNT 3.88 10^6/uL (4.35-5.55); RED CELL DISTRIBUTION WIDTH 15.4 % (11.5-14.0); SEGMENTED NEUTROPHILS % (AUTO) 82.3 % (42-78); TOTAL CELLS COUNTED % (AUTO) 100 %; WHITE BLOOD COUNT 12.9 10^3/uL (4.0-10.5)
--- NOTE | 2018-07-03 06:50 | ER Document Report ---
ED General - General Chief Complaint: Unresponsive Stated Complaint: UNRESPONSIVE Time Seen by Provider: 07/03/18 06:28 Mode of Arrival: Stretcher TRAVEL OUTSIDE OF THE [place] IN LAST 30 DAYS: No - HPI Patient complains to provider of: Unresponsive Onset: This morning - This 57-year-old insulin-dependent diabetic presents for evaluation from the retirement for evaluation of being unresponsive. He was found down with an episode of shaking and potentially seizing this morning at which time his blood sugar was checked was approximately 40 he was thereafter transported via truck to the hospital, upon arrival he was obtunded unresponsive. Deputies had no further information. - Related Data Allergies/Adverse Reactions: No Known Allergies Allergy (Verified 04/18/18 12:13) Past Medical History - General Information source: Patient, Law Enforcement Cannot obtain history due to: Altered mental status - Social History Smoking Status: Current Every Day Smoker Family History: CAD, DM, Hyperlipidemia, Hypertension, Malignancy - Past Medical History Cardiac Medical History: Reports: Hx Hypercholesterolemia, Hx Hypertension Pulmonary Medical History: Reports: Hx COPD Neurological Medical History: Denies: Hx Seizures Endocrine Medical History: Reports: Hx Diabetes Mellitus Type 2 Renal/ Medical History: Denies: Hx Peritoneal Dialysis GI Medical History: Reports: Hx Gastroesophageal Reflux Disease, Hx Irritable Bowel - constipation type. Denies: Hx Crohn's Disease, Hx Ulcerative Colitis Musculoskeletal Medical History: Denies Hx Fibromyalgia Skin Medical History: Denies Hx Psoriasis Psychiatric Medical History: Denies: Hx Depression Traumatic Medical History: Denies: Hx Traumatic Brain Injury Infectious Medical History: Denies: Hx C-Diff Past Surgical History: Reports: Hx Orthopedic Surgery - Immunizations Immunizations up to date: Yes Hx Diphtheria, Pertussis, Tetanus Vaccination: Yes - unk Hx Pneumococcal Vaccination: 07/20/18 Review of Systems - Review of Systems -: Yes ROS unobtainable due to patient's medical condition Physical Exam - Vital signs Vitals: Pulse Resp BP Pulse Ox 89 18 154/71 H 100 07/03/18 06:22 07/03/18 06:22 07/03/18 06:22 07/03/18 06:22 - General General appearance: Unresponsive In distress: Moderate - HEENT Head: Normocephalic Eyes: Normal Conjunctiva: Normal Cornea: Normal Extraocular movements intact: Yes Pupils: PERRL - Respiratory Respiratory status: Agonal respirations Chest status: Nontender Breath sounds: Rhonchi - In the inferior lung craig Chest palpation: Normal - Cardiovascular Rhythm: Regular Heart sounds: Normal auscultation Murmur: No - Abdominal Inspection: Normal Distension: No distension Tenderness: Nontender Organomegaly: No organomegaly - Back Back: Normal - Extremities General upper extremity: Normal inspection, Nontender, Normal strength General lower extremity: Normal inspection, Nontender, Normal ROM, Normal strength - Neurological Neuro grossly intact: No - obtunded Cognition: Other - unresponsive Orientation: Disoriented to person, Disoriented to place, Disoriented to time, Disoriented to events Artem Coma Scale Eye Opening: To Voice Artem Coma Scale Verbal: Incomprehensible Artem Coma Scale Motor: Localizes to Pain Artem Coma Scale Total: 10 - Psychological Associated symptoms: Uncooperative Course - Re-evaluation Re-evalutation: 07/03/18 06:54 This gentleman presented unresponsive from retirement in the setting of a low blood sugar. He was found potentially seizing on the ground with an unknown downtime. He was emergently transported to the trauma bay, his clothes were emergently removed as he had longjohns on, he was subsequently given 1 amp of D50 through a peripheral IV which was placed emergently. He also had a second IV placed on the opposite side, his initial blood glucose was 28. On repeat it was 200 he was subsequently given one half of an amp of D50. As his initial blood pressure seemed to be in the 90 systolic range in the setting of being unresponsive initiated later bolus with normal saline through peripheral IV. Following administration of normal saline and 1.5 A of D50 patient became increasingly responsive, he was verbal, he was able to state that he had gone out. Denied any precipitating event. Has no recollection whether he ate appropriately after he got his medications he does note that he does use 2 types of insulin normally. On reassessment patient's GCS is now 15, he is fully responsive. In speaking to he and the deputy it is noted that he likely did not take his normal evening meal last night because of it containing rye bread which he says upsets his stomach. We will plan for patient to undergo a period of observation in the emergency department at this time, ensure that he is able to eat and drink and maintain a normal blood glucose. If he is able to maintain a reasonable blood glucose he will be discharged back into the custody of the retirement. - Vital Signs Vital signs: Temp Pulse Resp BP Pulse Ox 89 19 169/92 H 93 07/03/18 06:22 07/03/18 07:31 07/03/18 07:16 07/03/18 07:31 - Laboratory Result Diagrams: 07/03/18 06:25 07/03/18 06:25 Laboratory results interpreted by me: 07/03/18 07/03/18 06:25 06:25 WBC 12.9 H RBC 3.88 L Hgb 11.5 L Hct 35.3 L RDW 15.4 H Seg Neutrophils % 82.3 H Lymphocytes % 9.0 L Absolute Neutrophils 10.6 H Potassium 3.3 L Carbon Dioxide 32 H BUN 23 H Glucose 139 H Albumin 3.4 L Lipase 22.8 L Critical Care Note - Critical Care Note Total time excluding time spent on procedures (mins): 35 Discharge - Discharge Clinical Impression: Hypoglycemia, Unresponsive Condition: Good Disposition: HOME, SELF-CARE Instructions: Hypoglycemia ([facility]) Additional Instructions: Your seen in the emergency department for your episode of hypoglycemia. It is important that you eat an evening time snack. This should not give you rye bread as it upsets your stomach, they should give you something which you can eat at night. Continue your normal dosing of medications as previously directed. Referrals: CYNTHIA LÓPEZ MD [Primary Care Provider] - Follow up as needed
[2018-07-03 06:53] LABS: ALANINE AMINOTRANSFERASE 32 U/L (21-72); ALBUMIN 3.4 g/dL (3.5-5.0); ALKALINE PHOSPHATASE 78 U/L (38-126); ANION GAP 6 (5-19); ASPARTATE AMINO TRANSFERASE 28 U/L (17-59); BILIRUBIN,DIRECT 0.2 mg/dL (0.0-0.4); BILIRUBIN,TOTAL 0.2 mg/dL (0.2-1.3); BLOOD UREA NITROGEN 23 mg/dL (7-20); CALCIUM 9.3 mg/dL (8.4-10.2); CARBON DIOXIDE 32 mmol/L (22-30); CHLORIDE 103 mmol/L (98-107); CREATINE KINASE 55 U/L (55-170); GLUCOSE 139 mg/dL (75-110); LIPASE 22.8 U/L (23-300); POTASSIUM 3.3 mmol/L (3.6-5.0); SODIUM 140.9 mmol/L (137-145); TOTAL PROTEIN 6.5 g/dL (6.3-8.2)
--- NOTE | 2018-07-03 06:55 | RADIOLOGY REPORT (SQ) ---
EXAM DESCRIPTION: CHEST SINGLE VIEW COMPLETED DATE/TIME: 07/03/2018 6:45 am REASON FOR STUDY: possible aspiration COMPARISON: AP chest 04/18/2018, 06/09/2017 CT angio chest 04/18/2018 EXAM PARAMETERS: NUMBER OF VIEWS: One view. TECHNIQUE: Single frontal radiographic view of the chest acquired. RADIATION DOSE: NA LIMITATIONS: Motion artifact FINDINGS: LUNGS AND PLEURA: No acute infiltrates. No pleural effusion or pneumothorax. Calcified g ranulomas and lung parenchymal scarring in the lingula and left lung apex. MEDIASTINUM AND HILAR STRUCTURES: No masses. Contour normal. HEART AND VASCULAR STRUCTURES: Heart normal in size. Normal vasculature. BONES: No acute findings. HARDWARE: None in the chest. OTHER: No other significant finding. IMPRESSION: Chronic scarring. No acute changes TECHNICAL DOCUMENTATION: JOB ID: [id number] [facility]- All Rights Reserved Reading location - IP/workstation name: [email or web address]
[2018-07-03 07:44] LABS: VENOUS BLOOD BASE EXCESS 2.9 mmol/L; VENOUS BLOOD HCO3 28.7 mmol/L (20-32); VENOUS BLOOD PCO2 48.9 mmHg (35-63); VENOUS BLOOD PH 7.39 (7.30-7.42)
[2018-07-03 08:53] VITALS: BP 163/90
== END 2018-07-03 08:53 | disposition home or self-care (01) ==
LOC: ER 06:21
DX: E11.649 Type 2 diabetes mellitus with hypoglycemia without coma (principal); Z79.4 Long term (current) use of insulin; J44.9 Chronic obstructive pulmonary disease, unspecified; I10 Essential (primary) hypertension; F17.200 Nicotine dependence, unspecified, uncomplicated
CPT/HCPCS: 36415; 71045; 80053; 82550; 82803; 82962; 83690; 84484; 85025; 96360; 99291

== ENCOUNTER 2018-07-22 11:33 | Emergency (ER) | payer OTHER, MEDICARE, MEDICAID ==
[2018-07-22] MEDS ORDERED: KETOROLAC TROMETHAMINE 10 MG TABLET PO ONE (12:20)
--- NOTE | 2018-07-22 12:23 | ER Document Report ---
ED Head/Face/Scalp Injury - General Chief Complaint: Head Injury without LOC Stated Complaint: FALL/HEAD PAIN Time Seen by Provider: 07/22/18 12:20 Mode of Arrival: Ambulatory Information source: Patient Notes: Chief complaint: Upper back pain History of complain:( obtained from----patient) 57 years old male slipped and fell on his back just prior to arrival since then having pain over the mid thoracic region the back. Denies any head injury loss of consciousness. Denies any current headache neck pain neck stiffness. Denies any focal weakness numbness tingling sensation. Denies any difficulty in breathing. Denies any nausea vomiting. Denies any lower back pain. Onset: Sudden Duration: Just prior to arrival Severity: Mild to moderate Quality: Sharp Context: As above Exacerbating factor and relieving factors: Change of position REVIEW OF SYSTEMS: CONSTITUTIONAL : Denies fever, chills, or sweats. Denies recent illness. EENT: Denies eye, ear, throat, or mouth pain or symptoms. Denies nasal or sinus congestion or discharge. Denies throat, tongue, or mouth swelling or difficulty swallowing. CARDIOVASCULAR: Denies chest pain. Denies palpitations or racing or irregular heart beat. Denies ankle edema. RESPIRATORY: Denies cough, cold, or chest congestion. Denies shortness of breath, difficulty breathing, or wheezing. GASTROINTESTINAL: Denies distention. Denies nausea, vomiting, or diarrhea. Denies blood in vomitus, stools, or per rectum. Denies black, tarry stools. Denies constipation. GENITOURINARY: Denies difficulty urinating, painful urination, burning, frequency, blood in urine, or discharge. FEMALE GENITOURINARY: Denies vaginal bleeding, heavy or abnormal periods, irregular periods. Denies vaginal discharge or odor. MUSCULOSKELETAL: Denies back or neck pain or stiffness. Denies joint pain or swelling. SKIN: Denies rash, lesions or sores. HEMATOLOGIC : Denies easy bruising or bleeding. LYMPHATIC: Denies swollen, enlarged glands. NEUROLOGICAL: Denies confusion or altered mental status. Denies passing out or loss of consciousness. Denies dizziness or lightheadedness. Denies headache. Denies weakness or paralysis or loss of use of either side. Denies problems with gait or speech. Denies sensory loss, numbness, or tingling. Denies seizures. PSYCHIATRIC: Denies anxiety or stress. Denies depression, suicidal ideation, or homicidal ideation. ALL OTHER SYSTEMS REVIEWED AND NEGATIVE. PHYSICAL EXAMINATION: GENERAL: Well-appearing, well-nourished and in no acute distress. HEAD: Atraumatic, normocephalic. EYES: Pupils equal round and reactive to light, extraocular movements intact, conjunctiva are normal. ENT: Nares patent, oropharynx clear without exudates. Moist mucous membranes. NECK: Normal range of motion, supple without lymphadenopathy LUNGS: Breath sounds clear to auscultation bilaterally and equal. No wheezes rales or rhonchi. HEART: Regular rate and rhythm without murmurs ABDOMEN: Soft, nontender, nondistended abdomen. No guarding, no rebound. No masses appreciated. Examination of genitals-deferred Musculoskeletal: Normal range of motion, no pitting or edema. No cyanosis. Examination of the [id number] region tenderness were noted. Examination of the cervical spine-no tenderness noted no paraspinal tenderness normal range of motion for flexion extension abduction abduction and rotation. NEUROLOGICAL: Cranial nerves grossly intact. Normal speech, normal gait. Normal sensory, motor exams PSYCH: Normal mood, normal affect. SKIN: Warm, Dry, normal turgor, no rashes or lesions noted. Dictation was performed using [employer] voice recognition software TRAVEL OUTSIDE OF THE [place] IN LAST 30 DAYS: No - HPI Notes: Dictated - Related Data Allergies/Adverse Reactions: No Known Allergies Allergy (Verified 04/18/18 12:13) Past Medical History - Social History Smoking Status: Current Every Day Smoker Cigarette use (# per day): No Chew tobacco use (# tins/day): No Smoking Education Provided: No Frequency of alcohol use: Rare Drug Abuse: None Lives with: Other Family History: CAD, DM, Hyperlipidemia, Hypertension, Malignancy Patient has suicidal ideation: No Patient has homicidal ideation: No - Past Medical History Cardiac Medical History: Reports: Hx Hypercholesterolemia, Hx Hypertension Pulmonary Medical History: Reports: Hx COPD Neurological Medical History: Denies: Hx Seizures Endocrine Medical History: Reports: Hx Diabetes Mellitus Type 2 Renal/ Medical History: Denies: Hx Peritoneal Dialysis GI Medical History: Reports: Hx Gastroesophageal Reflux Disease, Hx Irritable Bowel - constipation type. Denies: Hx Crohn's Disease, Hx Ulcerative Colitis Musculoskeletal Medical History: Denies Hx Fibromyalgia Skin Medical History: Denies Hx Psoriasis Psychiatric Medical History: Denies: Hx Depression Traumatic Medical History: Denies: Hx Traumatic Brain Injury Infectious Medical History: Denies: Hx C-Diff Past Surgical History: Reports: Hx Orthopedic Surgery - left foot - Immunizations Immunizations up to date: Yes Hx Diphtheria, Pertussis, Tetanus Vaccination: Yes - unk Hx Pneumococcal Vaccination: 07/20/18 Review of Systems - Review of Systems Notes: Dictated Physical Exam - Vital signs Vitals: Temp Pulse Resp BP Pulse Ox 97.7 F 88 18 180/83 H 98 07/22/18 11:38 07/22/18 11:38 07/22/18 11:38 07/22/18 11:38 07/22/18 11:38 - Notes Notes: Dictated Course - Re-evaluation Re-evalutation: 07/22/18 12:23 Dictated - Vital Signs Vital signs: Temp Pulse Resp BP Pulse Ox 97.7 F 88 18 180/83 H 98 07/22/18 11:38 07/22/18 11:38 07/22/18 11:38 07/22/18 11:38 07/22/18 11:38 - Diagnostic Test Radiology reviewed: Reports reviewed - Reported by radiologist as no evidence of fracture Discharge - Discharge Clinical Impression: Upper back pain Fall Qualifiers: Encounter type: initial encounter Qualified Code(s): W19.XXXA - Unspecified fall, initial encounter Condition: Fair Disposition: HOME, SELF-CARE Instructions: Low Back Pain ([facility]) Prescriptions: Ibuprofen 600 mg PO TID #30 tablet Referrals: CYNTHIA LÓPEZ MD [Primary Care Provider] - Follow up as needed
--- NOTE | 2018-07-22 13:14 | RADIOLOGY REPORT (SQ) ---
EXAM DESCRIPTION: T SPINE AP/LAT COMPLETED DATE/TIME: 07/22/2018 12:47 pm REASON FOR STUDY: Pain in injury COMPARISON: None. NUMBER OF VIEWS: Two views. TECHNIQUE: AP and lateral radiographic images acquired of the thoracic spine. LIMITATIONS: None. FINDINGS: MINERALIZATION: Normal. ALIGNMENT: Normal. No scoliosis. VERTEBRAE: Mild height loss at several levels in the mid and lower spine, not significantly changed f rom 04/18/2018. DISCS: Multilevel disc space narrowing with osteophytes. HARDWARE: None in the spine. MEDIASTINUM AND SOFT TISSUES: Normal heart size and aortic contour. No soft tissue abnormality. VISUALIZED LUNG FLORES: Clear. OTHER: No other significant finding. IMPRESSION: No evidence of acute compression fracture. TECHNICAL DOCUMENTATION: JOB ID: [id number] [employer]- All Rights Reserved Reading location - IP/workstation name: [email or web address]
[2018-07-22 13:38] VITALS: BP 136/81
== END 2018-07-22 13:36 | disposition home or self-care (01) ==
LOC: ER 11:33
DX: M54.6 Pain in thoracic spine (principal); W01.0XXA Fall on same level from slipping, tripping and stumbling without subsequent striking against object, initial encounter; Y92.142 Bathroom in prison as the place of occurrence of the external cause; F17.200 Nicotine dependence, unspecified, uncomplicated; I10 Essential (primary) hypertension; J44.9 Chronic obstructive pulmonary disease, unspecified; E11.9 Type 2 diabetes mellitus without complications
CPT/HCPCS: 99283; 72070; J3490

== ENCOUNTER 2018-07-23 06:11 | Emergency (ER) | payer OTHER, MEDICARE, MEDICAID ==
--- NOTE | 2018-07-23 06:35 | ER Document Report ---
ED General - General Stated Complaint: BLOOD SUGAR ISSUE Time Seen by Provider: 07/23/18 06:22 Mode of Arrival: Ambulatory Information source: Patient Notes: Chief complaint: Confusion History of complain:( obtained from----patient) 57 years old male from incarceration, diabetic, this morning was incoherent and therefore the EMS was called. EMS found his blood sugar to be very low gave D50, subsequent blood sugar was 85. They read a blood sugar of 35 at the time of their arrival. Patient became fully alert and oriented after the D50. Subsequently she was brought to the ED. He claims that he is been given too much of insulin and not enough food. Otherwise has no headache dizziness or any other constitutional symptoms. Currently feeling comfortable. Onset: Just prior to arrival, sudden Duration: As above Severity: Mild Quality: Hypoglycemic Context: Diabetic Exacerbating factor and relieving factors: None REVIEW OF SYSTEMS: CONSTITUTIONAL : Denies fever, chills, or sweats. Denies recent illness. EENT: Denies eye, ear, throat, or mouth pain or symptoms. Denies nasal or sinus congestion or discharge. Denies throat, tongue, or mouth swelling or difficulty swallowing. CARDIOVASCULAR: Denies chest pain. Denies palpitations or racing or irregular heart beat. Denies ankle edema. RESPIRATORY: Denies cough, cold, or chest congestion. Denies shortness of breath, difficulty breathing, or wheezing. GASTROINTESTINAL: Denies distention. Denies nausea, vomiting, or diarrhea. Denies blood in vomitus, stools, or per rectum. Denies black, tarry stools. Denies constipation. GENITOURINARY: Denies difficulty urinating, painful urination, burning, frequency, blood in urine, or discharge. FEMALE GENITOURINARY: Denies vaginal bleeding, heavy or abnormal periods, irregular periods. Denies vaginal discharge or odor. MUSCULOSKELETAL: Denies back or neck pain or stiffness. Denies joint pain or swelling. SKIN: Denies rash, lesions or sores. HEMATOLOGIC : Denies easy bruising or bleeding. LYMPHATIC: Denies swollen, enlarged glands. NEUROLOGICAL: Denies confusion or altered mental status. Denies passing out or loss of consciousness. Denies dizziness or lightheadedness. Denies headache. Denies weakness or paralysis or loss of use of either side. Denies problems with gait or speech. Denies sensory loss, numbness, or tingling. Denies seizures. PSYCHIATRIC: Denies anxiety or stress. Denies depression, suicidal ideation, or homicidal ideation. ALL OTHER SYSTEMS REVIEWED AND NEGATIVE. PHYSICAL EXAMINATION: GENERAL: Well-appearing, well-nourished and in no acute distress. HEAD: Atraumatic, normocephalic. EYES: Pupils equal round and reactive to light, extraocular movements intact, conjunctiva are normal. ENT: Nares patent, oropharynx clear without exudates. Moist mucous membranes. NECK: Normal range of motion, supple without lymphadenopathy LUNGS: Breath sounds clear to auscultation bilaterally and equal. No wheezes rales or rhonchi. HEART: Regular rate and rhythm without murmurs ABDOMEN: Soft, nontender, nondistended abdomen. No guarding, no rebound. No masses appreciated. Examination of genitals-deferred Musculoskeletal: Normal range of motion, no pitting or edema. No cyanosis. NEUROLOGICAL: Cranial nerves grossly intact. Normal speech, normal gait. Normal sensory, motor exams PSYCH: Normal mood, normal affect. SKIN: Warm, Dry, normal turgor, no rashes or lesions noted. Dictation was performed using [employer] voice recognition software TRAVEL OUTSIDE OF THE [place] IN LAST 30 DAYS: No - HPI Notes: Dictated - Related Data Allergies/Adverse Reactions: No Known Allergies Allergy (Verified 04/18/18 12:13) Past Medical History - General Information source: Patient, Law Enforcement, Emergency Med Personnel - Social History Smoking Status: Current Every Day Smoker Cigarette use (# per day): No Chew tobacco use (# tins/day): No Frequency of alcohol use: None Drug Abuse: None Lives with: Other - In the incarceration Family History: Reviewed & Not Pertinent, CAD, DM, Hyperlipidemia, Hypertension , Malignancy - Past Medical History Cardiac Medical History: Reports: Hx Hypercholesterolemia, Hx Hypertension Pulmonary Medical History: Reports: Hx COPD Neurological Medical History: Denies: Hx Seizures Endocrine Medical History: Reports: Hx Diabetes Mellitus Type 2 Renal/ Medical History: Denies: Hx Peritoneal Dialysis GI Medical History: Reports: Hx Gastroesophageal Reflux Disease, Hx Irritable Bowel - constipation type. Denies: Hx Crohn's Disease, Hx Ulcerative Colitis Musculoskeletal Medical History: Denies Hx Fibromyalgia Skin Medical History: Denies Hx Psoriasis Psychiatric Medical History: Denies: Hx Depression Traumatic Medical History: Denies: Hx Traumatic Brain Injury Infectious Medical History: Denies: Hx C-Diff Past Surgical History: Reports: Hx Orthopedic Surgery - left foot - Immunizations Immunizations up to date: Yes Hx Diphtheria, Pertussis, Tetanus Vaccination: Yes - unk Hx Pneumococcal Vaccination: 07/20/18 Review of Systems - Review of Systems Notes: Dictated Physical Exam - Vital signs Vitals: Pulse Resp BP Pulse Ox 76 16 158/80 H 100 07/23/18 06:12 07/23/18 06:12 07/23/18 06:12 07/23/18 06:12 - Notes Notes: Dictated Course - Vital Signs Vital signs: Temp Pulse Resp BP Pulse Ox 76 16 158/80 H 100 07/23/18 06:12 07/23/18 06:12 07/23/18 06:12 07/23/18 06:12 - Laboratory Result Diagrams: 07/23/18 06:45 07/23/18 06:45 Laboratory results interpreted by me: 07/23/18 07/23/18 07/23/18 06:16 06:45 06:45 RBC 3.96 L Hgb 12.3 L Hct 36.1 L RDW 15.6 H Potassium 3.4 L Glucose 73 L POC Glucose 69 L Discharge - Discharge Clinical Impression: Hypoglycemia Type 2 diabetes mellitus Qualifiers: Diabetes mellitus middle or intermediate school principal insulin use: with middle or intermediate school principal use Diabetes mellitus complication status: without complication Qualified Code(s): E11.9 - Type 2 diabetes mellitus without complications; Z79.4 - assisted (current) use of insulin; Z79.4 - assisted (current) use of insulin; Z79.4 - assisted (current ) use of insulin; Z79.4 - middle or intermediate school principal (current) use of insulin Condition: Fair Disposition: HOME, SELF-CARE Instructions: Hypoglycemia ([facility]) Additional Instructions: Hypoglycemia You have suffered an episode of hypoglycemia (low blood sugar). Typical symptoms of hypoglycemia are shaking, sweating, headache, and confusion. When severe, unconsciousness or seizure may occur. Hypoglycemia occurs when a person taking insulin or diabetes pills has a change in the amount of blood sugar available -- due to exercise, decreased food intake, or alcohol. Should you feel symptoms of hypoglycemia again, immediately take some form of sugar such as sweetened juice. As the reaction subsides, eat a complex carbohydrate such as bread. If possible, check your blood sugar using a chemical strip. If episodes are occurring without obvious explanation, contact your physician for further evaluation. Referrals: CYNTHIA LÓPEZ MD [Primary Care Provider] - Follow up as needed
[2018-07-23 06:55] LABS: ABSOLUTE EOSINOPHILS # (AUTO) 0.2 10^3/uL (0.0-0.6); ABSOLUTE LYMPHOCYTES (AUTO) 1.1 10^3/uL (0.5-4.7); ABSOLUTE MONOCYTES (AUTO) 0.6 10^3/uL (0.1-1.4); ABSOLUTE NEUT (AUTO) 4.9 10^3/uL (1.7-8.2); BASOPHILS % (AUTO) 0.6 % (0-2); EOSINOPHILS % (AUTO) 3.3 % (0-6); HEMATOCRIT 36.1 % (37.9-51.0); HEMOGLOBIN 12.3 g/dL (13.5-17.0); MEAN CORPUSCULAR HEMOGLOBIN 31.1 pg (27.0-33.4); MEAN CORPUSCULAR HGB CONC 34.2 g/dL (32.0-36.0); MEAN CORPUSCULAR VOLUME 91 fl (80-97); MONOCYTES % (AUTO) 8.6 % (3-13); PLATELET COUNT 240 10^3/uL (150-450); RED BLOOD COUNT 3.96 10^6/uL (4.35-5.55); RED CELL DISTRIBUTION WIDTH 15.6 % (11.5-14.0); SEGMENTED NEUTROPHILS % (AUTO) 71.5 % (42-78); TOTAL CELLS COUNTED % (AUTO) 100 %; WHITE BLOOD COUNT 6.9 10^3/uL (4.0-10.5)
[2018-07-23 07:07] LABS: ALANINE AMINOTRANSFERASE 41 U/L (21-72); ALBUMIN 3.8 g/dL (3.5-5.0); ALKALINE PHOSPHATASE 73 U/L (38-126); ANION GAP 10 (5-19); ASPARTATE AMINO TRANSFERASE 36 U/L (17-59); BILIRUBIN,DIRECT 0.3 mg/dL (0.0-0.4); BILIRUBIN,TOTAL 0.3 mg/dL (0.2-1.3); BLOOD UREA NITROGEN 18 mg/dL (7-20); CALCIUM 9.5 mg/dL (8.4-10.2); CARBON DIOXIDE 30 mmol/L (22-30); CHLORIDE 104 mmol/L (98-107); GLUCOSE 73 mg/dL (75-110); POTASSIUM 3.4 mmol/L (3.6-5.0); SODIUM 143.7 mmol/L (137-145); TOTAL PROTEIN 7.1 g/dL (6.3-8.2)
[2018-07-23] MEDS ORDERED: LISINOPRIL 10 MG TABLET PO ONE (08:45)
[2018-07-23 09:27] VITALS: BP 202/96
== END 2018-07-23 09:27 | disposition home or self-care (01) ==
LOC: ER 06:11
DX: E11.649 Type 2 diabetes mellitus with hypoglycemia without coma (principal); Z79.4 Long term (current) use of insulin; F17.200 Nicotine dependence, unspecified, uncomplicated; E78.00 Pure hypercholesterolemia, unspecified; I10 Essential (primary) hypertension
CPT/HCPCS: 36415; 80053; 82962; 85025; 99285

== ENCOUNTER → 2019-08-25 | Outpatient (CLI) | payer MEDICARE, MEDICAID ==
--- NOTE | 2019-08-25 15:47 | RADIOLOGY REPORT (SQ) ---
EXAM DESCRIPTION: CHEST PA/LATERAL COMPLETED DATE/TIME: 08/25/2019 3:38 pm REASON FOR STUDY: ACUTE BRONCHITIS, UNSPECIFIED COMPARISON: 03/16/2017 EXAM PARAMETERS: NUMBER OF VIEWS: two views TECHNIQUE: Digital Frontal and Lateral radiographic views of the chest acquired. RADIATION DOSE: NA LIMITATIONS: none FINDINGS: LUNGS AND PLEURA: Chronic pleural-parenchymal changes in the left upper lobe. hyperexpans ion. No consolidation or effusions. No pneumothorax. MEDIASTINUM AND HILAR STRUCTURES: No masses or contour abnormalities. HEART AND VASCULAR STRUCTURES: Heart normal size. No evidence for failure. BONES: No acute findings. HARDWARE: None in the chest. OTHER: No other significant finding. IMPRESSION: Chronic pleural and parenchymal changes. No acute findings. TECHNICAL DOCUMENTATION: JOB ID: [id number] [employer]- All Rights Reserved Reading location - IP/workstation name: [email or web address]
== END ==
LOC: OD 15:14
PROVIDERS: ATTEND Internal Medicine
DX: J20.9 Acute bronchitis, unspecified (principal); J44.0 Chronic obstructive pulmonary disease with (acute) lower respiratory infection; C15.9 Malignant neoplasm of esophagus, unspecified
CPT/HCPCS: 71046; 87070; 87205

== ENCOUNTER 2019-12-29 14:46 | Emergency (ER) | payer MEDICARE, MEDICAID ==
[2019-12-29 14:51] VITALS: BP 138/71
--- NOTE | 2019-12-29 15:56 | ER Document Report ---
ED Medical Screen (RME) - General Chief Complaint: Post Surgical Pain Stated Complaint: LEFT MIDDLE FINGER PAIN Time Seen by Provider: 12/29/19 15:38 Primary Care Provider: CYNTHIA LÓPEZ MD [Primary Care Provider] - Follow up as needed Mode of Arrival: Ambulatory Information source: Patient Notes: 5-year-old male diabetic presents to the emergency department with a left third digit distal injury. Reports 2 months ago he thinks maybe he had a thorn at the end the finger. He saw Dr. Goddard who operated on his finger and removed his fingernail approximately 1 month ago. He was also placed on antibiotics at that time. He reports he followed up with Dr. Goddard 3 weeks ago. He presents today because he reports extreme pain to the finger. Reports he has not slept in 2 days due to the pain. He denies vomiting diarrhea. Reports he believes he has a fever at night. Reports he has noticed some drainage and some blistering at the end of his finger. I consulted Dr. Lyles surgeon who advised x-ray and if infection consult hand surgeon I have greeted and performed a rapid initial assessment of this patient. A comprehensive ED assessment and evaluation of the patient, analysis of test results and completion of the medical decision making process will be conducted by additional ED providers. TRAVEL OUTSIDE OF THE [place] IN LAST 30 DAYS: No - Related Data Allergies/Adverse Reactions: No Known Allergies Allergy (Verified 04/18/18 12:13) Home Medications: Lantus Past Medical History - Social History Chew tobacco use (# tins/day): No Frequency of alcohol use: None Drug Abuse: None - Past Medical History Cardiac Medical History: Reports: Hx Hypercholesterolemia, Hx Hypertension Pulmonary Medical History: Reports: Hx COPD Neurological Medical History: Denies: Hx Seizures Endocrine Medical History: Reports: Hx Diabetes Mellitus Type 2 Renal/ Medical History: Denies: Hx Peritoneal Dialysis GI Medical History: Reports: Hx Gastroesophageal Reflux Disease, Hx Irritable Bowel - constipation type. Denies: Hx Crohn's Disease, Hx Ulcerative Colitis Musculoskeltal Medical History: Denies Hx Fibromyalgia Skin Medical History: Denies Hx Psoriasis Psychiatric Medical History: Denies: Hx Depression Traumatic Medical History: Denies: Hx Traumatic Brain Injury Infectious Medical History: Denies: Hx C-Diff Past Surgical History: Reports: Hx Orthopedic Surgery - left foot - Immunizations Immunizations up to date: Yes Hx Diphtheria, Pertussis, Tetanus Vaccination: Yes - unk Physical Exam - Vital signs Vitals: Temp Pulse Resp BP Pulse Ox 97.6 F 97 16 138/71 H 99 12/29/19 14:50 12/29/19 14:50 12/29/19 14:50 12/29/19 14:50 12/29/19 14:50 Course - Vital Signs Vital signs: Temp Pulse Resp BP Pulse Ox 97.6 F 97 16 138/71 H 99 12/29/19 14:50 12/29/19 14:50 12/29/19 14:50 12/29/19 14:50 12/29/19 14:50 Doctor's Discharge - Discharge Referrals: CYNTHIA LÓPEZ MD [Primary Care Provider] - Follow up as needed
--- NOTE | 2019-12-29 16:05 | RADIOLOGY REPORT (SQ) ---
EXAM DESCRIPTION: FINGER LEFT COMPLETED DATE/TIME: 12/29/2019 3:57 pm REASON FOR STUDY: finger injury COMPARISON: None. NUMBER OF VIEWS: Three views. TECHNIQUE: AP, lateral, and oblique images acquired of the left third finger. LIMITATIONS: None. FINDINGS: MINERALIZATION: Normal. BONES: No acute fracture or dislocation. No worrisome bone lesions. SOFT TISSUES: Soft tissue atrophy involving the tuft of the 3rd digit. Vascular calcification. OTHER: No other significant finding. IMPRESSION: No underlying bony abnormality. There are soft tissue changes involving the maggy of th e 3rd digit. TECHNICAL DOCUMENTATION: JOB ID: [id number] [employer]- All Rights Reserved Reading location - IP/workstation name: [email or web address]
[2019-12-29 16:30] LABS: ABSOLUTE EOSINOPHILS # (AUTO) 0.3 10^3/uL (0.0-0.6); ABSOLUTE LYMPHOCYTES (AUTO) 1.1 10^3/uL (0.5-4.7); ABSOLUTE MONOCYTES (AUTO) 0.6 10^3/uL (0.1-1.4); ABSOLUTE NEUT (AUTO) 3.9 10^3/uL (1.7-8.2); BASOPHILS % (AUTO) 0.6 % (0-2); EOSINOPHILS % (AUTO) 4.9 % (0-6); HEMATOCRIT 36.9 % (37.9-51.0); HEMOGLOBIN 12.8 g/dL (13.5-17.0); LYMPHOCYTES % (AUTO) 18.3 % (13-45); MEAN CORPUSCULAR HEMOGLOBIN 29.7 pg (27.0-33.4); MEAN CORPUSCULAR HGB CONC 34.7 g/dL (32.0-36.0); MEAN CORPUSCULAR VOLUME 86 fl (80-97); MONOCYTES % (AUTO) 9.6 % (3-13); PLATELET COUNT 361 10^3/uL (150-450); RED CELL DISTRIBUTION WIDTH 15.2 % (11.5-14.0); SEGMENTED NEUTROPHILS % (AUTO) 66.6 % (42-78); TOTAL CELLS COUNTED % (AUTO) 100 %; WHITE BLOOD COUNT 5.9 10^3/uL (4.0-10.5)
[2019-12-29 16:39] LABS: ALBUMIN 3.6 g/dL (3.5-5.0); ALKALINE PHOSPHATASE 138 U/L (38-126); ANION GAP 8 (5-19); ASPARTATE AMINO TRANSFERASE 19 U/L (17-59); BILIRUBIN,DIRECT 0.1 mg/dL (0.0-0.4); BILIRUBIN,TOTAL 0.5 mg/dL (0.2-1.3); BLOOD UREA NITROGEN 14 mg/dL (7-20); CALCIUM 8.6 mg/dL (8.4-10.2); CARBON DIOXIDE 28 mmol/L (22-30); CHLORIDE 93 mmol/L (98-107); GLUCOSE 301 mg/dL (75-110); POTASSIUM 4.2 mmol/L (3.6-5.0); TOTAL PROTEIN 6.6 g/dL (6.3-8.2)
--- NOTE | 2019-12-29 18:43 | ER Document Report ---
HPI - HPI Time Seen by Provider: 12/29/19 15:38 Pain Level: 4 Notes: Patient is a 59-year-old male with a history of diabetes who presents for a wound recheck after he had a surgical procedure performed by Dr. Goddard to his left distal middle finger about a month ago. Patient states that he has had increased pain and some swelling associated. There does continue to be a scab there from the procedure. Patient states that he may have had a thorn or something at the end of his finger that caused an infection and the surgeon removed his fingernail at that time and he was placed on antibiotics. Patient had a follow-up about 3 weeks ago and was told that everything would be all right. He started noticing increased pain recently and has been having trouble sleeping because of the pain. He has not noticed any red streaks or purulent discharge. He otherwise has been able to eat and drink without difficulty. He is urinating normally and having normal bowel movements. He otherwise feels well aside from his finger. No other concerns or complaints. Denies any headache, fever, dizziness, neck pain, changes in vision/speech/mentation/hearing, URI, sore throat, chest pain, palpitations, syncope, cough, shortness of breath, wheeze, dyspnea, abdominal pain, nausea/vomiting/diarrhea, urinary retention, dysuria, hematuria, loss of control of bowel or bladder, saddle anesthesia, muscle paralysis/weakness, or rash. - ROS Systems Reviewed and Negative: Yes All other systems reviewed and negative Past Medical History - General Information source: Patient - Social History Smoking Status: Current Every Day Smoker Chew tobacco use (# tins/day): No Frequency of alcohol use: None Drug Abuse: None Family History: Reviewed & Not Pertinent, CAD, DM, Hyperlipidemia, Hypertension, Malignancy Patient has suicidal ideation: No Patient has homicidal ideation: No - Past Medical History Cardiac Medical History: Reports: Hx Hypercholesterolemia, Hx Hypertension Pulmonary Medical History: Reports: Hx COPD Neurological Medical History: Denies: Hx Seizures Endocrine Medical History: Reports: Hx Diabetes Mellitus Type 2 Renal/ Medical History: Denies: Hx Peritoneal Dialysis GI Medical History: Reports: Hx Gastroesophageal Reflux Disease, Hx Irritable Bowel - constipation type. Denies: Hx Crohn's Disease, Hx Ulcerative Colitis Musculoskeletal Medical History: Denies Hx Fibromyalgia Skin Medical History: Denies Hx Psoriasis Psychiatric Medical History: Denies: Hx Depression Traumatic Medical History: Denies: Hx Traumatic Brain Injury Infectious Medical History: Denies: Hx C-Diff Past Surgical History: Reports: Hx Orthopedic Surgery - left foot - Immunizations Immunizations up to date: Yes Hx Diphtheria, Pertussis, Tetanus Vaccination: Yes - unk Hx Pneumococcal Vaccination: 07/20/18 Vertical Provider Document - CONSTITUTIONAL Agree With Documented VS: Yes Notes: PHYSICAL EXAMINATION: GENERAL: Well-appearing, well-nourished and in no acute distress. HEAD: Atraumatic, normocephalic. NECK: Normal range of motion, supple without lymphadenopathy. No midline tenderness. LUNGS: Breath sounds clear to auscultation bilaterally and equal. No wheezes rales or rhonchi. HEART: Regular rate and rhythm without murmurs, rubs, gallops. Musculoskeletal: Lt hand/wrist: There is mild swelling to the distal 3rd digit with a scab posteriorly. + mild tenderness. No obvious fluctuance or purulence noted. No streaks. + mild erythema at the distal finger only. FROM to passive/active. Strength 5+/5. No scaphoid tenderness. No other bony tenderness. Extremities: No cyanosis, clubbing, or edema b/l. Peripheral pulses 2+. Capillary refill less than 3 seconds, mildly prolonged at the 3rd rt finger. NEUROLOGICAL: Normal speech, normal gait. Normal sensory, motor exams otherwise unremarkable PSYCH: Normal mood, normal affect. SKIN: see above. No rash - INFECTION CONTROL TRAVEL OUTSIDE OF THE [place] IN LAST 30 DAYS: No Course - Re-evaluation Re-evalutation: 12/29/19 18:42 Dr. bill in agreement with dispo/plan: Patient is an afebrile, well-hydrated, 59-year-old male who presents for ongoing finger pain and probable mild infection in the setting of diabetes. Vitals are acceptable. PE is otherwise unremarkable. Patient is nontoxic-appearing and is tolerating p.o. without difficulty. He is otherwise asymptomatic aside from the finger pain. The surgeon, Dr. Lyles, was consulted from triage and evaluated the patient. He recommends dicloxacillin, Epson salt soaks, and follow-up with a hand surgeon. Labs are acceptable. Imaging unremarkable. He does have mildly low sodium, but is otherwise asymptomatic. Patient encouraged to increase sodium in his diet temporarily. No further work-up warranted. Low suspicion for any sepsis, meningitis, osteomyelitis, or other systemic emergent condition at this time. Patient is aware that condition can change and needs monitor symptoms closely and seek medical attention with any acute changes. He is to schedule an appointment with a hand surgeon as reviewed. Recheck with your PCM this week. Return to the ED with any other worsening/concerning symptoms. Patient is in agreement. - Vital Signs Vital signs: Temp Pulse Resp BP Pulse Ox 97.6 F 97 16 138/71 H 99 12/29/19 14:50 12/29/19 14:50 12/29/19 14:50 12/29/19 14:50 12/29/19 14:50 - Laboratory Result Diagrams: 12/29/19 16:10 12/29/19 16:10 Laboratory results interpreted by me: 12/29/19 12/29/19 16:10 16:10 RBC 4.30 L Hgb 12.8 L Hct 36.9 L RDW 15.2 H Sodium 128.6 L Chloride 93 L Glucose 301 H Alkaline Phosphatase 138 H Discharge - Discharge Clinical Impression: Finger pain, left Condition: Stable Disposition: HOME, SELF-CARE Additional Instructions: Keep the skin clean Wash with soap and water Tylenol/ibuprofen if needed Triple antibiotic ointment daily Epson salt soaks as reviewed Take medication as directed Monitor for any worsening symptoms Recheck with your PCM in 2-3 days Schedule an appointment with a hand specialist as reviewed Consider consult with General Surgeon for ongoing/worsening symptoms Return to the ED with any worsening symptoms and/or development of fever, headache, chest pain, palpitations, syncope, shortness of breath, trouble breathing, abdominal pain, n/v/d, abscess, purulent discharge, red streaks, worsening swelling, or other worsening symptoms that are concerning to you. Prescriptions: Dicloxacillin Sodium [Dynapen 250 mg Capsule] 250 mg PO QID #40 capsule Morphine Sulfate [Morphine Ir 15 Mg Tablet] 15 mg PO TID #12 tablet Forms: Elevated Blood Pressure, Smoking Cessation Education Referrals: CYNTHIA LÓPEZ MD [Primary Care Provider] - Follow up as needed NUHA TALAVERA DO [ACTIVE STAFF] - Follow up as needed LLOYD PAYTON MD [NO LOCAL MD] - Follow up in 3-5 days
== END 2019-12-29 19:26 | disposition home or self-care (01) ==
LOC: ER 14:46
DX: M79.645 Pain in left finger(s) (principal); E11.9 Type 2 diabetes mellitus without complications; F17.200 Nicotine dependence, unspecified, uncomplicated; E78.00 Pure hypercholesterolemia, unspecified; I10 Essential (primary) hypertension; J44.9 Chronic obstructive pulmonary disease, unspecified
CPT/HCPCS: 36415; 80053; 85025; 99283

== ENCOUNTER 2020-01-25 13:50 | Inpatient (IN) | payer MEDICARE, MEDICAID ==
[2020-01-25] MEDS ORDERED: ONDANSETRON HCL INJ/PF 4 MG/2 ML SDV IV ONE (15:38)
--- NOTE | 2020-01-25 15:39 | ER Document Report ---
ED General - General Stated Complaint: NAUSEA,VOMITING Time Seen by Provider: 01/25/20 14:18 Mode of Arrival: Medic Information source: Patient Notes: 59-year-old man presents emergency department with nausea vomiting diarrhea which is ongoing for the past few days. He called EMS and was given Zofran in route. IV was started. He states that the nausea is some better. He denies fever, dizziness, loss of consciousness. Patient is a poor historian. TRAVEL OUTSIDE OF THE [place] IN LAST 30 DAYS: No - Related Data Allergies/Adverse Reactions: No Known Allergies Allergy (Verified 04/18/18 12:13) Past Medical History - Social History Smoking Status: Unknown if Ever Smoked Family History: Reviewed & Not Pertinent, CAD, DM, Hyperlipidemia, Hypertension, Malignancy - Past Medical History Cardiac Medical History: Reports: Hx Hypercholesterolemia, Hx Hypertension Pulmonary Medical History: Reports: Hx COPD Neurological Medical History: Denies: Hx Seizures Endocrine Medical History: Reports: Hx Diabetes Mellitus Type 2 Renal/ Medical History: Denies: Hx Peritoneal Dialysis GI Medical History: Reports: Hx Gastroesophageal Reflux Disease, Hx Irritable Bowel - constipation type. Denies: Hx Crohn's Disease, Hx Ulcerative Colitis Musculoskeletal Medical History: Denies Hx Fibromyalgia Skin Medical History: Denies Hx Psoriasis Psychiatric Medical History: Denies: Hx Depression Traumatic Medical History: Denies: Hx Traumatic Brain Injury Infectious Medical History: Denies: Hx C-Diff Past Surgical History: Reports: Hx Orthopedic Surgery - left foot - Immunizations Immunizations up to date: Yes Hx Diphtheria, Pertussis, Tetanus Vaccination: Yes - unk Hx Pneumococcal Vaccination: 07/20/18 Review of Systems - Review of Systems Notes: Constitutional: Negative for fever. HENT: Negative for sore throat. Eyes: Negative for visual changes. Cardiovascular: Negative for chest pain. Respiratory: Negative for shortness of breath. Gastrointestinal: + Nausea, + vomiting, + diarrhea Genitourinary: Negative for dysuria. Musculoskeletal: Negative for back pain. Skin: Negative for rash. Neurological: Negative for headaches, weakness or numbness. 10 point ROS negative except as marked above and in HPI. Physical Exam - Vital signs Vitals: Temp Pulse Resp BP Pulse Ox 99.0 F 90 20 125/91 H 100 01/25/20 13:50 01/25/20 13:50 01/25/20 13:50 01/25/20 13:50 01/25/20 13:50 - Notes Notes: PHYSICAL EXAMINATION: Physical Exam: General: Well-nourished well-developed 59-year-old man in no acute distress HEENT: NC/AT, pupils equal round and reactive to light, MM moist,nares clear, oropharynx clear, airway patent Neck: supple, no adenopathy, no masses. Good range of motion Lungs: clear, no wheezing, no rales no rhonchi CVS: Regular rate and rhythm no murmur gallop or rub Abdomen: Soft, active, nontender, no masses, no hepatosplenomegaly Ext: No edema, clubbing or cyanosis. Neuro: Alert and responsive, moving all 4 extremities on command, cranial nerves intact, no focal findings Skin: Intact no open lesions, no rash PSYCH: Normal mood, normal affect. Course - Re-evaluation Re-evalutation: 01/25/20 16:28 Patient apparently has had a improvement of his symptoms with Zofran, patient is noted to be hyponatremic, review of his labs reveal a downward trend over the past month. Sodium was 128 December 29, 2019. The only other labs we have were normal prior to this. He is diabetic blood sugar is elevated however, he is not acidotic or anion gap increased. I spoke with the hospitalist, Dr. Colby will be brought into the hospital for medical observation. - Vital Signs Vital signs: Temp Pulse Resp BP Pulse Ox 99.0 F 90 20 125/91 H 100 01/25/20 13:50 01/25/20 13:50 01/25/20 13:50 01/25/20 13:50 01/25/20 13:50 - Laboratory Result Diagrams: 01/25/20 15:15 01/25/20 15:15 Laboratory results interpreted by me: 01/25/20 01/25/20 01/25/20 15:15 15:15 15:15 Hgb 13.4 L RDW 14.5 H Lymph % (Auto) 11.7 L Seg Neutrophils % 81.8 H Sodium 123.8 L Chloride 88 L Glucose 293 H Serum Osmolality 271 L Calcium 8.3 L Total Protein 5.9 L Albumin 3.0 L Discharge - Discharge Clinical Impression: Hyponatremia, Poorly controlled diabetes mellitus, Nausea vomiting and diarrhea Condition: Good Disposition: ADMITTED OBSERVATION Admitting Provider: Earnestine (Hospitalist) Unit Admitted: Medical Floor
[2020-01-25 15:56] LABS: ABSOLUTE BASOPHILS # (AUTO) 0.1 10^3/uL (0.0-0.2); ABSOLUTE MONOCYTES (AUTO) 0.4 10^3/uL (0.1-1.4); ABSOLUTE NEUT (AUTO) 6.8 10^3/uL (1.7-8.2); EOSINOPHILS % (AUTO) 0.2 % (0-6); HEMATOCRIT 37.9 % (37.9-51.0); HEMOGLOBIN 13.4 g/dL (13.5-17.0); LYMPHOCYTES % (AUTO) 11.7 % (13-45); MEAN CORPUSCULAR HEMOGLOBIN 30.1 pg (27.0-33.4); MEAN CORPUSCULAR HGB CONC 35.5 g/dL (32.0-36.0); MEAN CORPUSCULAR VOLUME 85 fl (80-97); MONOCYTES % (AUTO) 5.3 % (3-13); PLATELET COUNT 301 10^3/uL (150-450); RED BLOOD COUNT 4.47 10^6/uL (4.35-5.55); RED CELL DISTRIBUTION WIDTH 14.5 % (11.5-14.0); SEGMENTED NEUTROPHILS % (AUTO) 81.8 % (42-78); TOTAL CELLS COUNTED % (AUTO) 100 %; WHITE BLOOD COUNT 8.4 10^3/uL (4.0-10.5)
[2020-01-25 16:01] LABS: ALKALINE PHOSPHATASE 105 U/L (38-126); ANION GAP 10 (5-19); ASPARTATE AMINO TRANSFERASE 17 U/L (17-59); BILIRUBIN,DIRECT 0.1 mg/dL (0.0-0.4); BILIRUBIN,TOTAL 0.6 mg/dL (0.2-1.3); BLOOD UREA NITROGEN 18 mg/dL (7-20); CALCIUM 8.3 mg/dL (8.4-10.2); CARBON DIOXIDE 26 mmol/L (22-30); CHLORIDE 88 mmol/L (98-107); GLUCOSE 293 mg/dL (75-110); POTASSIUM 4.3 mmol/L (3.6-5.0); TOTAL PROTEIN 5.9 g/dL (6.3-8.2)
[2020-01-25] MEDS ORDERED: NORMAL SALINE 1000 ML 1,000 ML IV ONE (16:47)
[2020-01-25] MEDS ORDERED: NORMAL SALINE 1000 ML 1,000 ML IV PRN (17:58)
[2020-01-25] MEDS ORDERED: ONDANSETRON HCL INJ/PF 4 MG/2 ML SDV IV PRN (17:58)
[2020-01-25 17:59] LABS: URINE SODIUM 111 mmol/L (30-90)
[2020-01-25 18:10] LABS: OSMOLALITY,URINE 504 mOsm/kg (300-900)
[2020-01-25] MEDS ORDERED: DEXTROSE 40% GEL 15 GM TUBE PO PRN ×2 (18:33)
[2020-01-25] MEDS ORDERED: GLUCAGON,HUMAN RECOMB 1 MG INJ IM PRN (18:33)
[2020-01-25] MEDS ORDERED: DEXTROSE 50%-WATER 25 GM/50 ML DISP.SYRIN IV PRN (18:33)
[2020-01-25] MEDS ORDERED: IPRATROPIUM/ALBUTEROL 0.5-2.5 MG/3 ML AMPUL NEB PRN (18:36)
[2020-01-25] MEDS ORDERED: ACETAMINOPHEN 325 MG TABLET PO PRN (18:40)
[2020-01-25] MEDS ORDERED: NICOTINE 14 MG/24 HR PATCH.TD24 TD PRN (19:05)
--- NOTE | 2020-01-25 19:05 | PDOC H&P ---
History of Present Illness Admission Date/PCP: 01/25/20 17:05 CYNTHIA LÓPEZ Patient complains of: Nausea vomiting, mental status changes History of Present Illness: JEYSON HELLER is a 59 year old male diabetes mellitus, deafness, GERD, De [place] Torre's esophagus status post endoscopic ablations, chronic rhinorrhea, who was brought into the hospital by EMS on request of patient's fiance. Of note, most of history obtained from patient's fianc as patient is a poor historian. Patient apparently has been having nausea vomiting for the past few days and has been unable to keep down much of anything. Patient has a poor diet with drinking a lot of sodas and poor caloric intake. Recently over the past 2 days patient has become more fatigued, more wobbly when walking and started experiencing some visual changes. This prompted patient's fiance to send patient to the hospital for evaluation. She also notes that he has an area of redness and infection in his finger of his left middle finger and does state that he has a history of MRSA infections. Past Medical History Cardiac Medical History: Reports: Hyperlipidema, Hypertension Pulmonary Medical History: Reports: Chronic Obstructive Pulmonary Disease (COPD) Neurological Medical History: Denies: Seizures Endocrine Medical History: Reports: Diabetes Mellitus Type 2 GI Medical History: Reports: Gastroesophageal Reflux Disease Denies: Crohn's Disease, Ulcerative Colitis Musculoskeltal Medical History: Denies: Fibromyalgia Skin Medical History: Denies: Psoriasis Psychiatric Medical History: Denies: Depression Traumatic Medical History: Denies: Traumatic Brain Injury Hematology: Denies: Sickle Cell Disease Infectious Medical History: Denies: Clostridium Difficile Past Surgical History Past Surgical History: Reports: Orthopedic Surgery - left foot Social History Smoking Status: Current Every Day Smoker Frequency of Alcohol Use: None Hx Recreational Drug Use: No Drugs: None Hx Prescription Drug Abuse: No - Advance Directive Resuscitation Status: Full Code Family History Family History: Reviewed & Not Pertinent, CAD, DM, Hyperlipidemia, Hypertension, Malignancy Parental Family History Reviewed: Yes Children Family History Reviewed: NA Sibling(s) Family History Reviewed.: NA Medication/Allergy Home Medications: Albuterol Sulfate [Proair HFA Inhalation Aerosol 8.5 gm MDI] 2 puff IH Q6HP PRN 03/14/17 Fluticasone/Salmeterol [Advair 250-50 Diskus 14 Dose/Diskus] 1 puff IH Q12 03/14/17 Omeprazole 40 mg PO BID 03/14/17 Ergocalciferol (Vitamin D2) [Drisdol 50,000 unit (1.25MG) Capsule] 50,000 unit PO ALDANA@1000 01/25/20 Fluticasone Propionate [Flonase Nasal Ona 50 Mcg/Ona 16 gm] 1 spray NASL DAILY 01/25/20 Insulin Aspart [Novolog Flexpen] 0 unit SUBCUT .SLD SCALE 01/25/20 Insulin Detemir [Levemir] 25 unit SQ QPM 01/25/20 Insulin Detemir [Levemir] 50 unit SQ QAM 01/25/20 Allergies/Adverse Reactions: No Known Allergies Allergy (Verified 04/18/18 12:13) Review of Systems ROS unobtainable: Due to mental status Physical Exam Vital Signs: Temp Pulse Resp BP Pulse Ox 99.0 F 90 20 125/91 H 100 01/25/20 13:50 01/25/20 13:50 01/25/20 13:50 01/25/20 13:50 01/25/20 13:50 Intake & Output 01/24/20 01/25/20 01/26/20 06:59 06:59 06:59 Weight 53.07 kg General appearance: PRESENT: no acute distress, cooperative, hard of hearing, thin Head exam: PRESENT: normocephalic Mouth exam: PRESENT: dry mucosa Neck exam: ABSENT: JVD Respiratory exam: PRESENT: clear to auscultation zaid, unlabored. ABSENT: tachy pnea, wheezes Cardiovascular exam: PRESENT: +S1, +S2 GI/Abdominal exam: PRESENT: soft. ABSENT: rebound, rigid, tenderness Neurological exam: PRESENT: alert, awake, oriented to person, oriented to place, other - Very slow to respond to questions. Hard to follow instructions. Psychiatric exam: ABSENT: agitated, anxious Focused psych exam: ABSENT: pressured speech Skin exam: ABSENT: jaundice Results Laboratory Results: 01/25/20 15:15 01/25/20 15:15 01/25/20 01/25/20 01/25/20 15:15 15:15 15:15 WBC 8.4 RBC 4.47 Hgb 13.4 L Hct 37.9 MCV 85 MCH 30.1 MCHC 35.5 RDW 14.5 H Plt Count 301 Seg Neutrophils % 81.8 H Sodium 123.8 L Potassium 4.3 Chloride 88 L Carbon Dioxide 26 Anion Gap 10 BUN 18 Creatinine 0.64 Est GFR ( Amer) > 60 Glucose 293 H Serum Osmolality 271 L Calcium 8.3 L Total Bilirubin 0.6 AST 17 Alkaline Phosphatase 105 Total Protein 5.9 L Albumin 3.0 L Urine Osmolality 01/25/20 17:10 WBC RBC Hgb Hct MCV MCH MCHC RDW Plt Count Seg Neutrophils % Sodium Potassium Chloride Carbon Dioxide Anion Gap BUN Creatinine Est GFR ( Amer) Glucose Serum Osmolality Calcium Total Bilirubin AST Alkaline Phosphatase Total Protein Albumin Urine Osmolality 504 Assessment and Plan - Diagnosis (1) Hyponatremia Is this a current diagnosis for this admission?: Yes Plan: Likely secondary to hypovolemia. Patient has very poor caloric intake and has been dehydrated given nausea vomiting and diarrhea. We will give IV fluid normal saline check response to IV fluids. Monitor BMP. (2) Acute metabolic encephalopathy Is this a current diagnosis for this admission?: Yes Plan: Patient's fiance dates that patient's visual changes as well as disequilibrium are more acute which occurred 2 days ago. I will go ahead and check an MRI of the brain. (3) Nausea, vomiting and diarrhea Is this a current diagnosis for this admission?: Yes Plan: Zofran. Will hydrate. If patient has significant amount of diarrhea, will check C. difficile. (4) Onychomycosis Is this a current diagnosis for this admission?: Yes Plan: We will start on terbinafine for suspected onychomycosis of the left middle finger (5) Chronic allergic rhinitis Is this a current diagnosis for this admission?: Yes Plan: Flonase (6) Diabetes mellitus Is this a current diagnosis for this admission?: Yes Plan: Uses Levemir 20 units in the morning and 25 units at night at home. I will place patient on Lantus 20 units every 12 hours while here. Continue Accu-Cheks and sliding scale insulin. (7) Tobacco dependence Is this a current diagnosis for this admission?: Yes Plan: Nicotine patch will be offered - Time Time Spent with patient: 35 or more minutes
[2020-01-25] MEDS: FAMOTIDINE 20 MG TABLET PO SCH (21:53)
[2020-01-25] MEDS: HYDRALAZINE HCL INJ/PF 20 MG/1 ML SDV IV PRN (21:53)
[2020-01-25] MEDS: FLUTICASONE NASAL SPRAY 50 MCG/SPRY 120 SPRAY/16 GM NASL SCH (21:53)
[2020-01-25 22:03] LABS: ANION GAP 13 (5-19); BLOOD UREA NITROGEN 24 mg/dL (7-20); CALCIUM 8.5 mg/dL (8.4-10.2); CARBON DIOXIDE 28 mmol/L (22-30); CHLORIDE 82 mmol/L (98-107); POTASSIUM 4.1 mmol/L (3.6-5.0)
[2020-01-25] MEDS: INSULIN GLARGINE,HUM.REC.ANLOG 1,000 UNIT/10 ML VIAL SUBCUT SCH (22:04)
[2020-01-25] MEDS: INSULIN LISPRO 100 UNIT/ML 3 ML VIAL SUBCUT SCH (22:05)
[2020-01-25 22:21] LABS: GLUCOSE 470 mg/dL (75-110)
[2020-01-26 05:15] LABS: HEMATOCRIT 34.5 % (37.9-51.0); HEMOGLOBIN 12.3 g/dL (13.5-17.0); MEAN CORPUSCULAR HEMOGLOBIN 29.6 pg (27.0-33.4); MEAN CORPUSCULAR HGB CONC 35.6 g/dL (32.0-36.0); MEAN CORPUSCULAR VOLUME 83 fl (80-97); PLATELET COUNT 290 10^3/uL (150-450); RED BLOOD COUNT 4.14 10^6/uL (4.35-5.55); RED CELL DISTRIBUTION WIDTH 14.3 % (11.5-14.0); WHITE BLOOD COUNT 7.1 10^3/uL (4.0-10.5)
[2020-01-26 05:50] LABS: ANION GAP 9 (5-19); BLOOD UREA NITROGEN 28 mg/dL (7-20); CALCIUM 8.4 mg/dL (8.4-10.2); CARBON DIOXIDE 28 mmol/L (22-30); CHLORIDE 88 mmol/L (98-107); PHOSPHORUS 3.3 mg/dL (2.5-4.5); POTASSIUM 3.6 mmol/L (3.6-5.0)
[2020-01-26 05:55] LABS: GLUCOSE 62 mg/dL (75-110)
[2020-01-26] MEDS: DEXTROSE 50%-WATER 25 GM/50 ML DISP.SYRIN IV PRN ×2 (06:04→11:55)
[2020-01-26] MEDS: PANTOPRAZOLE SODIUM 40 MG TABLET.DR PO SCH ×2 (06:11→17:40)
[2020-01-26] MEDS: INSULIN LISPRO 100 UNIT/ML 3 ML VIAL SUBCUT SCH ×4 (07:48→21:23)
[2020-01-26] MEDS: FLUTICASONE NASAL SPRAY 50 MCG/SPRY 120 SPRAY/16 GM NASL SCH ×2 (09:27→21:24)
[2020-01-26] MEDS: TERBINAFINE HCL 250 MG TABLET PO SCH (09:27)
[2020-01-26] MEDS: FAMOTIDINE 20 MG TABLET PO SCH ×2 (09:27→21:23)
[2020-01-26] MEDS: INSULIN GLARGINE,HUM.REC.ANLOG 1,000 UNIT/10 ML VIAL SUBCUT SCH (09:28)
[2020-01-26] MEDS: FLUTICASONE/VILANTEROL 100-25 MCG/DOSE IH SCH (09:28)
[2020-01-26] MEDS ORDERED: ASPIRIN 81 MG TABLET, ENT COATED PO SCH (10:00)
[2020-01-26] MEDS ORDERED: NORMAL SALINE 1000 ML 1,000 ML IV ONE (13:05)
--- NOTE | 2020-01-26 13:23 | PDOC PROGRESS REPORT ---
Subjective Progress Note for:: 01/26/20 Subjective:: Patient still not eating much of any history. Apparently patient refused to go for MRI yesterday night. Patient has also been refusing medications today. Reason For Visit: HYPONATREMIA, VOMITING Physical Exam Vital Signs: Temp Pulse Resp BP Pulse Ox 97.8 F 88 19 161/65 H 91 L 01/26/20 11:32 01/26/20 11:32 01/26/20 11:32 01/26/20 11:32 01/26/20 11:32 Intake & Output 01/25/20 01/26/20 01/27/20 06:59 06:59 06:59 Weight 52.4 kg General appearance: PRESENT: no acute distress, cooperative, hard of hearing, thin Mouth exam: PRESENT: dry mucosa Neck exam: ABSENT: JVD Respiratory exam: PRESENT: clear to auscultation zaid, unlabored. ABSENT: tachypnea, wheezes Cardiovascular exam: PRESENT: RRR, +S1, +S2. ABSENT: tachycardia GI/Abdominal exam: PRESENT: soft. ABSENT: rebound, rigid, tenderness Neurological exam: PRESENT: other - Mostly asleep but awakes very easily to verbal stimulus. Results Laboratory Results: 01/26/20 04:53 01/26/20 04:53 01/25/20 01/25/20 01/25/20 15:15 15:15 15:15 WBC 8.4 RBC 4.47 Hgb 13.4 L Hct 37.9 MCV 85 MCH 30.1 MCHC 35.5 RDW 14.5 H Plt Count 301 Seg Neutrophils % 81.8 H Sodium 123.8 L Potassium 4.3 Chloride 88 L Carbon Dioxide 26 Anion Gap 10 BUN 18 Creatinine 0.64 Est GFR ( Amer) > 60 Glucose 293 H Serum Osmolality 271 L Calcium 8.3 L Phosphorus Magnesium Total Bilirubin 0.6 AST 17 Alkaline Phosphatase 105 Total Protein 5.9 L Albumin 3.0 L TSH Urine Osmolality 01/25/20 01/25/20 01/26/20 17:10 21:10 04:53 WBC 7.1 RBC 4.14 L Hgb 12.3 L Hct 34.5 L MCV 83 MCH 29.6 MCHC 35.6 RDW 14.3 H Plt Count 290 Seg Neutrophils % Sodium 122.5 L Potassium 4.1 Chloride 82 L Carbon Dioxide 28 Anion Gap 13 BUN 24 H Creatinine 0.91 Est GFR ( Amer) > 60 Glucose 470 H* Serum Osmolality Calcium 8.5 Phosphorus Magnesium Total Bilirubin AST Alkaline Phosphatase Total Protein Albumin TSH Urine Osmolality 504 01/26/20 01/26/20 04:53 04:53 WBC RBC Hgb Hct MCV MCH MCHC RDW Plt Count Seg Neutrophils % Sodium 124.9 L Potassium 3.6 Chloride 88 L Carbon Dioxide 28 Anion Gap 9 BUN 28 H Creatinine 0.83 Est GFR ( Amer) > 60 Glucose 62 L Serum Osmolality Calcium 8.4 Phosphorus 3.3 Magnesium 1.3 L Total Bilirubin AST Alkaline Phosphatase Total Protein Albumin TSH 0.47 Urine Osmolality Assessment and Plan - Diagnosis (1) Hyponatremia Is this a current diagnosis for this admission?: Yes Plan: Likely secondary to hypovolemia. Patient has very poor caloric intake and has been dehydrated. Some improvement noted with saline. We will continue normal saline infusion and give a bolus as well. Recheck BMP later today. (2) Acute metabolic encephalopathy Is this a current diagnosis for this admission?: Yes Plan: Patient's fiance dates that patient's visual changes as well as disequilibrium are more acute which occurred 2 days ago. I have ordered for an MRI but unfortunately patient has refused to go for MRI. (3) Nausea, vomiting and diarrhea Is this a current diagnosis for this admission?: Yes Plan: Zofran. Will hydrate. Monitor bowel movements (4) Onychomycosis Is this a current diagnosis for this admission?: Yes Plan: terbinafine for suspected onychomycosis of the left middle finger (5) Chronic allergic rhinitis Is this a current diagnosis for this admission?: Yes Plan: Flonase (6) Diabetes mellitus Is this a current diagnosis for this admission?: Yes Plan: Uses Levemir 20 units in the morning and 25 units at night at home. I will place patient on Lantus 20 units every 12 hours while here. Continue Accu-Cheks and sliding scale insulin. (7) Tobacco dependence Is this a current diagnosis for this admission?: Yes Plan: Nicotine patch will be offered - Time Time Spent with patient: 15-24 minutes
--- NOTE | 2020-01-26 14:09 | RADIOLOGY REPORT (SQ) ---
EXAM DESCRIPTION: CHEST SINGLE VIEW IMAGES COMPLETED DATE/TIME: 01/26/2020 1:58 pm REASON FOR STUDY: history of cavitary lesion COMPARISON: 08/25/2019 EXAM PARAMETERS: NUMBER OF VIEWS: One view. TECHNIQUE: Single frontal radiographic view of the chest acquired. RADIATION DOSE: NA LIMITATIONS: None. FINDINGS: LUNGS AND PLEURA: There is hyperexpansion with chronic pleural and parenchymal changes in left upper lobe. No consolidation or effusions. No pneumothorax. MEDIASTINUM AND HILAR STRUCTURES: No masses. Contour normal. HEART AND VASCULAR STRUCTURES: Heart normal in size. Normal vasculature. BONES: No acute findings. HARDWARE: None in the chest. OTHER: No other significant finding. IMPRESSION: No acute findings in the chest. Chronic pleural and parenchymal changes in the left upp er lobe. TECHNICAL DOCUMENTATION: JOB ID: [id number] 2010 [employer]- All Rights Reserved Reading location - IP/workstation name: [email or web address]
[2020-01-26] MEDS ORDERED: LOSARTAN POTASSIUM 50 MG TABLET PO ONE (15:22)
[2020-01-26 16:58] LABS: ANION GAP 7 (5-19); BLOOD UREA NITROGEN 22 mg/dL (7-20); CALCIUM 8.3 mg/dL (8.4-10.2); CARBON DIOXIDE 27 mmol/L (22-30); CHLORIDE 93 mmol/L (98-107); POTASSIUM 3.4 mmol/L (3.6-5.0)
[2020-01-26 17:08] LABS: GLUCOSE 67 mg/dL (75-110)
[2020-01-26] MEDS ORDERED: NORMAL SALINE 1000 ML 1,000 ML with POTASSIUM CHLORIDE 20 MEQ IV PRN ×2 (17:23)
[2020-01-26] MEDS: LORAZEPAM INJ 2 MG/1 ML VIAL IV PRN ×2 (19:50→20:11)
[2020-01-26] MEDS: LOSARTAN POTASSIUM 50 MG TABLET PO SCH (21:24)
--- NOTE | 2020-01-26 22:33 | RADIOLOGY REPORT (SQ) ---
MR BRAIN WITHOUT IV CONTRAST EXAM DATE: 01/26/2020 12:00 AM CDT HISTORY: Visual changes. Altered mental status. COMPARISON: None. TECHNIQUE: Multisequence, multiplanar MR imaging of the brain was performed without the administration of intravenous gadolinium. FINDINGS: There is a focal area restricted diffusion in the right occipital lobe white matter. Scattered areas of T2/FLAIR hyperintense foci are seen in the supratentorial white matter, likely representing chronic microvascular ischemia. There is no intracranial hemorrhage, extra-axial fluid collection, or mass. The orbits are unremarkable. The calvarium and skull base appear unremarkable. The paranasal sinuses are clear. IMPRESSION: 1. Acute lacunar infarction in the right occipital lobe white matter. 2. Senescent changes with chronic microvascular ischemia.
[2020-01-27] MEDS ORDERED: ATORVASTATIN CALCIUM 80 MG TABLET PO SCH (00:45)
[2020-01-27] MEDS ORDERED: ASPIRIN 325 MG TABLET PO SCH (00:45)
[2020-01-27] MEDS: POTASSI CL 20 MEQ/NS 1L 1000 ML IV PRN ×3 (00:53→17:33)
[2020-01-27] MEDS: PANTOPRAZOLE SODIUM 40 MG TABLET.DR PO SCH ×2 (05:02→17:29)
[2020-01-27 05:53] LABS: ANION GAP 7 (5-19); BLOOD UREA NITROGEN 26 mg/dL (7-20); CALCIUM 8.2 mg/dL (8.4-10.2); CARBON DIOXIDE 26 mmol/L (22-30); CHLORIDE 96 mmol/L (98-107); GLUCOSE 85 mg/dL (75-110); POTASSIUM 3.3 mmol/L (3.6-5.0)
[2020-01-27] MEDS: INSULIN LISPRO 100 UNIT/ML 3 ML VIAL SUBCUT SCH ×4 (07:19→21:19)
[2020-01-27] MEDS ORDERED: POTASSIUM CHLORIDE 10 MEQ TABLET.ER PO ONE (08:30)
[2020-01-27 08:43] LABS: CHOLESTEROL 179.52 mg/dL (0-200); TRIGLYCERIDES 118 mg/dL (<150)
[2020-01-27 08:54] LABS: DIRECT LDL 110 mg/dL (<100)
[2020-01-27] MEDS: CLOPIDOGREL BISULFATE 75 MG TABLET PO SCH (09:10)
[2020-01-27] MEDS: LOSARTAN POTASSIUM 50 MG TABLET PO SCH ×2 (09:10→21:18)
[2020-01-27] MEDS: TERBINAFINE HCL 250 MG TABLET PO SCH (09:10)
[2020-01-27] MEDS: FAMOTIDINE 20 MG TABLET PO SCH ×2 (09:10→21:18)
[2020-01-27] MEDS: FLUTICASONE/VILANTEROL 100-25 MCG/DOSE IH SCH (09:13)
[2020-01-27] MEDS: FLUTICASONE NASAL SPRAY 50 MCG/SPRY 120 SPRAY/16 GM NASL SCH ×2 (09:13→21:31)
--- NOTE | 2020-01-27 10:35 | Progress Note ---
Provider Note Provider Note: 69-year-old female with no significant past medical history came to the emergency room on January 24 around midnight with complaints of 3 hours of altered mental status, aphasia and weakness. Her NIH stroke scale is [address] scan did not show any bleed. Patient was given TPA and was admitted to ICU. Medical consult was called to downgrade the patient today. Patient's aphasia resolved right-sided weakness improving mild residual deficit in the right arm. Still have visual problems difficulty in reading. But she is able to count my fingers when I am standing 10 feet away. CTA of the head and neck are negative. Plan is to do the MRI of the brain today to start her on aspirin, Plavix and statins.Echocardiogram was requested and it is pending. OT PT consult was requested. To discontinue IV fluids. And to start on her blood pressure medications if the blood pressures are persistently high. On examination alert and awake communicating well. Pupils are equal and react to light accommodation. Neck was supple no JVD no carotid bruit. Chest bilateral entry was decreased no wheezing no crepitations. S1-S2 present. Abdominal bowel sounds are present. Extremities peripheral pulses are present no pedal edema. Plan is to downgrade her to IMCU today. To repeat the labs tomorrow.
--- NOTE | 2020-01-27 11:43 | PDOC PROGRESS REPORT ---
Subjective Progress Note for:: 01/27/20 Subjective:: Patient is awake today. Patient denies any chest pain or shortness of breath. States that he feels well. Only complaint of wanting to urinate during encounter. MRI of the brain came back positive for stroke last night. However patient's visual changes have been present for 2 days prior to admission. Reason For Visit: HYPONATREMIA, VOMITING Physical Exam Vital Signs: Temp Pulse Resp BP Pulse Ox 98.0 F 68 19 166/78 H 96 01/27/20 08:08 01/27/20 08:08 01/27/20 08:08 01/27/20 08:08 01/27/20 08:08 Intake & Output 01/26/20 01/27/20 01/28/20 06:59 06:59 06:59 Intake Total 2200 1000 Balance 2200 1000 Weight 52.4 kg 51.9 kg General appearance: PRESENT: no acute distress, cooperative, hard of hearing Eye exam: PRESENT: EOMI. ABSENT: nystagmus Neck exam: ABSENT: JVD Respiratory exam: PRESENT: clear to auscultation zaid, unlabored. ABSENT: tachypnea, wheezes Cardiovascular exam: PRESENT: RRR, +S1, +S2. ABSENT: tachycardia GI/Abdominal exam: PRESENT: soft. ABSENT: rebound, rigid, tenderness Neurological exam: PRESENT: alert, awake, other - Poor sight noted Results Laboratory Results: 01/26/20 04:53 01/27/20 04:54 01/26/20 01/27/20 01/27/20 16:20 04:54 04:54 Sodium 127.4 L 129.4 L Potassium 3.4 L 3.3 L Chloride 93 L 96 L Carbon Dioxide 27 26 Anion Gap 7 7 BUN 22 H 26 H Creatinine 0.71 0.76 Est GFR ( Amer) > 60 > 60 Glucose 67 L 85 Calcium 8.3 L 8.2 L Triglycerides 118 Cholesterol 179.52 LDL Cholesterol Direct 110 H VLDL Cholesterol 24.0 HDL Cholesterol 61 Impressions: Chest X-Ray 01/26/20 00:00 IMPRESSION: No acute findings in the chest. Chronic pleural and parenchymal changes in the left upper lobe. Head MRI 01/26/20 00:00 IMPRESSION: 1. Acute lacunar infarction in the right occipital lobe white matter. 2. Senescent changes with chronic microvascular ischemia. Assessment and Plan - Diagnosis (1) Acute ischemic stroke Is this a current diagnosis for this admission?: Yes Plan: MRI which was performed for visual changes which began 2 days before patient's presentation in the ER shows lacunar infarct involving the right occipital lobe. Likely only involved deficits this patient's visual changes as the stroke is quite small. Patient has been placed on aspirin and Plavix as well as atorvastatin. Will obtain carotid ultrasound. Physical and Occupational Therapy, swallow evaluation and stroke education (2) Hyponatremia Is this a current diagnosis for this admission?: Yes Plan: Likely secondary to hypovolemia. Patient has very poor caloric intake and has been dehydrated. Continue saline infusion which is showing good improvement at an adequate rate. Also encourage adequate nutrition. (3) Acute metabolic encephalopathy Is this a current diagnosis for this admission?: Yes Plan: Patient's mental status does seem to be improving he is now being more awake and talking but hard to follow instructions likely secondary to his deafness and poor sight. (4) Nausea, vomiting and diarrhea Is this a current diagnosis for this admission?: Yes Plan: Zofran. Will hydrate. Diarrhea seems to be resolving. (5) Onychomycosis Is this a current diagnosis for this admission?: Yes Plan: terbinafine for suspected onychomycosis of the left middle finger. Awaiting potassium hydroxide prep which has not been performed. (6) Chronic allergic rhinitis Is this a current diagnosis for this admission?: Yes Plan: Flonase (7) Diabetes mellitus Is this a current diagnosis for this admission?: Yes Plan: Uses Levemir 20 units in the morning and 25 units at night at home. I will resume patient's Lantus once patient starts eating adequately. Was noted to be hypoglycemic yesterday. Continue Accu-Cheks and sliding scale insulin. (8) Tobacco dependence Is this a current diagnosis for this admission?: Yes Plan: Nicotine patch will be offered - Time Time Spent with patient: Less than 15 minutes
--- NOTE | 2020-01-27 13:31 | RADIOLOGY REPORT (SQ) ---
EXAM DESCRIPTION: CAROTID DOPPLER IMAGES COMPLETED DATE/TIME: 01/27/2020 1:17 pm REASON FOR STUDY: stroke E08.29 DIABETES DUE TO UNDRL CONDITION W OTH DIABETIC KIDNEY I63.523 CERE BRAL INFRC DUE TO UNSP OCCLS OR STENOSIS OF BI A COMPARISON: None. TECHNIQUE: Grayscale ultrasound, Doppler velocity and spectra, and color Doppler images acquired of the extra-cranial carotid and vertebral arteries. Images stored on PACS. LIMITATIONS: None. FINDINGS: RIGHT CAROTID CCA Velocities: Within normal limits. ICA Velocities Peak systolic 1.01 m/s. End diastolic 0.34 m/s. Proximal ICA/CCA peak systolic ratio 1.9. Calcified plaque. LEFT CAROTID CCA Velocities: Within normal limits. ICA Velocities Peak systolic 0.91 m/s. End diastolic 0.3 m/s. Proximal ICA/CCA peak systolic ratio 1.4. Calcified plaque. VERTEBRAL ARTERIES: Antegrade flow. Normal waveforms. SUBCLAVIAN ARTERIES: No finding. OTHER: No other significant finding. IMPRESSION: NO HEMODYNAMICALLY SIGNIFICANT STENOSIS. COMMENT: Quality ID #[id number]: Velocity criteria are extrapolated from the diameter data as defined by t he Society of Radiologists in Ultrasound Consensus Conference. Radiology 2003: 229; 340-346. TECHNICAL DOCUMENTATION: JOB ID: [id number] 2010 [employer]- All Rights Reserved Reading location - IP/workstation name: [email or web address]
[2020-01-27] MEDS ORDERED: INSULIN LISPRO 100 UNIT/ML 3 ML VIAL SUBCUT ONE (17:01)
[2020-01-27] MEDS ORDERED: INSULIN NPH (ISOPHANE), HUMAN 100 UNIT/ML 3 ML SUBCUT ONE (17:45)
[2020-01-27] MEDS ORDERED: LORAZEPAM INJ 2 MG/1 ML VIAL IV PRN (18:43)
[2020-01-27] MEDS: INSULIN GLARGINE,HUM.REC.ANLOG 1,000 UNIT/10 ML VIAL SUBCUT SCH (21:18)
[2020-01-27] MEDS ORDERED: ATORVASTATIN CALCIUM 40 MG TABLET PO SCH (22:00)
[2020-01-27] MEDS: HYDRALAZINE HCL INJ/PF 20 MG/1 ML SDV IV PRN (22:11)
[2020-01-28] MEDS: PANTOPRAZOLE SODIUM 40 MG TABLET.DR PO SCH (05:09)
[2020-01-28 06:54] LABS: ANION GAP 8 (5-19); BLOOD UREA NITROGEN 26 mg/dL (7-20); CALCIUM 8.9 mg/dL (8.4-10.2); CARBON DIOXIDE 24 mmol/L (22-30); CHLORIDE 99 mmol/L (98-107); POTASSIUM 3.5 mmol/L (3.6-5.0)
[2020-01-28 06:58] LABS: GLUCOSE 42 mg/dL (75-110)
[2020-01-28 07:58] LABS: CHOLESTEROL 182.49 mg/dL (0-200); TRIGLYCERIDES 76 mg/dL (<150)
[2020-01-28] MEDS ORDERED: INSULIN NPH (ISOPHANE), HUMAN 100 UNIT/ML 3 ML SUBCUT SCH (08:00)
[2020-01-28] MEDS: INSULIN LISPRO 100 UNIT/ML 3 ML VIAL SUBCUT SCH ×2 (08:00→11:47)
[2020-01-28 08:09] LABS: DIRECT LDL 114 mg/dL (<100)
[2020-01-28 08:30] VITALS: BP 120/74
[2020-01-28] MEDS: INSULIN GLARGINE,HUM.REC.ANLOG 1,000 UNIT/10 ML VIAL (PYX) SUBCUT ONE ×2 (08:32→08:46)
[2020-01-28] MEDS ORDERED: INSULIN GLARGINE,HUM.REC.ANLOG 1,000 UNIT/10 ML VIAL (PYX) SUBCUT ONE (08:45)
[2020-01-28] MEDS ORDERED: ASPIRIN 81 MG TABLET, ENT COATED PO SCH (10:00)
[2020-01-28] MEDS ORDERED: LOSARTAN POTASSIUM 50 MG TABLET PO SCH (10:00)
[2020-01-28] MEDS: FLUTICASONE NASAL SPRAY 50 MCG/SPRY 120 SPRAY/16 GM NASL SCH (10:53)
[2020-01-28] MEDS: FAMOTIDINE 20 MG TABLET PO SCH (10:53)
[2020-01-28] MEDS: FLUTICASONE/VILANTEROL 100-25 MCG/DOSE IH SCH (10:53)
[2020-01-28] MEDS: TERBINAFINE HCL 250 MG TABLET PO SCH (10:54)
[2020-01-28] MEDS: CLOPIDOGREL BISULFATE 75 MG TABLET PO SCH (10:54)
--- NOTE | 2020-01-28 11:07 | PDOC DISCHARGE SUMMARY ---
Impression - Admit/DC Date/PCP Admission Date/Primary Care Provider: 01/26/20 13:28 CYNTHIA LÓPEZ Discharge Date: 01/28/20 - Discharge Diagnosis (1) Acute ischemic stroke Is this a current diagnosis for this admission?: Yes (2) Hyponatremia Is this a current diagnosis for this admission?: Yes (3) Acute metabolic encephalopathy Is this a current diagnosis for this admission?: Yes (4) Nausea, vomiting and diarrhea Is this a current diagnosis for this admission?: Yes (5) Onychomycosis Is this a current diagnosis for this admission?: Yes (6) Chronic allergic rhinitis Is this a current diagnosis for this admission?: Yes (7) Diabetes mellitus Is this a current diagnosis for this admission?: Yes (8) Tobacco dependence Is this a current diagnosis for this admission?: Yes (9) HTN (hypertension) Is this a current diagnosis for this admission?: Yes - Additional Information Resuscitation Status: Full Code Discharge Diet: As Tolerated Referrals: CYNTHIA LÓPEZ MD [Primary Care Provider] - Follow up as needed Prescriptions: Losartan Potassium [Cozaar 50 mg Tablet] 50 mg PO Q12 #60 tablet Aspirin [Ecotrin 81 mg EC Tablet] 81 mg PO DAILY #30 tabec Terbinafine HCl [Lamisil 250 mg Tablet] 250 mg PO DAILY 30 Days #30 tablet Atorvastatin Calcium [Lipitor 40 mg Tablet] 40 mg PO QHS #30 tablet Clopidogrel Bisulfate [Plavix 75 mg Tablet] 75 mg PO DAILY #21 tablet Ondansetron [Zofran Odt 4 mg Tablet] 1 - 2 tab PO Q4HP PRN #10 tab.rapdis PRN Reason: For Nausea/Vomiting Home Medications: Albuterol Sulfate [Proair HFA Inhalation Aerosol 8.5 gm MDI] 2 puff IH Q6HP PRN 03/14/17 Fluticasone/Salmeterol [Advair 250-50 Diskus 14 Dose/Diskus] 1 puff IH Q12 03/14/17 Omeprazole 40 mg PO BID 03/14/17 Ergocalciferol (Vitamin D2) [Drisdol 50,000 unit (1.25MG) Capsule] 50,000 unit PO ALDANA@1000 01/25/20 Fluticasone Propionate [Flonase Nasal [place] 50 Mcg/[place] 16 gm] 1 spray NASL DAILY 01/25/20 Insulin Aspart [Novolog Flexpen] 0 unit SUBCUT .SLD SCALE 01/25/20 Insulin Detemir [Levemir] 20 unit SQ QAM 01/25/20 Insulin Detemir [Levemir] 25 unit SQ QPM 01/25/20 Aspirin [Ecotrin 81 mg EC Tablet] 81 mg PO DAILY #30 tabec 01/28/20 Atorvastatin Calcium [Lipitor 40 mg Tablet] 40 mg PO QHS #30 tablet 01/28/20 Clopidogrel Bisulfate [Plavix 75 mg Tablet] 75 mg PO DAILY #21 tablet 01/28/20 Losartan Potassium [Cozaar 50 mg Tablet] 50 mg PO Q12 #60 tablet 01/28/20 Ondansetron [Zofran Odt 4 mg Tablet] 1 - 2 tab PO Q4HP PRN #10 tab.rapdis 01/28/20 Terbinafine HCl [Lamisil 250 mg Tablet] 250 mg PO DAILY 30 Days #30 tablet 01/28/20 History of Present Illiness History of Present Illness: JEYSON HELLER is a 59 year old male diabetes mellitus, deafness, GERD, [place]re's esophagus status post endoscopic ablations, chronic rhinorrhea, who was brought into the hospital by EMS on request of patient's fiance. Of note, most of history obtained from patient's fianc as patient is a poor historian. Patient apparently has been having nausea vomiting for the past few days and has been unable to keep down much of anything. Patient has a poor diet with drinking a lot of sodas and poor caloric intake. Recently over the past 2 days patient has become more fatigued, more wobbly when walking and started experiencing some visual changes. This prompted patient's fiance to send patient to the hospital for evaluation. She also notes that he has an area of redness and infection in his finger of his left middle finger and does state that he has a history of MRSA infections. Hospital Course Hospital Course: Patient was admitted and treated for hyponatremia. Patient had hypovolemic hypoosmolar hyponatremia secondary to dehydration and poor caloric intake. This improved significantly with administration of normal saline as well as improved p.o. intake. Patient was also noted to have had visual changes with worsening site which occurred acutely becoming notable about 2 days prior to presentation in the ER. This prompted evaluation with MRI which revealed an acute lacunar stroke in his right occipital region. Stroke protocol was deployed. Patient was evaluated by physical therapy. Today I evaluated patient with assistance of nurse and patient was ambulatory but did need some assistance but otherwise able to walk most of the hallway. Was noted to be somewhat unsteady on his feet but this is more longstanding for patient after discussing with his fiance and will be defined with front-wheeled walker and a cane which his fiance states they have at home. Patient was started on aspirin and 21 days of Plavix as well as atorvastatin. Patient was also diagnosed with moderate severe onychomycosis of his left middle finger which was confirmed with a potassium hydroxide prep. Patient is to take terbinafine for 4 to 6 weeks for treatment of this. Patient has been started on losartan for hypertension. Patient is safe and stable to be discharged and would like to be discharged home. Physical Exam Vital Signs: Temp Pulse Resp BP Pulse Ox 97.1 F 95 18 120/74 100 01/28/20 08:23 01/28/20 08:23 01/28/20 08:23 01/28/20 08:23 01/28/20 08:23 Intake & Output 01/27/20 01/28/20 01/29/20 06:59 06:59 06:59 Intake Total 2200 5281 Output Total 2705 Balance 2200 2576 Weight 51.9 kg 53.1 kg General appearance: PRESENT: no acute distress, cooperative Neck exam: ABSENT: JVD Respiratory exam: PRESENT: clear to auscultation zaid Neurological exam: PRESENT: alert, awake Results Laboratory Results: WBC 7.1 10^3/uL (4.0-10.5) 01/26/20 04:53 RBC 4.14 10^6/uL (4.35-5.55) L 01/26/20 04:53 Hgb 12.3 g/dL (13.5-17.0) L 01/26/20 04:53 Hct 34.5 % (37.9-51.0) L 01/26/20 04:53 MCV 83 fl (80-97) 01/26/20 04:53 MCH 29.6 pg (27.0-33.4) 01/26/20 04:53 MCHC 35.6 g/dL (32.0-36.0) 01/26/20 04:53 RDW 14.3 % (11.5-14.0) H 01/26/20 04:53 Plt Count 290 10^3/uL (150-450) 01/26/20 04:53 Lymph % (Auto) 11.7 % (13-45) L 01/25/20 15:15 Sandoval % (Auto) 5.3 % (3-13) 01/25/20 15:15 Eos % (Auto) 0.2 % (0-6) 01/25/20 15:15 Baso % (Auto) 1.0 % (0-2) 01/25/20 15:15 Absolute Neuts (auto) 6.8 10^3/uL (1.7-8.2) 01/25/20 15:15 Absolute Lymphs (auto) 1.0 10^3/uL (0.5-4.7) 01/25/20 15:15 Absolute Monos (auto) 0.4 10^3/uL (0.1-1.4) 01/25/20 15:15 Absolute Eos (auto) 0.0 10^3/uL (0.0-0.6) 01/25/20 15:15 Absolute Basos (auto) 0.1 10^3/uL (0.0-0.2) 01/25/20 15:15 Seg Neutrophils % 81.8 % (42-78) H 01/25/20 15:15 Sodium 130.5 mmol/L (137-145) L 01/28/20 06:16 Potassium 3.5 mmol/L (3.6-5.0) L 01/28/20 06:16 Chloride 99 mmol/L (98-107) 01/28/20 06:16 Carbon Dioxide 24 mmol/L (22-30) 01/28/20 06:16 Anion Gap 8 (5-19) 01/28/20 06:16 BUN 26 mg/dL (7-20) H 01/28/20 06:16 Creatinine 0.81 mg/dL (0.52-1.25) 01/28/20 06:16 Est GFR ( Amer) > 60 (>60) 01/28/20 06:16 Est GFR (Non-Af Amer) Cancelled 01/28/20 05:09 Est GFR (MDRD) Non-Af > 60 (>60) 01/28/20 06:16 Glucose 42 mg/dL (75-110) L 01/28/20 06:16 POC Glucose 384 mg/dL (70-110) H 01/28/20 08:08 Hemoglobin A1c % 12.4 % (4.7-6.0) H 01/28/20 05:09 Serum Osmolality 271 mOsm/kg (275-301) L 01/25/20 15:15 Calcium 8.9 mg/dL (8.4-10.2) 01/28/20 06:16 Phosphorus 3.3 mg/dL (2.5-4.5) 01/26/20 04:53 Magnesium 1.3 mg/dL (1.6-2.3) L 01/26/20 04:53 Total Bilirubin 0.6 mg/dL (0.2-1.3) 01/25/20 15:15 Direct Bilirubin 0.1 mg/dL (0.0-0.4) 01/25/20 15:15 Neonat Total Bilirubin Not Reportable 01/25/20 15:15 Neonat Direct Bilirubin Not Reportable 01/25/20 15:15 Neonat Indirect Bili Not Reportable 01/25/20 15:15 AST 17 U/L (17-59) 01/25/20 15:15 ALT 9 U/L (<50) 01/25/20 15:15 Alkaline Phosphatase 105 U/L (38-126) 01/25/20 15:15 Total Protein 5.9 g/dL (6.3-8.2) L 01/25/20 15:15 Albumin 3.0 g/dL (3.5-5.0) L 01/25/20 15:15 Triglycerides 76 mg/dL (<150) 01/28/20 06:16 Cholesterol 182.49 mg/dL (0-200) 01/28/20 06:16 LDL Cholesterol Direct 114 mg/dL (<100) H 01/28/20 06:16 VLDL Cholesterol 15.0 mg/dL (10-31) 01/28/20 06:16 HDL Cholesterol 61 mg/dL (>40) 01/28/20 06:16 EGFR Cancelled 01/28/20 05:09 TSH 0.47 uIU/mL (0.47-4.68) 01/26/20 04:53 Cortisol AM Sample 8.46 ug/dL (4.46-22.7) 01/27/20 04:54 Urine Osmolality 504 mOsm/kg (300-900) 01/25/20 17:10 Urine Sodium 111 mmol/L (30-90) H 01/25/20 17:10 MI Preparation POSITIVE (NEGATIVE) 01/27/20 10:45 Impressions: Chest X-Ray 01/26/20 00:00 IMPRESSION: No acute findings in the chest. Chronic pleural and parenchymal changes in the left upper lobe. Head MRI 01/26/20 00:00 IMPRESSION: 1. Acute lacunar infarction in the right occipital lobe white matter. 2. Senescent changes with chronic microvascular ischemia. Carotid Doppler Study 01/27/20 00:00 IMPRESSION: NO HEMODYNAMICALLY SIGNIFICANT STENOSIS. Plan Time Spent: Less than 30 Minutes Stroke Is this a Stroke Patient?: Yes Stroke Pt being discharged on Anti-thrombolytic therapy?: Yes Stroke Pt being discharged on Anti-coagulation therapy?: No Reason(s) for not prescribing Anti-coagulation therapy:: Not indicated Stroke Pt being discharged on Statins?: Yes Acute Heart Failure - Is this a Heart Failure Patient?: No
== END 2020-01-28 12:45 | disposition home health service (06) | DRG 62 ==
LOC: ER 13:50 → EH 17:05 → 4S 19:12 → OBSVTOIN 01-26 13:28 → 3S 01-27 11:54
PROVIDERS: ADMIT Internal Medicine; ATTEND Internal Medicine
DX: I63.81 Other cerebral infarction due to occlusion or stenosis of small artery (principal); E87.1 Hypo-osmolality and hyponatremia; G93.49 Other encephalopathy; G81.91 Hemiplegia, unspecified affecting right dominant side; R47.01 Aphasia; B35.1 Tinea unguium; J30.9 Allergic rhinitis, unspecified; I10 Essential (primary) hypertension; H91.90 Unspecified hearing loss, unspecified ear; K21.9 Gastro-esophageal reflux disease without esophagitis; K22.70 Barrett's esophagus without dysplasia; J34.89 Other specified disorders of nose and nasal sinuses; E86.0 Dehydration; E78.5 Hyperlipidemia, unspecified; J44.9 Chronic obstructive pulmonary disease, unspecified; F17.210 Nicotine dependence, cigarettes, uncomplicated; E86.1 Hypovolemia; K58.1 Irritable bowel syndrome with constipation; E11.65 Type 2 diabetes mellitus with hyperglycemia; R29.714 NIHSS score 14; Z53.29 Procedure and treatment not carried out because of patient's decision for other reasons; Z79.4 Long term (current) use of insulin; Z79.899 Other long term (current) drug therapy; Z86.14 Personal history of Methicillin resistant Staphylococcus aureus infection; Z91.14 Patient's other noncompliance with medication regimen
CPT/HCPCS: 36415; 70551; 71045; 80048; 80053; 80061; 82533; 82962; 83036; 83735; 83930; 83935; 84100; 84300; 84443; 85025; 85027; 87210; 93880; 96361; 96374; 99285; G0378; J0360; J1610; J1815; J2060; J2405; J3480; J3490; J7030

== ENCOUNTER 2020-02-15 05:32 | Day surgery (SDC) | payer MEDICARE, MEDICAID ==
[2020-02-15 06:08] LABS: ABSOLUTE BASOPHILS # (AUTO) 0.1 10^3/uL (0.0-0.2); ABSOLUTE LYMPHOCYTES (AUTO) 1.1 10^3/uL (0.5-4.7); ABSOLUTE NEUT (AUTO) 9.8 10^3/uL (1.7-8.2); BASOPHILS % (AUTO) 0.6 % (0-2); EOSINOPHILS % (AUTO) 0.3 % (0-6); HEMATOCRIT 33.2 % (37.9-51.0); HEMOGLOBIN 11.3 g/dL (13.5-17.0); LYMPHOCYTES % (AUTO) 9.2 % (13-45); MEAN CORPUSCULAR HEMOGLOBIN 28.8 pg (27.0-33.4); MEAN CORPUSCULAR HGB CONC 33.9 g/dL (32.0-36.0); MEAN CORPUSCULAR VOLUME 85 fl (80-97); PLATELET COUNT 348 10^3/uL (150-450); RED BLOOD COUNT 3.92 10^6/uL (4.35-5.55); SEGMENTED NEUTROPHILS % (AUTO) 81.9 % (42-78); TOTAL CELLS COUNTED % (AUTO) 100 %
--- NOTE | 2020-02-15 06:29 | RADIOLOGY REPORT (SQ) ---
EXAM DESCRIPTION: XR CHEST 1 VIEW COMPLETED DATE/TME: 02/15/2020 00:00 CLINICAL HISTORY: 59 years, Male, pre-op COMPARISON: 01/26/2020 chest NUMBER OF VIEWS: 1 TECHNIQUE: Portable chest LIMITATIONS: None. FINDINGS: The heart size is normal. Calcified granulomata of the left upper lobe and left base. Underlying COPD. Mild elevation left hemidiaphragm. No pneumothorax. Scarring in the left lung apex. Mild atheromatous change thoracic aorta IMPRESSION: No acute cardiopulmonary process copyright 2010 [employer]- All Rights Reserved
[2020-02-15 06:30] LABS: ANION GAP 18 (5-19); BLOOD UREA NITROGEN 30 mg/dL (7-20); CALCIUM 8.1 mg/dL (8.4-10.2); CARBON DIOXIDE 25 mmol/L (22-30); CHLORIDE 83 mmol/L (98-107); POTASSIUM 4.2 mmol/L (3.6-5.0)
[2020-02-15] MEDS: VANCOMYCIN HCL 1,000 MG in DEXTROSE 5%-WATER 250 ML IV PRN ×2 (06:45→06:53)
[2020-02-15 06:53] LABS: APPEARANCE,URINE CLEAR; BILIRUBIN,URINE NEGATIVE (NEGATIVE); COLOR,URINE YELLOW; GLUCOSE, URINE >=500 mg/dL (NEGATIVE); KETONES,URINE 20 mg/dL (NEGATIVE); LEUKOCYTE ESTERASE,URINE TRACE (NEGATIVE); NITRITE,URINE NEGATIVE (NEGATIVE); PROTEIN,URINE 30 mg/dL (NEGATIVE); UROBILINOGEN,URINE NEGATIVE mg/dL (<2.0)
[2020-02-15 07:02] LABS: GLUCOSE 431 mg/dL (75-110)
[2020-02-15 07:06] LABS: INTERNATIONAL RATION (INR) 1.09; PROTHROMBIN TIME 14.1 SEC (11.4-15.4)
[2020-02-15 07:07] LABS: PARTIAL THROMBOPLASTIN TIME 30.5 SEC (23.5-35.8)
[2020-02-15] MEDS ORDERED: FENTANYL CITRATE INJ/PF 100 MCG/2 ML AMPUL ONE (07:07)
[2020-02-15] MEDS ORDERED: MIDAZOLAM 2 MG/2 ML INJ ONE (07:07)
[2020-02-15] MEDS ORDERED: PROPOFOL INJ 200 MG/20 ML VIAL IV ONE (07:08)
[2020-02-15] MEDS ORDERED: ONDANSETRON HCL INJ/PF 4 MG/2 ML SDV ONE (07:08)
[2020-02-15] MEDS ORDERED: LIDOCAINE 1% INJ-PF (10 MG/ML) 30 ML SDV ONE (07:09)
[2020-02-15] MEDS ORDERED: FENTANYL CITRATE INJ/PF 100 MCG/2 ML AMPUL IV PRN ×3 (08:08)
[2020-02-15] MEDS ORDERED: MORPHINE SULFATE 10 MG/ML INJ IV PRN (08:08)
[2020-02-15] MEDS ORDERED: OXYCODONE-ACETAMINOPHEN 5-325 MG TABLET PO PRN ×3 (08:08→08:28)
[2020-02-15] MEDS ORDERED: PROMETHAZINE HCL INJ 25 MG/1 ML VIAL IV PRN ×2 (08:08)
[2020-02-15] MEDS ORDERED: DIPHENHYDRAMINE HCL 50 MG/ML VIAL IV PRN (08:08)
[2020-02-15] MEDS ORDERED: MEPERIDINE HCL/PF INJ 25 MG/1 ML DISP.SYRIN IV PRN (08:08)
[2020-02-15] MEDS ORDERED: ONDANSETRON HCL INJ/PF 4 MG/2 ML SDV IV PRN (08:28)
--- NOTE | 2020-02-15 08:33 | Operative Report ---
Operative Report DATE OF SURGERY: 02/15/20 PREOPERATIVE DIAGNOSIS: Left Middle Finger Osteomyelitis POSTOPERATIVE DIAGNOSIS: Same OPERATION: Left Middle Finger Distal Interphalangeal Joint Amputation. SURGEON: NUHA TALAVERA ANESTHESIA: LMAC TISSUE REMOVED OR ALTERED: left middle finger distal finger COMPLICATIONS: None ESTIMATED BLOOD LOSS: Minimal PROCEDURE: Indication for above procedure: 59-year-old male who sustained a infection to his left middle finger which underwent debridement and wound care unfortunately patient continued to have issues. Upon referral to myself there was evidence of exposed distal phalanx consistent with likely osteomyelitis. Given patient's smoking history, diabetes and poor wound healing decision was made to proceed with amputation. Risk and benefits were explained patient verbalized understanding consented for surgical procedure. Procedure in detail: Patient was seen and evaluated in the preoperative holding area. The RIGHT upper extremity was initialized and marked. Patient received vancomycin IV for bacterial prophylaxis. Patient was taken back to the operative room where transferred to the operative table. Once they were adequately anesthetized a nonsterile tourniquet was placed on the upper extremity. A surgical team debriefing was performed ensuring all instrumentation was available, the surgical procedure was discussed with possible concerns reviewed. A digital block was performed utilizing 10 mL of 1% lidocaine without epinephrine. The upper extremity was prepped with Betadine and draped in a sterile fashion. A timeout was done identifying correct patient, procedure and extremity everyone in attendance agree with this and verbalized no concerns. Digital tourniquet was placed. Long anterior skin incision was utilized. Blunt dissection was performed neurovascular bundles and digital arteries were identified and coagulated. Neurectomy was performed to the radial and ulnar digital nerves. The distal phalanx was skeletonized and excised including the FDP insertion and terminal extensor tendon. Germinal matrix of the nailbed was identified and excised in its entirety. Base of the nailbed coagulated with bipolar cautery to decrease incidence of future nail deformity. Cartilage along the distal portion of the middle phalanx was excised. Bone was sent to microbiology and remaining amputated digit sent to pathology. Digital tourniquet was then removed. There was normal skin turgor and perfusion throughout the flap and skin edges. Peripheral bleeding was controlled with bipolar cautery. Wound was copiously irrigated with normal saline. Skin was closed with interrupted 4-0 nylon suture edges were contoured to avoid dog-ear deformity. Wound was dressed with Xeroform and a soft dressing. Sponge counts, instrument counts, needle counts counts were correct. Patient was then awoken from anesthesia. Transferred from the operating room table to the operating room stretcher. There was no intraoperative complications patient tolerated procedure well stable to PACU. Postoperative plan: Patient will follow-up as scheduled for wound check. They will call with any questions or concerns.
[2020-02-15 10:29] VITALS: BP 100/58
--- NOTE | 2020-02-15 15:27 | EKG REPORT ---
SEVERITY:- ABNORMAL ECG - SINUS RHYTHM PROBABLE LEFT VENTRICULAR HYPERTROPHY BORDERLINE PROLONGED QT INTERVAL : Confirmed by: Meghan Coughlin MD 15-Feb-2020 15:26:53
--- NOTE | 2020-02-20 17:08 | Discharge Summary ---
Discharge Summary (SDC) - Discharge Final Diagnosis: Left Middle Finger Distal Phalanx Osteomyelitis Date of Surgery: 02/15/20 Discharge Date: 02/15/20 Condition: Good Treatment or Instructions: Schedule Follow Up w/ Dr. Myles Leyva @ [facility] for Surgery to be seen in 10-14 days or as scheduled [place]: Blue: [place]: May remove dressing on postop day #3, keep incision covered and dry. Ice and elevate May begin finger range of motion attempting to make full fist. Stool softener of choice when on pain medication. USE OF IBUF-WPU-ROYTXAK IBUPROFEN: Ibuprofen (Advil, Nuprin, Medipren, Motrin IB) is a medication for fever and pain control. In addition, it has anti- inflammatory effects which may be beneficial, especially in the treatment of injuries. It's best to take ibuprofen with food. Persons with ulcer disease or allergy to aspirin should notify their physician of this before taking ibuprofen. Ibuprofen can be given every four to six hours, for a total of four doses daily. Age Pain or fever dose Antiinflammatory dose 6-8 yr 200 mg (1 tab) 200 mg (1 tab) 9-11 yr 200 mg (1 tab) 200-400 mg (1-2 tab) 11-14 yr 200-400 mg (1-2 tab) 400 mg (2 tab) 15-adult 400 mg (2 tab) 600 mg (3 tab) ORAL NARCOTIC MEDICATION: You have been given a prescription for pain control. This medication is a narcotic. It's best taken with food, as nausea can result if taken on an empty stomach. Don't operate machinery or drive within six hours of taking this medication. Do not combine this medicine with alcohol, or with any medication which can cause sedation (such as cold tablets or sleeping pills) unless you get permission from the physician. Narcotics tend to cause constipation. If possible, drink plenty of fluids and eat a diet high in fiber and fruits. Please be aware that prescription narcotics also have the potential for abuse. People become addicted to these medications because of the general sense of wellbeing that they induce. This feeling along with a significant reduction in tension, anxiety, and aggression provides a stimulating seductive quality to these drugs. Once your pain is under control, we encourage you to discard your unused narcotics. Prescriptions: Sulfamethoxazole/Trimethoprim [Bactrim Ds Tablet] 1 each PO BID PRN #14 tablet PRN Reason: Oxycodone HCl/Acetaminophen [Percocet 5-325 mg Tablet] 1 tab PO ASDIR PRN #25 tab PRN Reason: Referrals: CYNTHIA LÓPEZ MD [Primary Care Provider] - Discharge Diet: As Tolerated Respiratory Treatments at Home: Deep Breathing/Coughing Discharge Activity: No Lifting Over 10 Pounds, No Lifting/Push/Pulling Report the Following to Your Physician Immediately: Fever over 101 Degrees, Unusual Bleeding, Redness, Swelling, Warmth, Increased Soreness
== END 2020-02-15 10:25 | disposition home or self-care (01) ==
LOC: OROUT 05:32
PROVIDERS: ATTEND Orthopaedic Surgery
DX: M86.142 Other acute osteomyelitis, left hand (principal); B95.1 Streptococcus, group B, as the cause of diseases classified elsewhere; B95.2 Enterococcus as the cause of diseases classified elsewhere; I73.1 Thromboangiitis obliterans [Buerger's disease]; E11.52 Type 2 diabetes mellitus with diabetic peripheral angiopathy with gangrene; Z79.01 Long term (current) use of anticoagulants; M79.645 Pain in left finger(s); F17.210 Nicotine dependence, cigarettes, uncomplicated; Z79.4 Long term (current) use of insulin; Z79.51 Long term (current) use of inhaled steroids; Z79.899 Other long term (current) drug therapy; J44.9 Chronic obstructive pulmonary disease, unspecified; I10 Essential (primary) hypertension; E11.319 Type 2 diabetes mellitus with unspecified diabetic retinopathy without macular edema; G62.9 Polyneuropathy, unspecified; N40.0 Benign prostatic hyperplasia without lower urinary tract symptoms; E87.1 Hypo-osmolality and hyponatremia; M48.00 Spinal stenosis, site unspecified; Z86.73 Personal history of transient ischemic attack (TIA), and cerebral infarction without residual deficits; G40.909 Epilepsy, unspecified, not intractable, without status epilepticus; I77.6 Arteritis, unspecified
CPT/HCPCS: 36415; 87070; 87205; 85025; 85610; 85730; 87075; 87077; 80048; 81001; 87186; 88305 ×2; 88311; 71045; 93005; 93010; 01830; 26951; J2250; J3490; J2405; J7060; J2704; J3370; 1830; J3010

== ENCOUNTER → 2020-07-17 | Outpatient (CLI) | payer MEDICARE, MEDICAID ==
[2020-07-17 11:01] LABS: ABSOLUTE EOSINOPHILS # (AUTO) 0.7 10^3/uL (0.0-0.6); ABSOLUTE LYMPHOCYTES (AUTO) 1.3 10^3/uL (0.5-4.7); ABSOLUTE MONOCYTES (AUTO) 0.6 10^3/uL (0.1-1.4); ABSOLUTE NEUT (AUTO) 3.7 10^3/uL (1.7-8.2); BASOPHILS % (AUTO) 0.7 % (0-2); HEMATOCRIT 35.1 % (37.9-51.0); HEMOGLOBIN 12.1 g/dL (13.5-17.0); LYMPHOCYTES % (AUTO) 20.2 % (13-45); MEAN CORPUSCULAR HEMOGLOBIN 30.2 pg (27.0-33.4); MEAN CORPUSCULAR HGB CONC 34.4 g/dL (32.0-36.0); MEAN CORPUSCULAR VOLUME 88 fl (80-97); MONOCYTES % (AUTO) 8.9 % (3-13); PLATELET COUNT 316 10^3/uL (150-450); RED CELL DISTRIBUTION WIDTH 15.6 % (11.5-14.0); SEGMENTED NEUTROPHILS % (AUTO) 59.2 % (42-78); TOTAL CELLS COUNTED % (AUTO) 100 %; WHITE BLOOD COUNT 6.2 10^3/uL (4.0-10.5)
[2020-07-17 11:09] LABS: ALBUMIN 3.7 g/dL (3.5-5.0); ALKALINE PHOSPHATASE 102 U/L (38-126); ANION GAP 9 (5-19); ASPARTATE AMINO TRANSFERASE 25 U/L (17-59); BILIRUBIN,DIRECT 0.3 mg/dL (0.0-0.4); BILIRUBIN,TOTAL 0.4 mg/dL (0.2-1.3); BLOOD UREA NITROGEN 13 mg/dL (7-20); C-REACTIVE PROTEIN 24.7 mg/L (<10.0); CALCIUM 9.5 mg/dL (8.4-10.2); CARBON DIOXIDE 30 mmol/L (22-30); CHLORIDE 96 mmol/L (98-107); GLUCOSE 294 mg/dL (75-110); POTASSIUM 4.1 mmol/L (3.6-5.0); TOTAL PROTEIN 6.6 g/dL (6.3-8.2)
[2020-07-17 11:48] LABS: ERYTHROCYTE SEDIMENTATION RATE 68 mm/hr (0-20)
== END ==
LOC: OD 10:02
PROVIDERS: ATTEND Plastic Surgery
DX: S61.203A Unspecified open wound of left middle finger without damage to nail, initial encounter (principal); X58.XXXA Exposure to other specified factors, initial encounter
CPT/HCPCS: 36415; 80053; 85025; 85652; 86140